=== PATIENT | male | born 1945 | race Caucasian/White ===

== ENCOUNTER 2017-05-13 15:33 | Inpatient (IN) ==
--- NOTE | 2017-05-12 22:03 | Discharge Summary ---
<Isabel Mai E - Last Filed: 05/12/17 22:01> Date of Encounter: 05/12/17 - Discharge Diagnosis (1) Arthritis of left hip Priority: Primary Status: Chronic (2) CAD (coronary artery disease) Priority: Secondary Status: Chronic Qualifiers: Coronary Disease-Associated Artery/Lesion type: unspecified vessel or lesion type [place] vs. transplanted heart: unspecified whether [place] or transplanted heart Associated angina: angina presence unspecified Qualified Code(s): I25.10 - Atherosclerotic heart disease of [place] coronary artery without angina pectoris (3) Ischemic cardiomyopathy Priority: Secondary Status: Chronic (4) Cardiac LV ejection fraction 21-30% Priority: Secondary Status: Chronic Comments: per patient 20-25% (5) History of heart artery stent Priority: Secondary Status: Chronic (6) Hypertension Priority: Secondary Status: Chronic Qualifiers: Hypertension type: unspecified Qualified Code(s): I10 - Essential (primary ) hypertension (7) Hyperlipidemia Priority: Secondary Status: Chronic Qualifiers: Hyperlipidemia type: unspecified Qualified Code(s): E78.5 - Hyperlipidemia , unspecified (8) BPH (benign prostatic hyperplasia) Priority: Secondary Status: Chronic Qualifiers: Lower urinary tract symptom presence: unspecified whether lower urinary tract symptoms present Qualified Code(s): N40.0 - Benign prostatic hyperplasia without lower urinary tract symptoms - Discharge Medications Prescriptions: Aspirin Enteric Coated [Aspirin EC] 325 mg PO BID #20 tablet. OxyKYLIEDONLinwood Immed Rel [Roxicodone 5 MG] 5 mg PO Q4HR PRN #30 tablet PRN Reason: Pain Home Medications: Atorvastatin [Lipitor] 40 mg PO HS 05/13/17 [History] Finasteride [Proscar] 5 mg PO DAILY 05/13/17 [History] Losartan/Hydrochlorothiazide [Hyzaar 100-25 Tablet] 1 each PO DAILY 05/13/17 [ History] Metoprolol XL (24 HR) Succ [Toprol Xl] 50 mg PO DAILY 05/13/17 [History] Spironolactone [Aldactone] 25 mg PO DAILY 05/13/17 [History] Aspirin Enteric Coated [Aspirin EC] 325 mg PO BID #20 tablet. 05/14/17 [Rx] OxyCODONE Immed Rel [Roxicodone 5 MG] 5 mg PO Q4HR PRN #30 tablet 05/14/17 [Rx] Allergies/Adverse Reactions: Allergies No Known Allergies Allergy (Verified 05/13/17 16:30) Primary care physician: Bright Alcantara CNP - Patient Status Disposition: Home Health Service Condition: Good - Discharge Instructions Follow Up With: Bright Alcantara CNP [Primary Care Provider] - - Hospital Course Hospital course: Mr. Cheema is a 71 year old male - Time Spent with Patient Total time spent providing and/or coordinating discharge services: - VTE Documentation of Mechanical Device: Venous foot pump, device <Mega Lynn - Last Filed: 05/14/17 06:45> Date of Encounter: 05/14/17 Time of Encounter: 06:43 - Discharge Diagnosis (1) Status post total hip replacement, left Priority: Primary Status: Acute (2) Arthritis of left hip Priority: Primary Status: Acute (3) CAD (coronary artery disease) Priority: Secondary Status: Chronic Qualifiers: Coronary Disease-Associated Artery/Lesion type: unspecified vessel or lesion type [place] vs. transplanted heart: unspecified whether [place] or transplanted heart Associated angina: angina presence unspecified Qualified Code(s): I25.10 - Atherosclerotic heart disease of [place] coronary artery without angina pectoris (4) Ischemic cardiomyopathy Priority: Secondary Status: Chronic (5) Cardiac LV ejection fraction 21-30% Priority: Secondary Status: Chronic (6) History of heart artery stent Priority: Secondary Status: Chronic (7) Hypertension Priority: Secondary Status: Chronic Qualifiers: Hypertension type: unspecified Qualified Code(s): I10 - Essential (primary ) hypertension (8) Hyperlipidemia Priority: Secondary Status: Chronic Qualifiers: Hyperlipidemia type: unspecified Qualified Code(s): E78.5 - Hyperlipidemia , unspecified (9) BPH (benign prostatic hyperplasia) Priority: Secondary Status: Chronic Qualifiers: Lower urinary tract symptom presence: unspecified whether lower urinary tract symptoms present Qualified Code(s): N40.0 - Benign prostatic hyperplasia without lower urinary tract symptoms Primary care physician: Bright Alcantara CNP - Patient Status Functional capacity at discharge: uses cane/walker Overall status at discharge: patient is progressing back to baseline - Hospital Course Hospital course: Mr. Cheema is a 71 year old male Status post left total hip replacement. The patient had an uneventful postoperative course. They received antibiotics and physical therapy and were discharged in stable condition. There will follow-up in the office in 2 weeks. Aspirin DVT prophylaxis - Time Spent with Patient Total time spent providing and/or coordinating discharge services:
--- NOTE | 2017-05-13 15:54 | History & Physical Report ---
Date of Encounter: 05/13/17 Time of Encounter: 15:54 24 Hour HP Update - Instructions Instructions: If the History and Physical is less than 30 days old and was completed prior to A.M. admission and or procedure and has NOT been updated on calendar day of procedure please complete this update prior to performing procedure. - Update Patient reports changes in Medical Condition: No Changes in examination, assessment, or condition: No Changes in Medication: No Preop tests/diagnostics Reviewed: Yes Surgery Remains Indicated: Yes Consent for Planned Operative Procedure(s) Verified: Yes - Pre-Operative Checklist Preoperative Checklist Indicated: No Prophylactic Antibiotic Ordered: Yes Is VTE Prophylaxis Indicated?: Yes
[2017-05-13] MEDS ORDERED: CeFAZolin Pre 2,000 MG/100 ML 2,000 MG/100 ML BAG IVPB ONE (15:59)
[2017-05-13] MEDS ORDERED: Lidocaine -MPF 1% 2 ML VIAL ID ONE (15:59)
[2017-05-13] MEDS ORDERED: Ringers Solution, Lactated 1,000 ML IVC SCH ×2 (16:00→20:43)
[2017-05-13] MEDS ORDERED: Famotidine 20 MG/2 ML VIAL IVP ONE (16:03)
[2017-05-13] MEDS ORDERED: Acetaminophen IV 1,000 MG/100 ML INFUS..BTL IVPB ONE (16:03)
--- NOTE | 2017-05-13 16:42 | Anesthesia Evaluation PreOp ---
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 History: Denies Any Significant HX Other Medical History: Denies Any Significant HX Anesthesia History: No Prior Anesthetic Complications Alcohol Use: rarely Drug use: none Medications and Allergies Aspirin [Lo-Dose Aspirin EC] 81 mg PO DAILY 05/13/17 [History] Atorvastatin Calcium [Lipitor] 40 mg PO DAILY 05/13/17 [History] Finasteride [Proscar] 5 mg PO DAILY 05/13/17 [History] Losartan/Hydrochlorothiazide [Hyzaar 100-25 Tablet] 1 each PO DAILY 05/13/17 [ History] Metoprolol [Lopressor] 50 mg PO BID 05/13/17 [History] Allergies No Known Allergies Allergy (Verified 05/13/17 16:30) - Meds/Allergy Pre-op Review Medications Reviewed: Yes Allergies Reviewed: Yes Beta Blockers on Current Med List: Yes (Took Metoprolol today 1300) Anesthesia Results - Labs Laboratory Tests 05/10/17 05/10/17 16:20 16:20 Hgb 12.6 L Hct 39.0 Plt Count 285 Sodium 139 Potassium 4.6 H BUN 24 Creatinine 1.14 - Imaging EKG: report reviewed (Sinus Rhytmn with Arrhythmia) Additional studies: Stress Test Negative, LVEF 20-25% Anesthesia Exam O2 Sat Height 1.89 m Height 1.89 m Weight 103.136 kg Weight 103.136 kg O2 Sat by Pulse Oximetry 96 Vital Signs Temp Pulse Resp BP Pulse Ox 97.9 F 74 20 124/77 96 05/13/17 16:03 05/13/17 16:03 05/13/17 16:03 05/13/17 16:03 05/13/17 16:03 Height: 6'3 Weight: 220 lbs NPO (# of Hours): MN Pain Scale: 0 - HEENT Pupil (Motor): Pupils equal, EOMI Mallampati: III Teeth: Normal, Missing Oral Opening: Less than or equal to 3 - CLOTH MERCERIZER BACK TENDER LOC: Oriented CLOTH MERCERIZER BACK TENDER Motor: Normal RUE, Normal LUE, Normal RLE, Normal LLE, Normal Face CLOTH MERCERIZER BACK TENDER Sensory: Normal: RUE, LUE, RLE, LLE, Face - Cardiac Rhythm: Regular Murmur: None JVD: No Carotid Bruit: No - Pulmonary Breath Sounds: bilateral Clear Respiratory Effort: Symmetrical Anesthesia Assess/Plan ASA Score: 4 (Cardiomyopathy HTN) Modified Rafiq Scale for Level of Consciousness: Cooperative, oriented, and tranquil Anesthetic Plan: General, Regional Monitoring Plan: Standard Monitors Recovery Plan: PACU (Discussed GA and RA, highr risk, agrees to proceed)
[2017-05-13] MEDS ORDERED: *HR* Midazolam HCl 2 MG/2 ML VIAL ONE (16:43)
[2017-05-13] MEDS ORDERED: *HR* Propofol 200 MG/20 ML VIAL IVP ONE (16:43)
[2017-05-13] MEDS ORDERED: *HR* FentaNYL (PF) 100 MCG/2 ML VIAL ONE ×3 (16:43→18:56)
[2017-05-13] MEDS ORDERED: *HR* Etomidate 40 MG/20 ML VIAL IVP ONE (16:44)
[2017-05-13] MEDS ORDERED: Lidocaine -MPF 2% 2 ML VIAL ONE ×2 (16:44→16:45)
[2017-05-13] MEDS ORDERED: Bupivacaine/Clonidine Syringe 1 EACH SYRINGE ONE (16:57)
[2017-05-13] MEDS ORDERED: Heparin 1,000 UNITS/500 mL NS 0 ML ONE (17:00)
[2017-05-13] MEDS ORDERED: Heparin 1,000 UNITS/500 mL NS 500 ML ONE (17:01)
[2017-05-13] MEDS ORDERED: Ondansetron 4 MG/2 ML VIAL IVP PRN ×2 (17:48→20:43)
--- NOTE | 2017-05-13 17:51 | Anesthesia Procedures ---
Date of Encounter: 05/13/17 Time of Encounter: 17:40 Procedures: Anesthesia - Nerve Block Procedure Date: 05/13/17 Time: 17:40 Allergies/Adv Reactions: nka Surgical Procedure: left NABOR Checklist: Correct Patient Identifier, Correct procedure, History checked Correct side: Left Blood Thinner: No Monitor Applied: EKG, BP, Pulse Oximetry Supplemental Oxygen via Nasal Cannula (L/min): 2 Sedation: Versed (mg): 1 Sedation: Fentanyl (mcg): 100 Indication: Post Op Analgesia Pre-op Neuro Deficits: No Block Type: Other (Fascia Iliaca) Catheter placed: No Sterile Technique: Yes Ultrasound used: Yes Anatomy identified: Yes Visual spread of Local: Yes Neuro Stimulation: No Blood on Needle Aspiration: No Smooth Injection of Local: Yes Pain with Injection of Local: No Prep: Chlorhexadine Needle: 22 x 50 mm Stimuplex Local: 0.25% Bupivicaine w/Clonidine 20 mcg/cc Volume (cc): 80 Number of Attempts: 1 Complications: None/effective block Vitals: Vital Signs/O2 Sat/Glucose, Most Recent Temp Pulse Resp BP Pulse Ox 97.9 F 71 14 134/84 99 05/13/17 16:03 05/13/17 17:18 05/13/17 17:18 05/13/17 17:18 05/13/17 17:18
--- NOTE | 2017-05-13 17:53 | Anesthesia Procedures ---
Date of Encounter: 05/13/17 Time of Encounter: 17:45 Procedures: Anesthesia - Arterial Line Consent obtained: written consent Time out performed: Yes Sedation: Versed (mg): 1 Supplemental Oxygen via Nasal Cannula (L/min): 2 Local Anesthetic: Lidocaine 1% Size (Gauge): 20 Length (inches): 1 3/4 Technique Used: sterile prep, guide wire technique, direct puncture technique Post-Procedure: line taped into place, dry sterile dressing placed Patient tolerated procedure: well, no complications Complications: none Site: Radial R Vitals: Vital Signs/O2 Sat/Glucose, Most Recent Temp Pulse Resp BP Pulse Ox 97.9 F 71 14 134/84 99 05/13/17 16:03 05/13/17 17:18 05/13/17 17:18 05/13/17 17:18 05/13/17 17:18
[2017-05-13] MEDS ORDERED: *HR* Enoxaparin 30 MG/0.3 ML SYRINGE SQ SCH (18:00)
[2017-05-13] MEDS ORDERED: *HR* Succinylcholine 200 MG/10 ML VIAL IVP ONE (18:07)
[2017-05-13] MEDS ORDERED: EPHEDrine 50 MG/ML VIAL ONE (18:12)
[2017-05-13] MEDS ORDERED: Dexamethasone 4 MG/ML VIAL ONE (18:24)
[2017-05-13] MEDS ORDERED: Ondansetron 4 MG/2 ML VIAL ONE (18:24)
--- NOTE | 2017-05-13 18:55 | Orthopedic Operative Note ---
Date of procedure: 05/13/17 Pre-op diagnosis: Left hip arthritis Post-op diagnosis: same Procedure: Procedure: Left Total Hip Replacment Estimated blood loss: 200 cc Hardware: Metal and polyethylene replacement. Biomet DM Cup: 58 G7 fin cup Femoral size 17 echo full profile lateralized stem Head: 12 head with Azucena Procedural Notes: Grade 4 arthritic changes femoral head acetabular socket. Operative procedure: The patient was brought to the operating room and placed on the operating room table. After general anesthesia was administered the patient was placed in the lateral decubitus position with the operative leg up. All pressure points were padded appropriately and the head was stabilized in the neutral position. The operative extremity was prepped and draped in the sterile surgical fashion patient received IV antibiotic prior to skin incision. A standard posterior approach is made to the operative hip, the incision was made through the skin and subcutaneous tissue hemostasis was obtained with Bovie cautery. Using careful sharp dissection the fascia was identified and incised exposing the external rotators. The external rotators were released off the greater trochanter and tagged with #2 FiberWire suture. The capsule was T'd open and the hip was brought into internal rotation. Patient noted to have grade 4 arthritic changes femoral head. The femoral neck cut was made at the appropriate level. An anterior capsulotomy was performed for the anterior retractor. Soft tissues removed from the acetabulum. Patient noted to have grade 4 arthritic changes acetabulum. Acetabulum was first reamed medially, and then reamed in 15 degrees of anteversion and 45 degrees off the horizontal. It was reamed up to the appropriate size 58 The appropriate-sized 58 acetabular cup was impacted in place in 15 degrees of anteversion and 45 degrees off the horizontal. This had good fit and fixation. The hip was brought back in to internal rotation and prepared with the box blank machine operator helper followed by the canal finder followed by broaching process in 20 degrees anteversion. It was broached up to the appropriate size 17 The femoral implant was impacted in place in 20 degrees of anteversion. Trial reduction found the hip to be stable with 12 head and Azucena. The trials were removed and the real implants were impacted in place. The hip was reduced, patient had apparent equal leg lengths. The hip had excellent stability with forward flexion to 90 degrees adduction of 30 degrees and internal rotation of 60 degrees. The hip had no shuck. The hips after 2 minutes with a Betadine saline solution. It was irrigated out with 2 L of pulse irrigation. The hip was closed by the PAUL Mai. Fascia was closed with a running #2 PDS suture. The deep tissue was irrigated and closed deep with #1 PDS suture superficially with 0 PDS suture and skin was closed with Dermabond and skin bhargavi. The patient was placed in a sterile dressing and abduction pillow. The patient was extubated and transferred to the recovery room in stable condition. Anesthesia: GETA Surgeon: Mega Lynn Condition: stable Disposition: PACU
[2017-05-13] MEDS: *HR* HYDROmorphone (PF) 1 MG/ML SYRINGE IVP PRN ×2 (19:35→19:43)
--- NOTE | 2017-05-13 19:57 | Anesthesia Evaluation Post Op ---
Date of Encounter: 05/13/17 Time of Encounter: 19:57 - Vital Signs Vital Signs: Vital Signs/O2 Sat/Glucose, Most Current Temp Pulse Resp BP Pulse Ox 05/13/17 19:55 97.4 F L 76 20 138/75 98 05/13/17 19:45 80 20 158/85 96 05/13/17 19:35 80 20 138/84 96 05/13/17 19:25 97.4 F L 73 22 148/86 97 05/13/17 17:18 71 14 134/84 99 05/13/17 16:03 97.9 F 74 20 124/77 96 - Lungs Lungs: Clear Ascult./Percussion - Airway Airway: Non-obstructed - Cardiovascular Regular Rate - Mental Status Mental Status: Alert & Oriented, Answers Appropriately - Pain Pain Scale: 2 - Nausea Vomiting Nausea Vomiting: Not Present - Hydration Hydration: NPO - Discharge PostOp Status: Transfer Patient to floor
[2017-05-13 20:09] LABS: Hematocrit 33.7 % (37.5-50.1)
[2017-05-13 20:12] LABS: Hemoglobin 10.9 g/dL (12.9-16.9)
[2017-05-13] MEDS ORDERED: Sennosides 8.6 MG TABLET PO PRN (20:43)
[2017-05-13] MEDS ORDERED: Naloxone 0.4 MG/ML INJ IVP PRN (20:43)
[2017-05-13] MEDS ORDERED: *HR* HYDROmorphone (PF) 1 MG/ML SYRINGE IVP PRN (20:43)
[2017-05-13] MEDS ORDERED: MOM Conc 10 ML UD.LIQ PO PRN (20:43)
[2017-05-13] MEDS ORDERED: *HR* OxyCODONE Immed Rel 5 MG TABLET PO PRN (20:43)
[2017-05-13] MEDS ORDERED: Temazepam 15 MG CAPSULE PO PRN (20:43)
[2017-05-13] MEDS: Ascorbic Acid 500 MG TABLET PO SCH (21:10)
[2017-05-14] MEDS: ceFAZolin 2,000 MG in D5% in Water 100 ML IVPB SCH ×2 (00:44→08:01)
[2017-05-14] MEDS: *HR* Enoxaparin 30 MG/0.3 ML SYRINGE SQ SCH ×2 (06:42→16:42)
--- NOTE | 2017-05-14 06:46 | Orthopedics Progress Note ---
Date of Encounter: 05/14/17 Time of Encounter: 06:46 - Assessment and Plan (1) Status post total hip replacement, left Current Visit: Yes Status: Acute (2) Arthritis of left hip Current Visit: Yes Status: Acute (3) CAD (coronary artery disease) Current Visit: Yes Status: Chronic Qualifiers: Coronary Disease-Associated Artery/Lesion type: unspecified vessel or lesion type [place] vs. transplanted heart: unspecified whether [place] or transplanted heart Associated angina: angina presence unspecified Qualified Code(s): I25.10 - Atherosclerotic heart disease of [place] coronary artery without angina pectoris (4) Ischemic cardiomyopathy Current Visit: Yes Status: Chronic (5) Cardiac LV ejection fraction 21-30% Current Visit: Yes Status: Chronic (6) History of heart artery stent Current Visit: Yes Status: Chronic (7) Hypertension Current Visit: Yes Status: Chronic Qualifiers: Hypertension type: unspecified Qualified Code(s): I10 - Essential (primary ) hypertension (8) Hyperlipidemia Current Visit: Yes Status: Chronic Qualifiers: Hyperlipidemia type: unspecified Qualified Code(s): E78.5 - Hyperlipidemia , unspecified (9) BPH (benign prostatic hyperplasia) Current Visit: Yes Status: Chronic Qualifiers: Lower urinary tract symptom presence: unspecified whether lower urinary tract symptoms present Qualified Code(s): N40.0 - Benign prostatic hyperplasia without lower urinary tract symptoms Subjective Interval history: Patient was seen this morning doing well without complaints. Afebrile vital signs stable. Operative extremity: Neurovascularly intact Dressing clean dry and intact Calves nontender Assessment and plan: Continue with postoperative care Hematocrit 33 plan for discharge today with home health Objective Vital signs: Vital Signs Temp Pulse Resp BP Pulse Ox 05/14/17 03:28 97.6 F 66 16 109/63 100 05/13/17 23:30 98.6 F 62 18 116/65 98 05/13/17 22:20 96.6 F L 65 16 115/69 99 05/13/17 21:15 96.7 F L 65 16 120/68 99 05/13/17 20:45 97.7 F 73 16 118/75 94 05/13/17 20:15 97.6 F 72 18 127/78 95 05/13/17 20:05 97.4 F L 71 16 139/73 99 05/13/17 19:55 97.4 F L 76 20 138/75 98 05/13/17 19:45 80 20 158/85 96 05/13/17 19:35 80 20 138/84 96 05/13/17 19:25 97.4 F L 73 22 148/86 97 05/13/17 17:18 71 14 134/84 99 05/13/17 16:03 97.9 F 74 20 124/77 96 Intake and Output 05/13/17 05/13/17 05/14/17 15:59 23:59 07:59 Intake Total 250 / 250 Output Total 200 / 200 150 / 150 Balance -200 / -200 100 / 100 Intake: Oral 250 / 250 Output: Urine 150 / 150 Estimated Blood Loss 200 / 200 Other: Weight 103.136 kg 103.136 kg - Labs CBC & BMP: 05/13/17 19:54 Labs: Abnormal lab results Hgb 10.9 g/dL (12.9-16.9) L D 05/13/17 19:54 Hct 33.7 % (37.5-50.1) L 05/13/17 19:54 - VTE Documentation of Mechanical Device: Venous foot pump, device Consult Discharge Plan - Plan Referrals: Bright Alcantara [facility] OFFICER [Primary Care Provider] - Prescriptions: Aspirin Enteric Coated [Aspirin EC] 325 mg PO BID #20 tablet. OxyCODONLinwood Immed Rel [Roxicodone 5 MG] 5 mg PO Q4HR PRN #30 tablet PRN Reason: Pain
[2017-05-14 07:36] LABS: Hematocrit 32.1 % (37.5-50.1); Hemoglobin 10.2 g/dL (12.9-16.9)
[2017-05-14 07:50] LABS: BUN/Creatinine Ratio 23 (6-26); Blood Urea Nitrogen 25 mg/dL (8-26); Calcium 8.7 mg/dL (8.6-10.8); Carbon Dioxide 26 mEq/L (19-29); Chloride 103 mEq/L (98-109); Glucose 160 mg/dL (70-99); Osmolality,Calculated 292 (280-300); Potassium 4.5 mEq/L (3.5-4.5); Sodium 137 mEq/L (136-145); eGFR For African Americans > 60 (> 60); eGFR For Non-African Americans > 60 (> 60)
[2017-05-14] MEDS: Aspirin Enteric Coated 81 MG Tablet PO SCH (07:56)
[2017-05-14] MEDS: Multivit/Ca/Min/Fe/FA 1 TAB TABLET PO SCH (07:56)
[2017-05-14] MEDS: Losartan/HCTZ 50-12.5 TABLET PO SCH (07:56)
[2017-05-14] MEDS: Ascorbic Acid 500 MG TABLET PO SCH ×2 (07:56→16:38)
[2017-05-14] MEDS: Finasteride 5 MG TABLET PO SCH (07:56)
[2017-05-14] MEDS: *HR* OxyCODONE Immed Rel 5 MG TABLET PO PRN ×3 (08:01→22:22)
--- NOTE | 2017-05-14 16:27 | Physician Discharge Referral ---
ExtendedCare Referral Info Transfer To: [facility] Provider in Charge: Dr. Mega Lynn Institutional Level of Care: Skilled - Diagnosis (1) Status post total hip replacement, left Priority: Primary Status: Acute (2) Arthritis of left hip Priority: Secondary Status: Chronic (3) CAD (coronary artery disease) Priority: Secondary Status: Chronic (4) Ischemic cardiomyopathy Priority: Secondary Status: Chronic (5) Cardiac LV ejection fraction 21-30% Priority: Secondary Status: Chronic (6) History of heart artery stent Priority: Secondary Status: Chronic (7) Hypertension Priority: Secondary Status: Chronic (8) Hyperlipidemia Priority: Secondary Status: Chronic (9) BPH (benign prostatic hyperplasia) Priority: Secondary Status: Chronic Expected Duration of Placement: 30days Prognosis: Good Aware of Diagnosis: Patient Aware of Prognosis: Patient - Transfer Medications Prescriptions: OxyCODONE Immed Rel [Roxicodone 5 MG] 5 mg PO Q4HR PRN #30 tablet PRN Reason: Pain Aspirin Enteric Coated [Aspirin EC] 325 mg PO BID #20 tablet.dr Pérez Medications: Atorvastatin [Lipitor] 40 mg PO HS 05/13/17 [History] Finasteride [Proscar] 5 mg PO DAILY 05/13/17 [History] Losartan/Hydrochlorothiazide [Hyzaar 100-25 Tablet] 1 each PO DAILY 05/13/17 [ History] Metoprolol XL (24 HR) Succ [Toprol Xl] 50 mg PO DAILY 05/13/17 [History] Spironolactone [Aldactone] 25 mg PO DAILY 05/13/17 [History] Aspirin Enteric Coated [Aspirin EC] 325 mg PO BID #20 tablet. 05/14/17 [Rx] OxyCODONE Immed Rel [Roxicodone 5 MG] 5 mg PO Q4HR PRN #30 tablet 05/14/17 [Rx] Allergies/Adverse Reactions: Allergies No Known Allergies Allergy (Verified 05/13/17 16:30) - Respiratory Orders Smoking Cessation: Smoking cessation has been advised. For more information, call the [facility] Tobacco Quit Line at 8-932-KUAX-NOW. - Ancillary Orders May use pressure relief devices daily prn, May go on [place]IC[place] w/family/respon republican w /meds at nurse discretion PRN, May consult with Dentist, Flying Squad Salesperson, Stopperer Assembler PRN - Mobility Orders Ambulate (with walker) - Rehabiliation Orders Rehab Potential: Good Rehab Orders: ROM Exercises, Evaluation for Physical Therapy, Evaluation for Occupational Therapy Other: PT/OT WBAT Total Hip precautions for 6 weeks. Apply cold therapy wrap 3-6x/day for 20 minutes at a time. Encourage ambulation throughout the day and incentive spirometer 10x/hour. Abductor pillow while in bed. - Treatments Skin tear care topically daily PRN per policy List/Other: Opsite placed. Keep dressing intact until first follow up appointment. If > 50% saturated,notify office, remove dressing and place appropriate dressing back in place. Dressing is water resistant, not water-proof. OK to shower, but do not get dressing wet. - Diet Orders Regular CERTIFICATION: I certify that the transfer of the above named patient to an Extended Care Facility is necessary for the continuing treatment of the diagnosis listed. The above information is true and accurate reflection of patient's current condition. Confidential - Redisclosure prohibited without a patient's written consent.
[2017-05-15 06:08] LABS: Hematocrit 26.2 % (37.5-50.1)
[2017-05-15 06:17] LABS: Hemoglobin 8.6 g/dL (12.9-16.9)
[2017-05-15 06:22] LABS: Calcium 8.4 mg/dL (8.6-10.8); Potassium 3.7 mEq/L (3.5-4.5)
[2017-05-15] MEDS: *HR* Enoxaparin 30 MG/0.3 ML SYRINGE SQ SCH (06:32)
--- NOTE | 2017-05-15 07:55 | Orthopedics Progress Note ---
Date of Encounter: 05/15/17 Time of Encounter: 07:55 - Assessment and Plan (1) Status post total hip replacement, left Current Visit: Yes Status: Acute (2) Arthritis of left hip Current Visit: Yes Status: Chronic (3) CAD (coronary artery disease) Current Visit: Yes Status: Chronic Qualifiers: Coronary Disease-Associated Artery/Lesion type: unspecified vessel or lesion type [place] vs. transplanted heart: unspecified whether [place] or transplanted heart Associated angina: angina presence unspecified Qualified Code(s): I25.10 - Atherosclerotic heart disease of [place] coronary artery without angina pectoris (4) Ischemic cardiomyopathy Current Visit: Yes Status: Chronic (5) Cardiac LV ejection fraction 21-30% Current Visit: Yes Status: Chronic (6) History of heart artery stent Current Visit: Yes Status: Chronic (7) Hypertension Current Visit: Yes Status: Chronic Qualifiers: Hypertension type: unspecified Qualified Code(s): I10 - Essential (primary ) hypertension (8) Hyperlipidemia Current Visit: Yes Status: Chronic Qualifiers: Hyperlipidemia type: unspecified Qualified Code(s): E78.5 - Hyperlipidemia , unspecified (9) BPH (benign prostatic hyperplasia) Current Visit: Yes Status: Chronic Qualifiers: Lower urinary tract symptom presence: unspecified whether lower urinary tract symptoms present Qualified Code(s): N40.0 - Benign prostatic hyperplasia without lower urinary tract symptoms Subjective Interval history: Patient was seen this morning doing well without complaints. Afebrile vital signs stable. Operative extremity: Neurovascularly intact Dressing clean dry and intact Calves nontender Assessment and plan: Continue with postoperative care Hemoglobin 8.6 asymptomatic plan for discharge today with home health Objective Vital signs: Vital Signs Temp Pulse Resp BP Pulse Ox 05/14/17 23:52 97.2 F L 65 17 101/51 97 05/14/17 20:11 97.4 F L 67 17 103/55 97 05/14/17 15:43 97.7 F 81 16 97/50 96 05/14/17 12:03 98.2 F 58 16 93/47 97 05/14/17 10:29 108/66 Intake and Output 05/14/17 05/14/17 05/15/17 15:59 23:59 07:59 Intake Total 120 / 120 400 / 400 Balance 120 / 120 400 / 400 Intake: Oral 120 / 120 400 / 400 Other: Meal Breakfast Dinner Percent of Meal Consumed 75% 100% # Voids 2 Weight 103 kg Patient Weight 05/15/17 23:59 Weight 103 kg - Labs CBC & BMP: 05/15/17 05:54 05/15/17 05:54 Labs: Abnormal lab results Hgb 8.6 g/dL (12.9-16.9) L D 05/15/17 05:54 Hct 26.2 % (37.5-50.1) L 05/15/17 05:54 Sodium 135 mEq/L (136-145) L 05/15/17 05:54 BUN 46 mg/dL (8-26) H D 05/15/17 05:54 Creatinine 1.60 mg/dL (0.72-1.25) H 05/15/17 05:54 Est GFR ( Amer) 52 (> 60) L 05/15/17 05:54 Est GFR (Non-Af Amer) 43 (> 60) L 05/15/17 05:54 BUN/Creatinine Ratio 29 (6-26) H 05/15/17 05:54 Glucose 133 mg/dL (70-99) H 05/15/17 05:54 Calcium 8.4 mg/dL (8.6-10.8) L 05/15/17 05:54 - VTE Documentation of Mechanical Device: Venous foot pump, device Consult Discharge Plan - Plan Referrals: Bright Alcantara CNP [Primary Care Provider] - Prescriptions: Aspirin Enteric Coated [Aspirin EC] 325 mg PO BID #20 tablet.dr Chua Immed Rel [Roxicodone 5 MG] 5 mg PO Q4HR PRN #30 tablet PRN Reason: Pain
[2017-05-15 08:06] VITALS: BP 122/69
[2017-05-15] MEDS: Finasteride 5 MG TABLET PO SCH (08:32)
[2017-05-15] MEDS: Multivit/Ca/Min/Fe/FA 1 TAB TABLET PO SCH (08:32)
[2017-05-15] MEDS: Ascorbic Acid 500 MG TABLET PO SCH (08:32)
[2017-05-15] MEDS: Aspirin Enteric Coated 81 MG Tablet PO SCH (08:32)
[2017-05-15] MEDS: Losartan/HCTZ 50-12.5 TABLET PO SCH (08:33)
== END 2017-05-15 12:08 | disposition home health service (06) | DRG 470 ==
LOC: SAMDAY 15:33 → 3NENU 20:33
PROVIDERS: ADMIT Orthopaedic Surgery; ATTEND Orthopaedic Surgery

== ENCOUNTER 2019-01-14 04:44 | Inpatient (IN) ==
[2019-01-14 09:57] LABS: Basophils % 0.2 %; Eosinophils # 0.1 K/mcL (0.0-0.6); Eosinophils % 0.7 %; Hematocrit 32.3 % (37.5-50.1); Hemoglobin 11.3 g/dL (12.9-16.9); Immature Granulocytes % 0.4 % (0-4); Lymphocytes # 0.6 K/mcL (0.6-4.6); Lymphocytes % 4.8 %; Mean Corpuscular Hemoglobin 29.6 pg (28.0-33.3); Mean Corpuscular Volume 84.6 fL (83.0-100.0); Mean Platelet Volume 9.4 fL (9.4-12.4); Monocytes # 1.2 K/mcL (0.0-1.3); Monocytes % 9.9 %; Neutrophils # 10.4 K/mcL (1.6-8.9); Platelet Count 257 K/mcL (140-400); Red Blood Count 3.82 M/mcL (4.19-5.50); Red Cell Distribution Width 12.9 % (11.5-14.5)
[2019-01-14 10:18] LABS: Alanine Aminotransferase 15 Units/L (7-52); Albumin 3.2 g/dL (3.5-5.7); Albumin/Globulin Ratio 1.5 (1.1-2.2); Alkaline Phosphatase 53 Units/L (34-104); Aspartate Amino Transferase 21 Units/L (13-39); BUN/Creatinine Ratio 18 (6-26); Bilirubin,Total 0.5 mg/dL (0.3-1.0); Blood Urea Nitrogen 9 mg/dL (8-23); Calcium 8.4 mg/dL (8.6-10.3); Carbon Dioxide 35 mEq/L (23-29); Chloride 81 mEq/L (98-107); Globulin 2.1 g/dL (2.4-3.5); Glucose 123 mg/dL (70-105); Osmolality,Calculated 250 (280-300); Potassium 3.8 mEq/L (3.5-5.1); Sodium 120 mEq/L (136-145); Total Protein 5.3 g/dL (6.4-8.9); eGFR For Non-African Americans > 60 (> 60)
[2019-01-14] MEDS ORDERED: Acetaminophen 325 MG TABLET PO PRN (12:16)
[2019-01-14] MEDS ORDERED: Naloxone 0.4 MG/ML INJ IVP PRN (12:16)
[2019-01-14] MEDS ORDERED: Isovue-370 500 ML BOTTLE IVP ONE (12:21)
[2019-01-14] MEDS ORDERED: Melatonin 3 MG TABLET PO PRN (12:26)
[2019-01-14] MEDS ORDERED: 0.9 % Sodium Chloride 1,000 ML IVC SCH (12:30)
--- NOTE | 2019-01-14 12:59 | Nephrology Consult Note ---
Date of Encounter: 01/14/19 Time of Encounter: 12:30 Assessment and Plan (1) Hyponatremia Current Visit: Yes Status: Acute Hyponatremia without edema on exam. PNa at 120 and appears to be acute on chronic and progressively worsening. Potential differential diagnoses includes: medication from HCTZ, CHF with low EF, prerenal (he has lost so much weight r ecently) vs undiagnosed malignancy induced hyponatremia. Recommend avoiding thiazide type diuretics, and so will have to stop the HCTZ. Agree with checking TSH, Cortisol to ensure that there is no hypothyroidism or adrenal insufficiency contributing to the hyponatremia. Also agree with check U Na and Uosm with frequent PNa checks to ensure that the hyponatremia is slowly and safely improved for a goal of 6-8mEq per 24hr. Further recommendations to follow based upon the pending work up. Agree with gentle 0.9% saline for now since he may be slightly dry appearing on exam. Thank you for consulting the [facility]; will follow with you. (2) Weight loss Current Visit: Yes Status: Acute Check HIV and hepatitis (3) BPH (benign prostatic hyperplasia) Current Visit: No Status: Chronic Agree with CT abd to ensure there is no urinary retention, which could contribute to hyponatremia if he had a partial urinary track obstruction. Qualifiers: Lower urinary tract symptom detail: unspecified Qualified Code(s): N40.1 - Benign prostatic hyperplasia with lower urinary tract symptoms (4) Hypertension Current Visit: No Status: Chronic Hold the thiazide diuretics. Qualifiers: Hypertension type: unspecified Qualified Code(s): I10 - Essential (primary) hypertension (5) Ischemic cardiomyopathy Current Visit: No Status: Chronic He had not JVD or peripheral edema on exam, but has known chronic systolic HF. Check BNP. History of Present Illness - Reason for Consult Consult date: 01/14/19 hyponatremia Requesting physician: Charles Pritchett - Chief Complaint Hyponatremia - History of Present Illness Colin Cheema is a very pleasant 73 y/o WM with a pmh of BPH, HTN, chronic systlic CHF and recent impressive weight loss over the last 6-9 months who transferred from [facility][1] with hyponatremia. I received a nice page from the hospitalist. The pt was largely somnolent and unable to provide detail history, but his granddaughter was present and help supplement history. She said that he had lived alone after his , and the granddaughter said that he found a lady partner who stayed with him who may have been a drug user, and just recently the pt moved in with his granddaughter. Since then he has gained some weight back since they are ensuring he is eating/drinking better. He drinks only about the equivalent of 1 bottle of water per day but has been consuming Gatorade mostly and soups. He has not been drinking beer/wine/liquor. He has been more confused, according to the granddaughter over this week. She said he was in the ER on Saturday at [place], and then hospitalized there for the last few days; he had been awake mostly at night and napping during the day. He said he has been urinating well without feelings of urinary retention, he said. He has been taking HCTZ and not taking NSAIDs to the pt's knowledge. Family History: no relatives with ESRD were affirmed. Past Med Surg Social Fam HX - Past Medical History Medical history: CHF, coronary artery disease, hyperlipidemia, hypertension, my ocardial infarction Psychiatric history: no psych history - Past Surgical History Surgical History: hip replacement Additional surgical history: Back surgery, left hip sx, prostate sx. - Social History Smoking Status: Former smoker Smokeless Tobacco Status: No Alcohol use: none Drug use: none - Family History Mother Living Status: Hx Family Cardiac Disorders: Yes (HTN) Hx Family Cancer: Yes (breast, skin face) Father Living Status: Hx Family Cancer: Yes (prostate) Medications and Allergies Atorvastatin [Lipitor] 40 mg PO HS 05/13/17 [History] Finasteride [Proscar] 5 mg PO DAILY 05/13/17 [History] Losartan/Hydrochlorothiazide [Hyzaar 100-25 Tablet] 1 each PO DAILY 05/13/17 [History] Metoprolol XL (24 HR) Succ [Toprol Xl] 50 mg PO DAILY 05/13/17 [History] Spironolactone [Aldactone] 25 mg PO DAILY 05/13/17 [History] Acetaminophen [Tylenol] 1,000 mg PO DAILY 01/14/19 [History] Aspirin [Lo-Dose Aspirin EC] 81 mg PO DAILY 01/14/19 [History] Melatonin [Melatin] 3 mg PO HS PRN 01/14/19 [History] Allergy/AdvReac Type Severity Reaction Status Date / Time Penicillins [PCN] Allergy Hives Verified 01/14/19 10:19 Review of Systems ROS unobtainable: due to mental status Exam - Vital Signs Vital signs: Initial Vital Signs Temp Pulse Resp BP Pulse Ox 98.5 F 78 18 133/77 93 01/14/19 07:29 01/14/19 07:29 01/14/19 07:29 01/14/19 07:29 01/14/19 07:29 Vital Signs - Last 8 Hours Temp Pulse Resp BP Pulse Ox 01/14/19 11:04 98.2 F 80 18 141/85 96 01/14/19 07:29 98.5 F 78 18 133/77 93 Intake and Output 01/13/19 01/14/19 01/14/19 23:59 07:59 15:59 Other: Weight 86.2 kg Patient Weight 01/14/19 23:59 Weight 86.2 kg - General Appearance General appearance: appears started age, cachectic, fatigue, frail EENT: ATNC, mucous membranes dry Neck: no JVD, supple Respiratory: clear Cardiology: no edema, regular rate, regular rhythm, normal S1, normal S2 Gastrointestinal: normoactive bowel sounds, no guarding, no organomegaly Additional Comments: thin abd Integumentary: warm and dry Neurologic: confused, disoriented (and falls alseep easily) Musculoskeletal: no deformities, no cyanosis, no clubbing Psychiatric: cooperative Results - Lab Results 01/14/19 09:20 01/14/19 09:20 Most recent lab results Calcium 8.4 mg/dL (8.6-10.3) L 01/14/19 09:20 Consult Discharge Plan - Plan Referrals: Mika Stokes MD [Primary Care Provider] - 01/27/19 8:30 am
[2019-01-14] MEDS: Metoprolol XL (24 HR) Succ 50 MG TAB.ER.24H PO SCH (13:49)
[2019-01-14 15:12] LABS: Sodium, Urine 69.4 mEq/L
[2019-01-14 16:14] LABS: Hepatitis B Surface Antigen Nonreactive (Nonreactive)
--- NOTE | 2019-01-14 16:16 | Internal Med History&Physical ---
Date of Encounter: 01/14/19 Time of Encounter: 09:00 Internal Medicine - H&P: HPI Chief complaint: Low sodium level Admitted From: Home Plans for Post Hospital Care: Home History of present illness: Mr. Cheema is a 73 year old male transferred from [facility] for hyponatremia. Past medical history is significant for systolic CHF with LVEF 25-30%, hypertension, skin basal cell cancer, CAD S/P stent. Patient was admitted to [facility] for cough after eating since Saturday. Patient was treated as bronchitis. Patient also was found hyponatremia in the emergency room or [facility]. Patient was treated with 0.9% saline, however, his sodium level does not improve significantly. He was also given 3% saline but sodium level still low. Patient also has significant body weight loss, which is unintentional. He lost 45 lb over last 6 months. Patient did denies a fever, chest pain, nausea, or vomiting. Patient denies melena, heartburn. Patient was transferred to our hospital for further management. Past Med Surg Social Fam HX - Past Medical History Medical history: CHF, coronary artery disease, hyperlipidemia, hypertension, myocardial infarction Psychiatric history: no psych history - Past Surgical History Surgical History: hip replacement Additional surgical history: Back surgery, left hip sx, prostate sx. - Social History Smoking Status: Former smoker Smokeless Tobacco Status: No Alcohol use: none Drug use: none - Family History Mother Living Status: Hx Family Cardiac Disorders: Yes (HTN) Hx Family Cancer: Yes (breast, skin face) Father Living Status: Hx Family Cancer: Yes (prostate) Internal Medicine - H&P: Meds Atorvastatin [Lipitor] 40 mg PO HS 05/13/17 [History] Finasteride [Proscar] 5 mg PO DAILY 05/13/17 [History] Losartan/Hydrochlorothiazide [Hyzaar 100-25 Tablet] 1 each PO DAILY 05/13/17 [History] Metoprolol XL (24 HR) Succ [Toprol Xl] 50 mg PO DAILY 05/13/17 [History] Spironolactone [Aldactone] 25 mg PO DAILY 05/13/17 [History] Acetaminophen [Tylenol] 1,000 mg PO DAILY 01/14/19 [History] Aspirin [Lo-Dose Aspirin EC] 81 mg PO DAILY 01/14/19 [History] Melatonin [Melatin] 3 mg PO HS PRN 01/14/19 [History] Allergy/AdvReac Type Severity Reaction Status Date / Time Penicillins [PCN] Allergy Hives Verified 01/14/19 10:19 All Systems PM: A 10-system review of systems was performed and is negative for pertinent findings except as documented above in the HPI. - Constitutional Vitals: Temp Pulse Resp BP Pulse Ox 98.2 F 80 18 141/85 96 01/14/19 11:04 01/14/19 11:04 01/14/19 11:04 01/14/19 11:04 01/14/19 11:04 Exam: Pt is AAO x 3, in NAD HEENT: NC/AT, PERRL, skin cancer s/p biopsy on nose, right cheek, and left post- ear area Neck: Supple, no JVD, no LAD Lungs: CTA b/l Heart: S1S2, RRR Abd: Soft, nontender, BS present Ext: ROM wnl, no pedal edema Neuro: No focal deficit Internal Med - H&P Results - Labs CBC & Chem 7: 01/14/19 09:20 01/14/19 14:57 Labs: Short CBC 01/14/19 Range/Units 09:20 WBC 12.4 H (4.3-11.1) K/mcL Hgb 11.3 L (12.9-16.9) g/dL Hct 32.3 L (37.5-50.1) % Plt Count 257 (140-400) K/mcL Neutrophils # 10.4 H (1.6-8.9) K/mcL BMP 01/14/19 01/14/19 09:20 14:57 Sodium 120 L* 118 L* Potassium 3.8 Chloride 81 L Carbon Dioxide 35 H BUN 9 Creatinine 0.50 L Glucose 123 H Calcium 8.4 L Liver Function 01/14/19 Range/Units 09:20 Total Bilirubin 0.5 (0.3-1.0) mg/dL AST 21 (13-39) Units/L ALT 15 (7-52) Units/L Alkaline Phosphatase 53 (34-104) Units/L Albumin 3.2 L (3.5-5.7) g/dL - Impressions ITS Impressions Abdomen/Pelvis CT 01/14/19 12:21 IMPRESSION: Circumferential rectal wall thickening, with adjacent presacral soft tissue edema. There is also a small lymph nodes seen adjacent to the rectum measuring 7.4 mm. Differential considerations include proctitis, though a circumferential nonobstructive rectal mass cannot be excluded given patient's history of weight loss. Recommend correlation with colonoscopy. No other concerning process seen for neoplasm within the chest, abdomen or pelvis. Trace bilateral pleural effusions, with minimal emphysematous change. Minimal tree-in-bud like opacities noted at the right lung base posteriorly, as well as left basilar airspace disease and some areas of hyperdense material noted which can be seen in the setting of aspiration. Questionable mild bilateral hydronephrosis versus small parapelvic cysts. No obstructive calculi or mass. No ureteral dilation. D/ / David Og MD / David Og MD Interpreting Provider: David Og MD Chest CT 01/14/19 12:21 IMPRESSION: Circumferential rectal wall thickening, with adjacent presacral soft tissue edema. There is also a small lymph nodes seen adjacent to the rectum measuring 7.4 mm. Differential considerations include proctitis, though a circumferential nonobstructive rectal mass cannot be excluded given patient's history of weight loss. Recommend correlation with colonoscopy. No other concerning process seen for neoplasm within the chest, abdomen or pelvis. Trace bilateral pleural effusions, with minimal emphysematous change. Minimal tree-in-bud like opacities noted at the right lung base posteriorly, as well as left basilar airspace disease and some areas of hyperdense material noted which can be seen in the setting of aspiration. Questionable mild bilateral hydronephrosis versus small parapelvic cysts. No obstructive calculi or mass. No ureteral dilation. D/ / David Og MD / David Og MD Interpreting Provider: David Og MD - Assessment and Plan (1) Systolic CHF Current Visit: Yes Status: Acute Assessment and plan: Appears euvolemic at this point. Continue home medication beta pavithra and ARB. Patient is scheduled for AICD placement next week in cardiology office. Qualifiers: Heart failure chronicity: chronic Qualified Code(s): I50.22 - Chronic systolic (congestive) heart failure (2) Dysphagia Current Visit: Yes Status: Acute Assessment and plan: Patient complains of cough on eating. Etiology undetermined. - Swallow evaluation saw patient, recommended regular diet. However, patient does not want to eat. Plan for MBS tomorrow. - MR brain has been done, negative for stroke. Qualifiers: Dysphagia type: unspecified Qualified Code(s): R13.10 - Dysphagia, unspecified (3) DVT prophylaxis Current Visit: Yes Status: Acute Assessment and plan: Heparin subcutaneously (4) Hyponatremia Current Visit: Yes Status: Acute Assessment and plan: Persistent hyponatremia, etiology undetermined. Patient seems has chronic hyponatremia since 20 days ago, progressively getting worse. - CT chest shows no signs of lung cancer - Nephrology consult appreciated. Recommendations will be followed. - Give low rate 0.9 saline IV with consent of systolic CHF. - Place patient on fluid restriction - Closely monitor sodium level. Avoid fast correction. Goal of correction is not more than 8 mEq over 24 hours. (5) Weight loss Current Visit: Yes Status: Acute Assessment and plan: Etiology is undetermined. - CT abdomen shows Circumferential rectal wall thickening, will consult GI for further management. (6) CAD (coronary artery disease) Current Visit: No Status: Chronic Assessment and plan: Denies chest pain. Will continue home medications Qualifiers: Coronary Disease-Associated Artery/Lesion type: unspecified vessel or lesion type [place] vs. transplanted heart: unspecified whether [place] or transplanted heart Associated angina: angina presence unspecified Qualified Code(s): I25.10 - Atherosclerotic heart disease of [place] coronary artery without angina pectoris (7) Hypertension Current Visit: No Status: Chronic Assessment and plan: Continue home medications Qualifiers: Hypertension type: essential hypertension Qualified Code(s): I10 - Essential (primary) hypertension - Time Spent With Patient Total time spent is greater than 50% in coordination of care (as documented) at patient's floor/unit and/or counseling patient: 40 minutes Greater than 35 minutes
[2019-01-14 16:42] LABS: Hepatitis C Virus Antibody Nonreactive (Nonreactive)
[2019-01-14 16:43] LABS: HIV-1&2 Antibody & p24 Ag Nonreactive (Nonreactive)
[2019-01-14 16:45] LABS: Hepatitis A Antibody IgM Nonreactive (Nonreactive); Hepatitis B Core IgM Nonreactive (Nonreactive)
[2019-01-14] MEDS: *HR* Heparin 5,000 UNIT/ML VIAL SQ SCH (18:29)
--- NOTE | 2019-01-15 03:04 | Event Note ---
Date of Encounter: 01/14/19 Time of Encounter: 18:56 Alerted by pts. nurse [email or web address] Perry that the pts. NA was 117. Nurse instructed that the NA should not increase more than 8 mEq in 24 hours. Alerted at 23:42 that Na was now 118. Previous Na values on 01/14 were 120, 118, 117, and current of 118. 0.9 IV NS ordered @ 60 mls/hr. This order DCd and changed to rate of 75 mls/hr. Nurse instructed to continue monitoring pt. very closely and notify me immediately of any adverse changes. Cardiac monitoring already ordered. Nephrology, GI, and Nutrition all consulted. Will continue to monitor f/u labs closely.
[2019-01-15 03:35] LABS: Basophils % 0.2 %; Eosinophils # 0.1 K/mcL (0.0-0.6); Hematocrit 32.6 % (37.5-50.1); Hemoglobin 11.4 g/dL (12.9-16.9); Immature Granulocytes % 0.3 % (0-4); Lymphocytes # 0.4 K/mcL (0.6-4.6); Lymphocytes % 3.9 %; Mean Corpuscular Hemoglobin 29.8 pg (28.0-33.3); Mean Corpuscular Volume 85.3 fL (83.0-100.0); Monocytes # 0.7 K/mcL (0.0-1.3); Monocytes % 6.8 %; Neutrophils # 9.2 K/mcL (1.6-8.9); Platelet Count 249 K/mcL (140-400); Red Blood Count 3.82 M/mcL (4.19-5.50); Red Cell Distribution Width 12.9 % (11.5-14.5); Segmented Neutrophils % 87.8 %
[2019-01-15] MEDS ORDERED: D5% in Water 1,000 ML IVC PRN (03:43)
[2019-01-15] MEDS ORDERED: Dextrose Gel 15 GM/37.5 ML TUBE PO PRN ×2 (03:43)
[2019-01-15] MEDS ORDERED: *HR* Dextrose 50 % in Water (Syg) 50 ML SYRINGE IVP PRN (03:43)
[2019-01-15 03:56] LABS: BUN/Creatinine Ratio 21 (6-26); Blood Urea Nitrogen 8 mg/dL (8-23); Calcium 8.5 mg/dL (8.6-10.3); Carbon Dioxide 35 mEq/L (23-29); Chloride 83 mEq/L (98-107); Glucose 130 mg/dL (70-105); Magnesium 1.7 mg/dL (1.6-2.6); Osmolality,Calculated 248 (280-300); Sodium 119 mEq/L (136-145); eGFR For Non-African Americans > 60 (> 60)
[2019-01-15 04:10] LABS: Thyroid Stimulating Hormone 0.302 mcIU/mL (0.340-5.600)
[2019-01-15] MEDS: *HR* Heparin 5,000 UNIT/ML VIAL SQ SCH ×2 (06:11→18:01)
[2019-01-15] MEDS: 0.9 % Sodium Chloride 1,000 ML IVC SCH (07:39)
[2019-01-15] MEDS: Spironolactone 25 MG TABLET PO SCH (07:41)
[2019-01-15] MEDS: Aspirin Enteric Coated 81 MG Tablet PO SCH (07:41)
[2019-01-15] MEDS: Metoprolol XL (24 HR) Succ 50 MG TAB.ER.24H PO SCH (07:42)
[2019-01-15] MEDS: Finasteride 5 MG TABLET PO SCH (07:42)
[2019-01-15] MEDS ORDERED: hydroCHLOROthiazide 25 MG TABLET PO SCH (09:00)
--- NOTE | 2019-01-15 12:14 | Gastroenterology Consult Note ---
Date of Encounter: 01/15/19 Time of Encounter: 10:15 - Assessment and plan (1) Abnormal finding on imaging Current Visit: Yes Status: Acute Assessment and plan: CT A/P with circumferential rectal wall thickening with small lymph node adjacent to rectum measuring 7.4 mm. Plan for colonoscopy to evaluate, once sodium stable. (2) Weight loss Current Visit: Yes Status: Acute Assessment and plan: Plan for EGD and colonoscopy once sodium stable. (3) Hyponatremia Current Visit: Yes Status: Acute Assessment and plan: Management per primary team. - Time Spent With Patient Total time spent is greater than 50% in coordination of care (as documented) at patient's floor/unit and/or counseling patient: GI History of Present Illness - Data of Consult Patient: new to practice Consult date: 01/15/19 Requesting Physician: Eder Granger MD - Consult Narrative Reason for consult: Rectal mass on CT History of present illness: Mr. Cheema is a 73 year old male with PMHx of CHF, CAD, HLD, HTN, ID who was transferred from [facility] for hyponatremia. Patient was sleeping and difficult to arouse, information from chart review and patients daughter at bedside. CT head overnight showed no definite acute intracranial abnormality, but limited due to motion artifact. Patient was treated with 0.9% saline, however, his sodium level did not improve significantly. He was also given 3% saline but sodium level still low. Daughter reports that the patient has lost significant weight recently. We were consulted to evaluate a rectal mass. CT A/P with circumferential rectal wall thickening with small lymph node adjacent to rectum measuring 7.4 mm. Procedures: No record of scopes NSAIDs: ASA Anticoagulation: None Past Med Surg Social Fam HX - Past Medical History Medical history: CHF, coronary artery disease, hyperlipidemia, hypertension, myocardial infarction Psychiatric history: no psych history - Past Surgical History Surgical History: hip replacement Additional surgical history: Back surgery, left hip sx, prostate sx. - Social History Smoking Status: Former smoker Smokeless Tobacco Status: No Alcohol use: none Drug use: none - Family History Mother Living Status: Hx Family Cardiac Disorders: Yes (HTN) Hx Family Cancer: Yes (breast, skin face) Father Living Status: Hx Family Cancer: Yes (prostate) ROS unobtainable: due to mental status - Constitutional Vitals: Temp Pulse Resp BP Pulse Ox 97.3 F L 67 22 129/83 99 01/15/19 07:27 01/15/19 07:27 01/15/19 07:27 01/15/19 07:27 01/15/19 07:27 General appearance: Present: no acute distress - Head Head exam: Present: atraumatic, normocephalic - Eye Eye exam: Present: normal appearance, sclera anicteric - ENT ENT exam: Present: mucous membranes dry - Neck Neck exam general surgery: Present: normal inspection, trachea midline - Respiratory Respiratory exam: Present: CTAB. Absent: rales, rhonchi - Cardiovascular Cardiovascular exam: Present: RRR, +S1, +S2 - GI/Abdominal GI/Abdominal exam: Present: soft, no peritoneal signs. Absent: distended, firm, guarding, tenderness - Rectal Rectal exam: Present: deferred - Extremities Exam Extremities exam: Present: warm - Neurological Exam Neurological exam: Present: no focal deficits - Psychiatric Psychiatric exam: Present: normal affect, normal mood - Skin Skin exam: Present: dry, intact, normal color, warm Results - Labs CBC & Chem 7: 01/15/19 03:20 01/15/19 09:53 Labs: Last Result Calcium 8.5 mg/dL (8.6-10.3) L 01/15/19 03:20 Entire Visit Hgb 11.4 g/dL (12.9-16.9) L 01/15/19 03:20 Hct 32.6 % (37.5-50.1) L 01/15/19 03:20 Total Bilirubin 0.5 mg/dL (0.3-1.0) 01/14/19 09:20 AST 21 Units/L (13-39) 01/14/19 09:20 ALT 15 Units/L (7-52) 01/14/19 09:20 Ammonia 67 mcmol/L (16-53) H 01/15/19 06:10 - Impressions Impressions Abdomen/Pelvis CT 01/14/19 12:21 IMPRESSION: Circumferential rectal wall thickening, with adjacent presacral soft tissue edema. There is also a small lymph nodes seen adjacent to the rectum measuring 7.4 mm. Differential considerations include proctitis, though a circumferential nonobstructive rectal mass cannot be excluded given patient's history of weight loss. Recommend correlation with colonoscopy. No other concerning process seen for neoplasm within the chest, abdomen or pelvis. Trace bilateral pleural effusions, with minimal emphysematous change. Minimal tree-in-bud like opacities noted at the right lung base posteriorly, as well as left basilar airspace disease and some areas of hyperdense material noted which can be seen in the setting of aspiration. Questionable mild bilateral hydronephrosis versus small parapelvic cysts. No obstructive calculi or mass. No ureteral dilation. D/ / David Og MD / David Og MD Interpreting Provider: David Og MD Chest CT 01/14/19 12:21 IMPRESSION: Circumferential rectal wall thickening, with adjacent presacral soft tissue edema. There is also a small lymph nodes seen adjacent to the rectum measuring 7.4 mm. Differential considerations include proctitis, though a circumferential nonobstructive rectal mass cannot be excluded given patient's history of weight loss. Recommend correlation with colonoscopy. No other concerning process seen for neoplasm within the chest, abdomen or pelvis. Trace bilateral pleural effusions, with minimal emphysematous change. Minimal tree-in-bud like opacities noted at the right lung base posteriorly, as well as left basilar airspace disease and some areas of hyperdense material noted which can be seen in the setting of aspiration. Questionable mild bilateral hydronephrosis versus small parapelvic cysts. No obstructive calculi or mass. No ureteral dilation. D/ / David Og MD / David Og MD Interpreting Provider: David Og MD Brain MRI 01/14/19 12:23 IMPRESSION: 1. No acute infarct or acute intracranial process identified. 2. Mild chronic small vessel ischemic changes. D/ / Arcenio Wray MD / Arcenio Wray MD Interpreting Provider: Arcenio Wray MD Head CT 01/15/19 03:37 IMPRESSION: Severely limited exam with no definite acute intracranial abnormality. Consider repeat imaging once the patient is able to remain still. D/ / Gal Carrizales MD / Gal Carrizales MD Interpreting Provider: Gal Carrizales MD Consult Discharge Plan - Plan Referrals: Michael Gonzalez MD [Partnered Physician] - (Sent web request on 01-15-19 @ 0090) Mika Stokes MD [Primary Care Provider] - 01/27/19 8:30 am
--- NOTE | 2019-01-15 12:35 | Nephrology Progress Note ---
Date of Encounter: 01/15/19 Time of Encounter: 10:30 - Assessment and Plan (1) Hyponatremia Current Visit: Yes Status: Acute Ongoing and minimally changed. CT abd demonstrated potential b/l hydronephrosis, so I recommend placing a drew catheter. Cont to follow the frequent PNa. He is asymptomatic and would not need 3% saline. His Uosmo is elevated and so if his PNa does not improve, then I would stop the 0.9% saline and start Tolvaptan 15mg po x1. His family was present and I updated them of these recommendations this afternoon He remains complex and very ill and has required a high degree of MDM and E/M. My colleague Dr. Andrade will be on-call starting tomorrow. I'll provide a thorough sign-out to her. (2) Bilateral hydronephrosis Current Visit: Yes Status: Acute See above. Noted on CT abd. (3) Weight loss Current Visit: Yes Status: Acute (4) BPH (benign prostatic hyperplasia) Current Visit: No Status: Chronic Qualifiers: Lower urinary tract symptom detail: unspecified Qualified Code(s): N40.1 - Benign prostatic hyperplasia with lower urinary tract symptoms (5) Hypertension Current Visit: No Status: Chronic Qualifiers: Hypertension type: essential hypertension Qualified Code(s): I10 - Essential (primary) hypertension (6) Ischemic cardiomyopathy Current Visit: No Status: Chronic Subjective Principal diagnosis: Hyponatremia Interval history: Pt was s/e in his 2N room with his family at beside (grandson grand daught in law). He was not able to communicate or stay wake during the exam, which limited the subjective portion of the note Objective - Vital Signs Vital signs: Vital Signs Temp Pulse Resp BP Pulse Ox 01/15/19 11:54 97.6 F 65 18 140/78 100 01/15/19 07:27 97.3 F L 67 22 129/83 99 01/14/19 23:11 98 F 76 19 156/86 98 01/14/19 19:15 98.0 F 73 18 150/90 95 01/14/19 17:08 98.0 F 76 18 138/90 95 Intake and Output 01/14/19 01/15/19 01/15/19 23:59 07:59 15:59 Intake Total 240 / 240 637 / 637 0 / 0 Output Total 200 / 200 Balance 40 / 40 637 / 637 0 / 0 Intake: IV Fluids 637 / 637 0.9 % Sodium Chloride 1,000 ML 637 / 637 @ 60 mls/hr IVC .[id number] [facility] Rx #:[id number] Oral 240 / 240 0 / 0 Output: Urine 200 / 200 Other: Meal Dinner NPO Percent of Meal Consumed 65% 0% # Urine Diapers 1 Blood Glucose* 106 111 - General Appearance Exam: General appearance: appears started age, cachectic, fatigue, frail EENT: ATNC, mucous membranes dry Neck: no JVD, supple Respiratory: clear Cardiology: no edema, regular rate, regular rhythm, normal S1, normal S2 Gastrointestinal: normoactive bowel sounds, no guarding, no organomegaly Additional Comments: thin abd Integumentary: warm and dry Neurologic: confused, disoriented (and falls alseep easily) Musculoskeletal: no deformities, no cyanosis, no clubbing Psychiatric: cooperative when he awoke to tactile stimuli - Lab 01/19/19 04:10 01/19/19 04:10 Most recent lab results Calcium 8.5 mg/dL (8.6-10.3) L 01/15/19 03:20 Magnesium 1.7 mg/dL (1.6-2.6) 01/15/19 03:20 Urine Creatinine 49 mg/dL 01/14/19 14:45 Urine Sodium 69.4 mEq/L 01/14/19 14:45 Consult Discharge Plan - Plan Referrals: Michael Gonzalez MD [Partnered Physician] - (Sent web request on 01-15-19 @ 2647) Mika Stokes MD [Primary Care Provider] - 01/27/19 8:30 am
--- NOTE | 2019-01-15 12:51 | Internal Med Progress Note ---
Hospitalist Progress Note - Encounter Date of Encounter: 01/15/19 Time of Encounter: 12:46 - Subjective Interval History: I have seen and evaluated the patient at bedside. Patient somnolent but arousable to command. - Exam Vitals: Temp Pulse Resp BP Pulse Ox 97.6 F 65 18 140/78 100 01/15/19 11:54 01/15/19 11:54 01/15/19 11:54 01/15/19 11:54 01/15/19 11:54 Exam: Vitals: reviewed General: Alert and oriented x2. Somnolent HEENT: Dry mucus membrane, EOM, pupils equal, round and reactive. Cardiovascular: RRR, normal S1 & S2, no rubs, murmurs or gallops. Lungs: CTA, no wheezes or crackles. Abdomen: Soft, non-tender, no rigidity. Extremities: No edema Neurological: unable to assess due to somnolence. Rest of the physical exam is non contributory - Assessment and Plan (1) Hyponatremia Current Visit: Yes Status: Acute Assessment and Plan: discussed with pulmonology critical care. recommended to increase the fluid to 150ml/hr x1 hour and repeat the BMP at 2pm. Nurse has been informed about the plan. neuro checks Q1HR. Nephrology recommendations appreciated T3,T4 ordered, THS low fluids restriction to 1.5 litters a day. 12 lead EKG ordered. (2) CAD (coronary artery disease) Current Visit: No Status: Chronic Assessment and Plan: patient on aspirin 81mg/PO daily (3) Hypertension Current Visit: No Status: Chronic Assessment and Plan: BP well controlled on losartan and metoprolol/ (4) Weight loss Current Visit: Yes Status: Acute (5) Systolic CHF Current Visit: Yes Status: Acute Assessment and Plan: patient is euvolemic. diuretics have been held due to hyponatremia. fluids restriction to 1.5 litter a day daily weight and strict intake and output. (6) Dysphagia Current Visit: Yes Status: Acute Assessment and Plan: Barrium swallow evaluation has been ordered. (7) Altered mental status Current Visit: Yes Status: Acute Assessment and Plan: possible due to severe hyponatremia. patient found to have elevated ammonia level. started on lactulose 20gm/PO BID. EEG ordered to r/o sub-clinical seizures. (8) Rectal mass Current Visit: Yes Status: Suspected Assessment and Plan: CT abdomen with finding of a possible rectal mass GI has been consulted. recommendations appreciated (9) BPH (benign prostatic hyperplasia) Current Visit: No Status: Chronic Assessment and Plan: continue finasteride 5mg/PO daily (10) Hyperlipidemia Current Visit: No Status: Chronic Assessment and Plan: on statin DVT Prophylaxis: On heparin SubQ - Summary of Assessment and Plan Summary of Assessment and Plan: Patient to remain in the hospital due to severe hyponatremia - Time Spent with Patient Total time spent is greater than 50% in coordination of care (as documented) at patient's floor/unit and/or counseling patient: Greater than 35 minutes (45) Plan of Care Discussed with: nurse (and the patient's family at bedside.) Internal Medicine: Result - Labs CBC & Chem 7: 01/15/19 03:20 01/15/19 09:53 Labs: Short CBC 01/15/19 Range/Units 03:20 WBC 10.5 (4.3-11.1) K/mcL Hgb 11.4 L (12.9-16.9) g/dL Hct 32.6 L (37.5-50.1) % Plt Count 249 (140-400) K/mcL Neutrophils # 9.2 H (1.6-8.9) K/mcL BMP 01/14/19 01/14/19 01/14/19 14:57 18:10 22:53 Sodium 118 L* 117 L* 118 L* Potassium Chloride Carbon Dioxide BUN Creatinine Glucose Calcium 01/15/19 01/15/19 01/15/19 03:20 03:20 06:10 Sodium 119 L* TNP 120 L* Potassium 4.0 Chloride 83 L Carbon Dioxide 35 H BUN 8 Creatinine 0.39 L Glucose 130 H Calcium 8.5 L 01/15/19 09:53 Sodium 120 L* Potassium Chloride Carbon Dioxide BUN Creatinine Glucose Calcium - Impressions Impressions Abdomen/Pelvis CT 01/14/19 12:21 IMPRESSION: Circumferential rectal wall thickening, with adjacent presacral soft tissue edema. There is also a small lymph nodes seen adjacent to the rectum measuring 7.4 mm. Differential considerations include proctitis, though a circumferential nonobstructive rectal mass cannot be excluded given patient's history of weight loss. Recommend correlation with colonoscopy. No other concerning process seen for neoplasm within the chest, abdomen or pelvis. Trace bilateral pleural effusions, with minimal emphysematous change. Minimal tree-in-bud like opacities noted at the right lung base posteriorly, as well as left basilar airspace disease and some areas of hyperdense material noted which can be seen in the setting of aspiration. Questionable mild bilateral hydronephrosis versus small parapelvic cysts. No obstructive calculi or mass. No ureteral dilation. D/ / David Og MD / David Og MD Interpreting Provider: David Og MD Chest CT 01/14/19 12:21 IMPRESSION: Circumferential rectal wall thickening, with adjacent presacral soft tissue edema. There is also a small lymph nodes seen adjacent to the rectum measuring 7.4 mm. Differential considerations include proctitis, though a circumferential nonobstructive rectal mass cannot be excluded given patient's history of weight loss. Recommend correlation with colonoscopy. No other concerning process seen for neoplasm within the chest, abdomen or pelvis. Trace bilateral pleural effusions, with minimal emphysematous change. Minimal tree-in-bud like opacities noted at the right lung base posteriorly, as well as left basilar airspace disease and some areas of hyperdense material noted which can be seen in the setting of aspiration. Questionable mild bilateral hydronephrosis versus small parapelvic cysts. No obstructive calculi or mass. No ureteral dilation. D/ / David Og MD / David Og MD Interpreting Provider: David Og MD Brain MRI 01/14/19 12:23 IMPRESSION: 1. No acute infarct or acute intracranial process identified. 2. Mild chronic small vessel ischemic changes. D/ / Arcenio Wray MD / Arcenio Wray MD Interpreting Provider: Arcenio Wray MD Head CT 01/15/19 03:37 IMPRESSION: Severely limited exam with no definite acute intracranial abnormality. Consider repeat imaging once the patient is able to remain still. D/ / Gal Carrizales MD / Gal Carrizales MD Interpreting Provider: Gal Carrizales MD Consult Discharge Plan - Plan Referrals: Michael Gonzalez MD [Partnered Physician] - (Sent web request on 01-15-19 @ 0650) Mika Stokes MD [Primary Care Provider] - 01/27/19 8:30 am (2) CAD (coronary artery disease) Qualifiers: Coronary Disease-Associated Artery/Lesion type: unspecified vessel or lesion type [place] vs. transplanted heart: unspecified whether [place] or transplanted heart Associated angina: angina presence unspecified Qualified Code(s): I25.10 - Atherosclerotic heart disease of [place] coronary artery without angina pectoris (3) Hypertension Qualifiers: Hypertension type: essential hypertension Qualified Code(s): I10 - Essential (primary) hypertension (5) Systolic CHF Qualifiers: Heart failure chronicity: chronic Qualified Code(s): I50.22 - Chronic systolic (congestive) heart failure (6) Dysphagia Qualifiers: Dysphagia type: unspecified Qualified Code(s): R13.10 - Dysphagia, unspecified (7) Altered mental status Qualifiers: Altered mental status type: somnolence Qualified Code(s): R40.0 - Somnolence (9) BPH (benign prostatic hyperplasia) Qualifiers: Lower urinary tract symptom detail: unspecified (10) Hyperlipidemia Qualifiers: Hyperlipidemia type: unspecified Qualified Code(s): E78.5 - Hyperlipidemia, unspecified
[2019-01-15] MEDS ORDERED: E-Z-HD (BARIUM SULF) SUSPENSION PO ONE (15:03)
[2019-01-15] MEDS ORDERED: [UNRECOGNIZED DRUG - OTHER] PO ONE (15:03)
[2019-01-15] MEDS ORDERED: BARIUM SULFATE PO ONE (15:03)
[2019-01-15] MEDS ORDERED: Tolvaptan 15 MG TABLET PO ONE (15:57)
[2019-01-15] MEDS: Lactulose Oral Soln 20 GM/30 ML UDC PO SCH ×2 (16:20→20:15)
--- NOTE | 2019-01-15 17:43 | Pulmonology Consult Note ---
Date of Encounter: 01/15/19 Time of Encounter: 13:00 Assessment and Plan (1) Encephalopathy Current Visit: Yes Status: Acute Patient mental status improving most likely because of the current sodium status for developing or toxic/metabolic encephalopathy no focal neurological deficit no evidence of cerebrovascular accident very low likelihood for subclinical seizures or any other intracranial infections. The patient mental status not improving consider EEG and neurology consult. Critical care will sign off at this time please call with questions.. (2) Ischemic cardiomyopathy Current Visit: No Status: Chronic Patient has systolic CHF acceptable oxygenation and ventilation (3) Hyponatremia Current Visit: Yes Status: Acute Review of labs most likely the cause of hyponatremia is hypovolemia agree with t he volume resuscitation with close sodium monitoring the correct nor more than 10 mEq within 24 hours. (4) Rectal mass Current Visit: Yes Status: Suspected Patient has nonobstructing rectal mass concerning for malignancy please consider consulting GI for further workup. History of Present Illness Consult date: 01/15/19 Requesting physician: Eder Granger Reason for consult: other (altered mental status ) Chief complaint: altered mental status History of present illness: 74-year-old male with past medical history consistent with systolic heart failure was admitted to [facility] with altered mental status and hyponatremia. Critical care was consult 5 hours altered mental status and hyponatremia patient on interview was able to follow commands and answer questions denies any chest pain chest tightness denies any cough or sputum production denies any fever or chills patient had some loss of weight and appetite patient had a whole-body imaging which showed some rectal thickening concerning for nonobstructive the rectal malignancy or benign proctitis critical care consultation for evaluation of hyponatremia and altered mental status. Past Med Surg Social Fam HX - Past Medical History Medical history: CHF, coronary artery disease, hyperlipidemia, hypertension, myocardial infarction Psychiatric history: no psych history - Past Surgical History Surgical History: hip replacement Additional surgical history: Back surgery, left hip sx, prostate sx. - Social History Smoking Status: Former smoker Smokeless Tobacco Status: No Alcohol use: none Drug use: none - Family History Mother Living Status: Hx Family Cardiac Disorders: Yes (HTN) Hx Family Cancer: Yes (breast, skin face) Father Living Status: Hx Family Cancer: Yes (prostate) Medications and Allergies Atorvastatin [Lipitor] 40 mg PO HS 05/13/17 [History] Finasteride [Proscar] 5 mg PO DAILY 05/13/17 [History] Losartan/Hydrochlorothiazide [Hyzaar 100-25 Tablet] 1 each PO DAILY 05/13/17 [History] Metoprolol XL (24 HR) Succ [Toprol Xl] 50 mg PO DAILY 05/13/17 [History] Spironolactone [Aldactone] 25 mg PO DAILY 05/13/17 [History] Acetaminophen [Tylenol] 1,000 mg PO DAILY 01/14/19 [History] Aspirin [Lo-Dose Aspirin EC] 81 mg PO DAILY 01/14/19 [History] Melatonin [Melatin] 3 mg PO HS PRN 01/14/19 [History] Allergy/AdvReac Type Severity Reaction Status Date / Time Penicillins [PCN] Allergy Hives Verified 01/14/19 10:19 All Systems: The remainder of the systems were reviewed and are negative Physical Examination Vital Signs: Vital Signs, Last 4 Hours Temp Pulse Resp BP Pulse Ox 01/15/19 16:06 97.6 F 74 18 152/73 99 Auscultation: bilateral: diminished breath sounds (basilar diminshed breadth sounds ) Results - Laboratory Findings CBC and BMP: 01/15/19 03:20 01/15/19 18:08 Abnormal lab findings: Abnormal lab results RBC 3.82 M/mcL (4.19-5.50) L 01/15/19 03:20 Hgb 11.4 g/dL (12.9-16.9) L 01/15/19 03:20 Hct 32.6 % (37.5-50.1) L 01/15/19 03:20 MPV 9.0 fL (9.4-12.4) L 01/15/19 03:20 Neutrophils # 9.2 K/mcL (1.6-8.9) H 01/15/19 03:20 Lymphocytes # 0.4 K/mcL (0.6-4.6) L 01/15/19 03:20 Sodium 122 mEq/L (136-145) L 01/15/19 14:08 Chloride 83 mEq/L (98-107) L 01/15/19 03:20 Carbon Dioxide 35 mEq/L (23-29) H 01/15/19 03:20 Creatinine 0.39 mg/dL (0.70-1.30) L 01/15/19 03:20 Glucose 130 mg/dL (70-105) H 01/15/19 03:20 POC Glucose 106 mg/dL (70-99) H 01/15/19 07:34 Calculated Osmolality 248 (280-300) L 01/15/19 03:20 Calcium 8.5 mg/dL (8.6-10.3) L 01/15/19 03:20 Ammonia 67 mcmol/L (16-53) H 01/15/19 06:10 B-Natriuretic Peptide 336 pg/mL (Less than 100) H 01/15/19 03:20 Serum Total Protein 5.3 g/dL (6.4-8.9) L 01/14/19 09:20 Albumin 3.2 g/dL (3.5-5.7) L 01/14/19 09:20 Globulin 2.1 g/dL (2.4-3.5) L 01/14/19 09:20 TSH 0.302 mcIU/mL (0.340-5.600) L 01/15/19 03:20 - Clinical Findings Intake & Output: Intake & Output 01/15/19 01/15/19 01/15/19 07:59 15:59 23:59 Intake Total 637 / 637 0 / 0 Output Total 350 / 350 350 / 350 Balance 637 / 637 -350 / -350 -350 / -350 Consult Discharge Plan - Plan Referrals: Michael Gonzalez MD [Partnered Physician] - (Sent web request on 01-15-19 @ 4546) Mika Stokes MD [Primary Care Provider] - 01/27/19 8:30 am
[2019-01-15] MEDS ORDERED: Lactulose 200 GM/300 ML (for enema) RC SCH (21:00)
[2019-01-15] MEDS: Lactulose 200 GM, Sodium Chloride IRRigation 700 ML RC SCH (22:48)
[2019-01-16 01:31] LABS: Basophils % 0.2 %; Eosinophils % 0.1 %; Hematocrit 38.8 % (37.5-50.1); Hemoglobin 12.9 g/dL (12.9-16.9); Immature Granulocytes % 0.5 % (0-4); Lymphocytes # 0.3 K/mcL (0.6-4.6); Lymphocytes % 2.3 %; Mean Corpuscular HGB Conc 33.2 g/dL (31.6-35.5); Mean Corpuscular Hemoglobin 29.3 pg (28.0-33.3); Mean Platelet Volume 8.9 fL (9.4-12.4); Monocytes # 0.8 K/mcL (0.0-1.3); Neutrophils # 11.6 K/mcL (1.6-8.9); Platelet Count 283 K/mcL (140-400); Red Blood Count 4.41 M/mcL (4.19-5.50); Red Cell Distribution Width 12.6 % (11.5-14.5); Segmented Neutrophils % 90.9 %
[2019-01-16 01:48] LABS: BUN/Creatinine Ratio 22 (6-26); Blood Urea Nitrogen 11 mg/dL (8-23); Carbon Dioxide 38 mEq/L (23-29); Chloride 85 mEq/L (98-107); Glucose 161 mg/dL (70-105); Magnesium 1.9 mg/dL (1.6-2.6); Osmolality,Calculated 259 (280-300); Phosphorous 3.8 mg/dL (2.7-4.5); Potassium 3.9 mEq/L (3.5-5.1); Sodium 123 mEq/L (136-145); eGFR For Non-African Americans > 60 (> 60)
[2019-01-16 02:09] LABS: Triiodothyronine (T3) Total 0.42 ng/mL (0.87-1.78)
[2019-01-16] MEDS: *HR* Heparin 5,000 UNIT/ML VIAL SQ SCH ×2 (05:20→18:19)
--- NOTE | 2019-01-16 06:14 | Event Note ---
Date of Encounter: 01/15/19 Time of Encounter: 20:13 Alerted by patient's nurse ABDIFATAH Perry that patient was not currently sufficiently arousable to take his ordered 21:00 by mouth lactulose nothing by mouth sodium tablet. Patient's sodium at 21:00 121. Notified by patient's nurse that 22:00 sodium is 122. No additional every 4 hours checks ordered. Nurse instructed to order four more every 4 hours Na checks. Nurse instructed to convert by mouth lactulose order to rectal. Patient received rectal lactulose at 00:52. Temp now 94.2 rectally. Patient reported as tachypneic with RR 32, SPO2 96% on 2 L, HR 76, BP 120/56. Stat lactic ordered as well as radiant warming. Nurse instructed to continue monitoring patient very closely and alert me immediately of any adverse changes.
[2019-01-16] MEDS: 0.9 % Sodium Chloride 1,000 ML IVC SCH (07:32)
[2019-01-16] MEDS: Metoprolol XL (24 HR) Succ 50 MG TAB.ER.24H PO SCH (08:24)
[2019-01-16] MEDS: Finasteride 5 MG TABLET PO SCH (08:24)
[2019-01-16] MEDS: Spironolactone 25 MG TABLET PO SCH (08:24)
[2019-01-16] MEDS: Aspirin Enteric Coated 81 MG Tablet PO SCH (08:24)
[2019-01-16] MEDS ORDERED: *HR* Etomidate 40 MG/20 ML VIAL IVP ONE (08:29)
[2019-01-16] MEDS ORDERED: *HR* Succinylcholine 200 MG/10 ML VIAL IVP ONE (08:29)
[2019-01-16] MEDS: Lactulose 200 GM, Sodium Chloride IRRigation 700 ML RC SCH (10:24)
[2019-01-16] MEDS ORDERED: Lactulose Oral Soln 20 GM/30 ML UDC PO SCH (10:30)
--- NOTE | 2019-01-16 11:00 | EEG/EMG/Oth Biometrics Report ---
EEG Procedure Report Date of procedure: 01/16/19 EEG Procedure: Routine EEG Procedure Note: This EEG was acquired with standard international 10-20 system with EKG recording. The background EEG activity was characterized by the presence of posterior dominant alpha rhythm with the best frequency up to 10 Hz. The background activity was reactive to eye openings. Sleep stages were characterized by the presence of background fragmentation, vertex waves, K complexes, and sleep spindles. There are no electrographic seizures identified during this tracing. There are no epileptiform discharges and focal slowing noted during this recording. Photic stimulation produced no abnormalities. Hyperventilation procedure was not performed. EKG tracing showed normal sinus rhythm. Impression: This is essentially a normal awake and asleep EEG. Clinical Correlation: Normal EEGs, however, do not exclude epilepsy. Clinical correlation advised.
[2019-01-16] MEDS ORDERED: Thiamine (B-1) 100 MG in D5% in Water 50 ML IVPB SCH (11:15)
[2019-01-16] MEDS ORDERED: Folic Acid 1 MG in D5% in Water 50 ML IVPB STA (11:15)
--- NOTE | 2019-01-16 11:27 | Internal Med Progress Note ---
Hospitalist Progress Note - Encounter Date of Encounter: 01/16/19 Time of Encounter: 08:00 - Subjective Interval History: Patient was seen and examined at bedside. Family at bedside including daughter and granddaughter. I discussed all imaging studies and labs with the family I discussed the plan of care and they are in agreement. They do report that his mental status has progressively worsened since admission. They are inquiring about his worsening mental status even though his hyponatremia is improving. Answered all questions. Currently patient is unable to provide any information due to mental status. Could not perform review of systems secondary to mental status. As per family at bedside he was able to tolerate by mouth diet yesterday however while at bedside the nurse tried to perform a swallow study which be failed. Discussed with the family and we will get a neurology consult and repeat CAT scan of the head along with chest x-ray and urine analysis to ensure that there is no infection. I discussed that I will empirically start him on antibiotics as the CT chest on admission showed possible aspiration causing mild leukocytosis and hypothermia. - Exam Vitals: Temp Pulse Resp BP Pulse Ox 97.2 F L 82 18 132/66 95 01/16/19 08:14 01/16/19 08:14 01/16/19 08:14 01/16/19 08:14 01/16/19 08:14 Exam: General: Patient is alert, confused, oriented x 1 ( year) Head: atraumatic, normocephalic, Eye: anicteric, EOMI ENT: mucous membranes moist, normal external ear exam Neck: normal inspection, supple, no pain on flexion Chest: normal inspection, symmetric chest rise Respiratory: Good respiratory effort. decreased breath sounds bilaterally, occasional crackles Cardiovascular: Regular rate and rhythm. s1 and s2 No clicks, rubs, gallops, or murmors. Abdomen: Bowel sounds present normoactive x-4 quadrants. Abdomen is soft, nondistended. no Epigastric tenderness. No guarding or rebound. No organomegaly noted, obese musculoskeletal: Spontaneously moving all extremities. does not follow commands, wiggles toes, has right sided foot drop at baseline. Skin: warm, dry, intact. Neuro: Alert and oriented x self and year but not place or person, when asked to move his extremities he reports that he cannot hoever he wiggles his toes. speech is comprehendible but slow, strength is 4/5 in bilateral upper extremities, i cannot assess strength in donald lower extremities as he is not following commands. no nystagmus noted - Assessment and Plan (1) Encephalopathy Current Visit: Yes Status: Acute Assessment and Plan: Acute encephalopathy most likely secondary to hyponatremia versus infection ruled out stroke on admission Mental status remains poor despite improvement in hyponatremia- sodium level 125 (nephrology on board) MRI of the brain without any acute abnormalities UA ordered ammonia mildly elevated - will repeat level today B12 ordered CT chest with questionable aspiration pneumoniastarted on ceftriaxone and metronidazole Neurology consulted as mental status is not improving despite improvement in hyponatremia. EEG- Normal EEGs, however, do not exclude epilepsy. Clinical correlation advised. Continue with neuro checks every 3 hours Strict aspiration, fall, seizure precautions. Nothing by mouth We will repeat CT head today If mental status does not improve will consider LP thiamine and folic acid MRI head: IMPRESSION: 1. No acute infarct or acute intracranial process identified. 2. Mild chronic small vessel ischemic changes. (2) Hyponatremia Current Visit: Yes Status: Acute Assessment and Plan: hyponatremia improving now 125 s/p tolvaptan on 01/15 Urine osmolality 499 cortisol 20.2 TSH 0.302 T4 4.70 nephrology onboard- will follow further recommendations strict I/O continue to monitor BMP Q4H Avoid correction of hyponatremia- goal of increased 8-10 meq over 24 hours Avoid diuretics and SSRIs Lipid panel- TGD in AM (3) Aspiration pneumonia Current Visit: Yes Status: Acute Assessment and Plan: CT chest with right lung and left basilar airspace disease with some hyperdense areas suggestive of aspiration Started on ceftriaxone and metronidazole Urine antigens Sputum cultures Strict aspiration precautions Nothing by mouth We will consider speech therapy once mental status is improved. CXR ordered Bcx ordered CT chest: Trace bilateral pleural effusions, with minimal emphysematous change. Minimal tree-in-bud like opacities noted at the right lung base posteriorly, as well as left basilar airspace disease and some areas of hyperdense material noted which can be seen in the setting of aspiration. (4) Rectal mass Current Visit: Yes Status: Suspected Assessment and Plan: CT abdomen with finding of a possible rectal mass GI on board for colonoscopy once acute issues have been resolved. (5) Bilateral hydronephrosis Current Visit: Yes Status: Acute Assessment and Plan: s/p drew insertion will get renal US to ensure that its resolved UA is pending Ct A/P Questionable mild bilateral hydronephrosis versus small parapelvic cysts. No obstructive calculi or mass. No ureteral dilation. (6) CAD (coronary artery disease) Current Visit: No Status: Chronic Assessment and Plan: continue with home medications if not CI (7) Hypertension Current Visit: No Status: Chronic Assessment and Plan: continue with metoprolol and losartan (8) Hyperlipidemia Current Visit: No Status: Chronic Assessment and Plan: on statin lipid panel in AM (9) BPH (benign prostatic hyperplasia) Current Visit: No Status: Chronic Assessment and Plan: continue finasteride 5mg/PO daily drew inserted (10) Weight loss Current Visit: Yes Status: Acute Assessment and Plan: Etiology is undetermined. - CT abdomen shows Circumferential rectal wall thickening- GI on board for possible colonoscopy once mental status improves (11) Systolic CHF Current Visit: Yes Status: Acute Assessment and Plan: patient is euvolemic. diuretics have been held due to hyponatremia. fluids restriction to 1.5 litter a day daily weight and strict intake and output. is to have device placed by cardiology on 01/22 (12) Dysphagia Current Visit: Yes Status: Acute Assessment and Plan: secondary to mental status NPO for now strict aspiration precautions. (13) DVT prophylaxis Current Visit: Yes Status: Acute Assessment and Plan: Heparin subcutaneously - Time Spent with Patient Total time spent is greater than 50% in coordination of care (as documented) at patient's floor/unit and/or counseling patient: Internal Medicine: Result - Labs CBC & Chem 7: 01/16/19 01:14 01/16/19 09:51 Labs: Short CBC 01/16/19 Range/Units 01:14 WBC 12.8 H (4.3-11.1) K/mcL Hgb 12.9 D (12.9-16.9) g/dL Hct 38.8 (37.5-50.1) % Plt Count 283 (140-400) K/mcL Neutrophils # 11.6 H (1.6-8.9) K/mcL BMP 01/15/19 01/15/19 01/15/19 14:08 18:08 22:07 Sodium 122 L 121 L 122 L Potassium Chloride Carbon Dioxide BUN Creatinine Glucose Calcium 01/16/19 01/16/19 01/16/19 01:14 05:57 09:51 Sodium 123 L 123 L 125 L Potassium 3.9 Chloride 85 L Carbon Dioxide 38 H BUN 11 Creatinine 0.51 L Glucose 161 H Calcium 9.0 - Impressions Impressions Videofluoroscopic Swallow 01/15/19 00:01 IMPRESSION: Minimal laryngeal penetration with thin liquids, no evidence for aspiration. Please see separate speech pathology report for full discussion of findings and recommendations. D/ / Emanuel Chavez MD / Emanuel Chavez MD Interpreting Provider: Emanuel Chavez MD Consult Discharge Plan - Plan Referrals: Michael Gonzalez MD [Partnered Physician] - (Sent web request on 01-15-19 @ [phone]) Mika Stokes MD [Primary Care Provider] - 01/27/19 8:30 am __ (3) Aspiration pneumonia Qualifiers: Aspiration pneumonia type: unspecified Laterality: right Lung location: lower lobe of lung Qualified Code(s): J69.0 - Pneumonitis due to inhalation of food and vomit (6) CAD (coronary artery disease) Qualifiers: Coronary Disease-Associated Artery/Lesion type: unspecified vessel or lesion type [place] vs. transplanted heart: unspecified whether [place] or transplanted heart Associated angina: angina presence unspecified Qualified Code(s): I25.10 - Atherosclerotic heart disease of [place] coronary artery without angina pectoris (7) Hypertension Qualifiers: Hypertension type: essential hypertension Qualified Code(s): I10 - Essential (primary) hypertension (8) Hyperlipidemia Qualifiers: Hyperlipidemia type: unspecified Qualified Code(s): E78.5 - Hyperlipidemia, unspecified (9) BPH (benign prostatic hyperplasia) Qualifiers: Lower urinary tract symptom detail: unspecified (11) Systolic CHF Qualifiers: Heart failure chronicity: chronic Qualified Code(s): I50.22 - Chronic systolic (congestive) heart failure (12) Dysphagia Qualifiers: Dysphagia type: unspecified Qualified Code(s): R13.10 - Dysphagia, u nspecified
[2019-01-16] MEDS ORDERED: cefTRIAXone 2,000 MG in 0.9 % Sodium Chloride Mini Bag 100 ML IVPB SCH (12:00)
[2019-01-16] MEDS ORDERED: Isovue-370 500 ML BOTTLE IVP ONE (12:06)
[2019-01-16 12:07] LABS: ABG Base Excess 8 mEq/L (-2 to 3); ABG HCO3 39 mEq/L (21-27); ABG Oxygen Saturation 83 % (95-98); ABG PCO2 97 mmHg (35-45); ABG PH 7.21 pH Units (7.32-7.45); ABG PO2 60 mmHg (85-104); ABG TCO2 42 mEq/L (20-26)
--- NOTE | 2019-01-16 12:26 | Neurology - Consult Note ---
Addendum entered and electronically signed by Manjinder Smith 01/16/19 13:31: respiratory acidosis, with hypoxic and hypercapneic respiratory failure Original Note: <SmithManjinder Dyer - Last Filed: 01/16/19 12:14> Date of Encounter: 01/16/19 Time of Encounter: 12:14 Assessment and Plan (1) Encephalopathy Current Visit: Yes Status: Acute Patient admitted with hyponatremia of unknown etiology. Has suspected aspiration PNA and and is encephalopathic. neuro c/s d/t AMS, lethargy and weakness. CT head Repeat CT head pending MRI-no acute abnormality; do not feel need for repeat MRI at this juncture CT chest with questionable aspiration PNA appearance Acute respiratory distress per my exam this afternoon, decompensating. d/w Primary team; ABG and CTA chest recommended; CTA chest pending Clinically the patient has generalized weakness all over but does not have any focal or lateralizing deficits and there are no meningeal signs. We do not believe at this time his presentation is d/t TOOLROOM KEEPER infection but most likely from a multifactorial encephalopathy. He was in acute respiratory distress and decompensating on my exam; ABG ordered and found hypercapnea with CO2 92. Encephalopathy is multifactorial with suspected aspiration PNA, hypercapneic respiratory failure, and metabolic derangements. Do not feel that his current presentation is of a primary neurological cause. Continue medical and supportive care. History of Present Illness Chief complaint: AMS, encephalopathy HPI: Mr. Cheema is a 73 year old male with a PMH of CHF, CAD, HLD, HTN, NM who presents from [facility] for hyponatremia, cough and concerns for aspiration PNA. He is encephalopathic since admission with waxing and waning mental state. Hyponatremia was corrected but encephaloptic state persists. Neurology has been consulted to assist with w/u for worsening encephalopathy despite improving hyponatremia. He is confused today and the HPI was obtained from the family at bedside. They report that 48 hours ago he began to be more lethargic and confufsed. Further, is hypersomnolent and sleeping for 12-16 hours. His baseline status is independent and A&Ox3. They deny any new facial droop, slurred speech, or noticing any unilateral weakness. They report that he appears very weak overall and appears to be actively declining. CT of the head is negative for acute intracranial abnormality, CT chest with suspected aspiration PNA, repeat CXR and CT head pending. MRI brain negative for acute abnormality. Metabolic derangement noted on chemistry panel including but not limited to improving hyponatremia. ABG with CO2 92. Neuro will evaluate for cause of worsening encephalopathy. Past Med Surg Social Fam HX - Past Medical History Medical history: CHF, coronary artery disease, hyperlipidemia, hypertension, myocardial infarction Psychiatric history: no psych history - Past Surgical History Surgical History: hip replacement Additional surgical history: Back surgery, left hip sx, prostate sx. - Social History Smoking Status: Former smoker Smokeless Tobacco Status: No Alcohol use: none Drug use: none - Family History Mother Living Status: Hx Family Cardiac Disorders: Yes (HTN) Hx Family Cancer: Yes (breast, skin face) Father Living Status: Hx Family Cancer: Yes (prostate) Medications and Allergies Atorvastatin [Lipitor] 40 mg PO HS 05/13/17 [History] Finasteride [Proscar] 5 mg PO DAILY 05/13/17 [History] Losartan/Hydrochlorothiazide [Hyzaar 100-25 Tablet] 1 each PO DAILY 05/13/17 [History] Metoprolol XL (24 HR) Succ [Toprol Xl] 50 mg PO DAILY 05/13/17 [History] Spironolactone [Aldactone] 25 mg PO DAILY 05/13/17 [History] Acetaminophen [Tylenol] 1,000 mg PO DAILY 01/14/19 [History] Aspirin [Lo-Dose Aspirin EC] 81 mg PO DAILY 01/14/19 [History] Melatonin [Melatin] 3 mg PO HS PRN 01/14/19 [History] Allergy/AdvReac Type Severity Reaction Status Date / Time Penicillins [PCN] Allergy Hives Verified 01/14/19 10:19 All Systems: The remainder of the systems were reviewed and are negative Review of Systems: REVIEW OF SYSTEMS GENERAL: Positive: unexpected 45lb weight loss x6m, fatigue, exercise intolerance, hypothermia NEUROLOGIC: Negative for any blurry vision, blind spots, double vision, facial asymmetry, dysphagia, dysarthria, hemiparesis, hemisensory deficits, tingling, numbness, unilateral weakness or numbness/tingling, Positive: reports hypersomnolence (sleeping 16 hours), generalized weakness, AMS and confusion HEENT: Negative for any head trauma, neck trauma, neck stiffness, photophobia, phonophobia Positive for dysphagia CARDIAC: Negative for any chest pain, palpitations Positive: peripheral edema and weak cough PULMONARY: Positive shortness of breath GASTROINTESTINAL: Negative for nausea, vomiting ENDOCRINE: Thyroid trouble, heat/cold intolerance, excessive sweating, thirst, hunger, increased FSBG, or A1C, DM, increased urination, changes in height/weight MUSCULOSKELETAL: Positive for loss of overall strength and generalized weakness as well as a decreased activity tolerance. Physical Examination - Vital Signs Vital Signs: Initial Vital Signs Temp Pulse Resp BP Pulse Ox 98.5 F 78 18 133/77 93 01/14/19 07:29 01/14/19 07:29 01/14/19 07:29 01/14/19 07:29 01/14/19 07:29 - Exam Exam: Examination: General Examination: *CONSTITUTIONAL: Generally weak appearing, alert to self. moderate respiratory distress, Defer to vital signs *GENERAL APPEARANCE OF PATIENT ill appearing elderly male *EYES: pupils equal, round, reactive to light and accommodation, conjunctiva clear *CARDIOVASCULAR RRR, S1, S2, has peripheral edema in BUE, b/l hands, and BLE, dorsalis pedis pulses normal. *PULMONARY: Tachypneic, respiratory distress with accessory muscle use, overall poor air movement. Rt and Lt lung bases diminished to auscultation, fine rales heard b/l scattered throughout Musculoskeletal: *GAIT AND STATION no assessed *ASSESSMENT OF MUSCLE STRENGTH IN THE UPPER AND LOWER EXTREMITIES bilateral deltoid, bicep, tricep, timber girdler strength, hip flexors ,anterior tibialis, dorsoflexion of the foot 2/5 *MUSCLE TONE IN THE UPPER AND LOWER EXTREMITIES generalized poor tone and weakness atrophy in the hand intrinsic Neurological: *ORIENTATION to person, situation, time and place *RECURRENT AND REMOTE MEMORY altered; patient is encephalopathic *ATTENTION AND CONCENTRATION are altered, in acute distress, does not follow commands *LANGUAGE FUNCTION pocketing food today, concerns for dysphagia *FUND OF KNOWLEDGE confused *MENTAL attention span and concentration altered, he is in innattentive at times and encephalopathic *CN II Rt optic fundi with cataract Lt optic fundi with no obvious papilledema patient is s/p remote cataract removal *CN III,IV, PERRLA extraocular eye movements were full, no nystagmus and no ptosis noted. *CN V shows normal sensation and jaw opens symmetrically. *CN VII attempted, patient weak and encephalopathic, unable to perform *CN VIII hard of hearing (chronic hearing difficulty) *CN IX,,X poor cough and poor gag *CN XI not assessed would not perform *CN XII not assessed would not perform *SENSORY EXAMINATION light touch intact *REFLEXES: deep tendon reflexes were absent diffusely, no pathological reflexes were noted. *CEREBELLAR TESTING not tested; generally weak and unable to perform finger to nose to heel to garcia. No opsoclonus *PAIN LEVEL 0 Results - Laboratory Findings CBC and BMP: 01/16/19 01:14 01/16/19 09:51 Abnormal lab findings: Abnormal lab results WBC 12.8 K/mcL (4.3-11.1) H 01/16/19 01:14 MPV 8.9 fL (9.4-12.4) L 01/16/19 01:14 Neutrophils # 11.6 K/mcL (1.6-8.9) H 01/16/19 01:14 Lymphocytes # 0.3 K/mcL (0.6-4.6) L 01/16/19 01:14 ABG pH 7.21 pH Units (7.32-7.45) L 01/16/19 12:01 ABG pCO2 97 mmHg (35-45) H* 01/16/19 12:01 ABG pO2 60 mmHg (85-104) L 01/16/19 12:01 ABG HCO3 39 mEq/L (21-27) H 01/16/19 12:01 ABG Total CO2 42 mEq/L (20-26) H 01/16/19 12:01 ABG O2 Saturation 83 % (95-98) L 01/16/19 12:01 ABG Base Excess 8 mEq/L (-2 to 3) H 01/16/19 12:01 Sodium 125 mEq/L (136-145) L 01/16/19 09:51 Chloride 85 mEq/L (98-107) L 01/16/19 01:14 Carbon Dioxide 38 mEq/L (23-29) H 01/16/19 01:14 Creatinine 0.51 mg/dL (0.70-1.30) L 01/16/19 01:14 Glucose 161 mg/dL (70-105) H 01/16/19 01:14 POC Glucose 111 mg/dL (70-99) H 01/15/19 12:24 Calculated Osmolality 259 (280-300) L 01/16/19 01:14 Ammonia 67 mcmol/L (16-53) H 01/15/19 06:10 B-Natriuretic Peptide 336 pg/mL (Less than 100) H 01/15/19 03:20 Serum Total Protein 5.3 g/dL (6.4-8.9) L 01/14/19 09:20 Albumin 3.2 g/dL (3.5-5.7) L 01/14/19 09:20 Globulin 2.1 g/dL (2.4-3.5) L 01/14/19 09:20 TSH 0.302 mcIU/mL (0.340-5.600) L 01/15/19 03:20 Total T3 0.42 ng/mL (0.87-1.78) L 01/16/19 01:14 - Diagnostic Findings Additional findings: CT/CT abd pelvis w iv no oral - - also, CT of chest IMPRESSION: Circumferential rectal wall thickening, with adjacent presacral soft tissue edema. There is also a small lymph nodes seen adjacent to the rectum measuring 7.4 mm. Differential considerations include proctitis, though a circumferential nonobstructive rectal mass cannot be excluded given patient's history of weight loss. Recommend correlation with colonoscopy. No other concerning process seen for neoplasm within the chest, abdomen or pelvis. Trace bilateral pleural effusions, with minimal emphysematous change. Minimal tree-in-bud like opacities noted at the right lung base posteriorly, as well as left basilar airspace disease and some areas of hyperdense material noted which can be seen in the setting of aspiration. Questionable mild bilateral hydronephrosis versus small parapelvic cysts. No obstructive calculi or mass. No ureteral dilation. MR/MR head/brain wo con IMPRESSION: 1. No acute infarct or acute intracranial process identified. 2. Mild chronic small vessel ischemic changes. CT/CT head/brain wo con IMPRESSION: Severely limited exam with no definite acute intracranial abnormality. Consider repeat imaging once the patient is able to remain still. XR/XR chest 1V portable IMPRESSION: Vague patchy airspace opacities bilaterally, may be related to minimal pulmonary edema versus pneumonia. Mild atelectasis at the left lung base. Consult Discharge Plan - Plan Referrals: Michael Gonzalez MD [Partnered Physician] - (Sent web request on 01-15-19 @ [phone]) Mika Stokes MD [Primary Care Provider] - 01/27/19 8:30 am <Irvin Thomason I - Last Filed: 01/18/19 16:30> Date of Encounter: 01/16/19 Assessment and Plan (1) Encephalopathy Current Visit: Yes Status: Acute Pt was seen face to face, HPI was reviewed and pt was examined, i agree with Manjinder Smith cnp, on January 16, Documentation, HPI was reviewed , and assessment and Plan was discussed, with Pt family and CONCESSIONIST. imaging studies as well as EEG was reviewed as well at this time NO evidence of any TOOLROOM KEEPER infection,stroke or Seizure, pt symptoms seem to be more of HYPERCAPNIC HYPOXIC ENCEPHALOPATHY he likely need to be intubated to protect his airways plan discussed with the primary team. family updated Irvin Thomason MD History of Present Illness HPI: Mr. Cheema is a 73 year old male All Systems: The remainder of the systems were reviewed and are negative Physical Examination - Vital Signs Vital Signs: Initial Vital Signs Temp Pulse Resp BP Pulse Ox 98.5 F 78 18 133/77 93 01/14/19 07:29 01/14/19 07:29 01/14/19 07:29 01/14/19 07:29 01/14/19 07:29 Results - Laboratory Findings CBC and BMP: 01/18/19 03:46 01/18/19 03:46 Abnormal lab findings: Abnormal lab results WBC 26.5 K/mcL (4.3-11.1) H D 01/17/19 02:01 RBC 4.03 M/mcL (4.19-5.50) L 01/17/19 02:01 Hgb 11.8 g/dL (12.9-16.9) L 01/17/19 02:01 Hct 34.7 % (37.5-50.1) L 01/17/19 02:01 MPV 9.1 fL (9.4-12.4) L 01/17/19 02:01 Neutrophils # 12.1 K/mcL (1.6-8.9) H 01/16/19 14:10 Lymphocytes # 0.4 K/mcL (0.6-4.6) L 01/16/19 14:10 ABG pH 7.51 pH Units (7.32-7.45) H 01/17/19 04:44 ABG pO2 125 mmHg (85-104) H 01/17/19 04:44 ABG HCO3 35 mEq/L (21-27) H 01/17/19 04:44 ABG Total CO2 36 mEq/L (20-26) H 01/17/19 04:44 ABG O2 Saturation 99 % (95-98) H 01/17/19 04:44 ABG Base Excess 11 mEq/L (-2 to 3) H 01/17/19 04:44 Sodium 127 mEq/L (136-145) L 01/17/19 09:55 Chloride 87 mEq/L (98-107) L 01/17/19 02:01 Carbon Dioxide 33 mEq/L (23-29) H 01/17/19 02:01 Glucose 124 mg/dL (70-105) H 01/17/19 02:01 POC Glucose 119 mg/dL (70-99) H 01/17/19 11:42 Calculated Osmolality 264 (280-300) L 01/17/19 02:01 B-Natriuretic Peptide 336 pg/mL (Less than 100) H 01/15/19 03:20 Serum Total Protein 5.8 g/dL (6.4-8.9) L 01/16/19 14:10 Albumin 3.3 g/dL (3.5-5.7) L 01/16/19 14:10 TSH 0.302 mcIU/mL (0.340-5.600) L 01/15/19 03:20 Total T3 0.42 ng/mL (0.87-1.78) L 01/16/19 01:14 Urine Clarity Cloudy (Clear) A 01/16/19 13:10 Urine Protein 100 mg/dL (Neg-Trace) H 01/16/19 13:10 Urine Blood Large (Negative) H 01/16/19 13:10 Ur Leukocyte Esterase Trace (Negative) H 01/16/19 13:10 Urine Microscopic RBC TNTC per hpf (0-3) H 01/16/19 13:10 Urine Microscopic WBC 5-15 per hpf (0-3) H 01/16/19 13:10 Ur Squamous Epith Cells Many per lpf (None-Few) H 01/16/19 13:10 Ur Culture Indicated? NO. (NO) A 01/16/19 13:10 Coronavirus NL63 (PCR) DETECTED (Not Detect) A 01/16/19 22:11
[2019-01-16] MEDS ORDERED: 0.9 % Sodium Chloride 500 ML ONE (13:07)
[2019-01-16] MEDS ORDERED: *HR* FentaNYL (PF) 100 MCG/2 ML VIAL ONE (13:21)
[2019-01-16 13:26] LABS: Bilirubin,Urine Negative (Negative); Blood,Urine Large (Negative); Clarity,Urine Cloudy (Clear); Color,Urine Yellow (Yellow); Glucose,Urine (UA) Normal (Normal); Ketones,Urine Negative (Negative); Leukocyte Esterase,Urine Trace (Negative); Nitrite,Urine Negative (Negative); Protein,Urine 100 mg/dL (Neg-Trace); Specific Gravity,Urine 1.017 (1.010-1.025); Urobilinogen,Urine Normal (Normal)
[2019-01-16 13:31] LABS: Bacteria,Urine None Seen per hpf (None-Few); Hyaline Casts,Urine Few per lpf (None-Few); RBC,Urine TNTC per hpf (0-3); Squamous Epithelial Cell,Urine Many per lpf (None-Few)
--- NOTE | 2019-01-16 14:06 | Procedure Note ---
<Malathi Cullen M - Last Filed: 01/16/19 17:38> Date of procedure: 01/16/19 Procedure: Endotracheal Intubation Date: 01/16/19 Time: 13:55 Indication: Respiratory Distress Resident: Dr. Cullen Attending: Dr. Corey A time-out was completed verifying correct patient, procedure, site, positioning, and special equipment if applicable. The patient was placed in a flat position. Sedation was obtained using etomidate 20mg and paralytic agent with succinylcholine 120mg. The patient was easily ventilated using an ambu bag. The glidescope with a D blade on the CMAC was used and inserted into the oropharynx at which time there was a Grade 1 view of the vocal cords. A 7.5- kiswahili endotracheal tube was inserted and visualized going through the vocal cords. The stylette was removed. Colorimetric change was visualized on the CO2 meter. Breath sounds were heard in both lung barclay equally. The endotracheal tube was placed at 24 cm, measured at the lip. Dr. Corey was present for the entire procedure. A chest x-ray was ordered to assess for pneumothorax and verify endotrachealtube placement. The tube was advanced an additional 2 cm. The patient tolerated the procedure well and there were no complications. Was there an health care legal assistant present: Yes Machine Lead Burner: José Corey Estimated blood loss (cc): 0 Specimen: none <José Corey - Last Filed: 01/16/19 18:02> Pre-op diagnosis: Respiratory Failure Post-op diagnosis: same Attestation Statement: I was present and supervised the entire procedure which was performed skillfully by Dr. Cullen
--- NOTE | 2019-01-16 14:06 | Pulmonology Consult Note ---
Date of Encounter: 01/16/19 Time of Encounter: 13:25 History of Present Illness Consult date: 01/16/19 Requesting physician: Joanna Drummond Reason for consult: dyspnea Chief complaint: low sodium level Past Med Surg Social Fam HX - Past Medical History Medical history: CHF, coronary artery disease, hyperlipidemia, hypertension, myocardial infarction Psychiatric history: no psych history - Past Surgical History Surgical History: hip replacement Additional surgical history: Back surgery, left hip sx, prostate sx. - Social History Smoking Status: Former smoker Smokeless Tobacco Status: No Alcohol use: none Drug use: none - Family History Mother Living Status: Hx Family Cardiac Disorders: Yes (HTN) Hx Family Cancer: Yes (breast, skin face) Father Living Status: Hx Family Cancer: Yes (prostate) Medications and Allergies Atorvastatin [Lipitor] 40 mg PO HS 05/13/17 [History] Finasteride [Proscar] 5 mg PO DAILY 05/13/17 [History] Losartan/Hydrochlorothiazide [Hyzaar 100-25 Tablet] 1 each PO DAILY 05/13/17 [History] Metoprolol XL (24 HR) Succ [Toprol Xl] 50 mg PO DAILY 05/13/17 [History] Spironolactone [Aldactone] 25 mg PO DAILY 05/13/17 [History] Acetaminophen [Tylenol] 1,000 mg PO DAILY 01/14/19 [History] Aspirin [Lo-Dose Aspirin EC] 81 mg PO DAILY 01/14/19 [History] Melatonin [Melatin] 3 mg PO HS PRN 01/14/19 [History] Allergy/AdvReac Type Severity Reaction Status Date / Time Penicillins [PCN] Allergy Hives Verified 01/14/19 10:19 All Systems: The remainder of the systems were reviewed and are negative Results - Laboratory Findings CBC and BMP: 01/16/19 14:10 01/16/19 14:10 ABG ABG pH 7.21 pH Units (7.32-7.45) L 01/16/19 12:01 ABG pCO2 97 mmHg (35-45) H* 01/16/19 12:01 ABG pO2 60 mmHg (85-104) L 01/16/19 12:01 ABG O2 Saturation 83 % (95-98) L 01/16/19 12:01 Abnormal lab findings: Abnormal lab results WBC 12.8 K/mcL (4.3-11.1) H 01/16/19 01:14 MPV 8.9 fL (9.4-12.4) L 01/16/19 01:14 Neutrophils # 11.6 K/mcL (1.6-8.9) H 01/16/19 01:14 Lymphocytes # 0.3 K/mcL (0.6-4.6) L 01/16/19 01:14 ABG pH 7.21 pH Units (7.32-7.45) L 01/16/19 12:01 ABG pCO2 97 mmHg (35-45) H* 01/16/19 12:01 ABG pO2 60 mmHg (85-104) L 01/16/19 12:01 ABG HCO3 39 mEq/L (21-27) H 01/16/19 12:01 ABG Total CO2 42 mEq/L (20-26) H 01/16/19 12:01 ABG O2 Saturation 83 % (95-98) L 01/16/19 12:01 ABG Base Excess 8 mEq/L (-2 to 3) H 01/16/19 12:01 Sodium 125 mEq/L (136-145) L 01/16/19 09:51 Chloride 85 mEq/L (98-107) L 01/16/19 01:14 Carbon Dioxide 38 mEq/L (23-29) H 01/16/19 01:14 Creatinine 0.51 mg/dL (0.70-1.30) L 01/16/19 01:14 Glucose 161 mg/dL (70-105) H 01/16/19 01:14 POC Glucose 111 mg/dL (70-99) H 01/15/19 12:24 Calculated Osmolality 259 (280-300) L 01/16/19 01:14 Ammonia 67 mcmol/L (16-53) H 01/15/19 06:10 B-Natriuretic Peptide 336 pg/mL (Less than 100) H 01/15/19 03:20 Serum Total Protein 5.3 g/dL (6.4-8.9) L 01/14/19 09:20 Albumin 3.2 g/dL (3.5-5.7) L 01/14/19 09:20 Globulin 2.1 g/dL (2.4-3.5) L 01/14/19 09:20 TSH 0.302 mcIU/mL (0.340-5.600) L 01/15/19 03:20 Total T3 0.42 ng/mL (0.87-1.78) L 01/16/19 01:14 Urine Clarity Cloudy (Clear) A 01/16/19 13:10 Urine Protein 100 mg/dL (Neg-Trace) H 01/16/19 13:10 Urine Blood Large (Negative) H 01/16/19 13:10 Ur Leukocyte Esterase Trace (Negative) H 01/16/19 13:10 Urine Microscopic RBC TNTC per hpf (0-3) H 01/16/19 13:10 Urine Microscopic WBC 5-15 per hpf (0-3) H 01/16/19 13:10 Ur Squamous Epith Cells Many per lpf (None-Few) H 01/16/19 13:10 Ur Culture Indicated? NO. (NO) A 01/16/19 13:10 - Microbiology Findings Microbiology Findings: Microbiology, Last 48 Hours 01/16/19 12:34 Blood Culture - Preliminary Peripheral Venipuncture Culture is incubating and being continuously monitored for growth. Final report to follow. - Clinical Findings Intake & Output: Intake & Output 01/15/19 01/16/19 01/16/19 23:59 07:59 15:59 Intake Total 1363 / 1363 Output Total 350 / 350 550 / 550 Balance -350 / -350 813 / 813 Weight 89.3 kg Consult Discharge Plan - Plan Referrals: Michael Gonzalez MD [Partnered Physician] - (Sent web request on 01-15-19 @ [phone]) Mika Stokes MD [Primary Care Provider] - 01/27/19 8:30 am
--- NOTE | 2019-01-16 14:06 | Procedure Note ---
<Malathi Cullen M - Last Filed: 01/16/19 17:37> Date of procedure: 01/16/19 Procedure: Central Venous Catheter (CVC, Central Line) Placement Date: 01/16/19 Time: 13:30 Indication: Hemodynamic monitoring/Intravenous access Resident: Dr. Cullen Attending: Dr. Corey A time-out was completed verifying correct patient, procedure, site, positioning, and special equipment if applicable. The patient was placed in a dependent position appropriate for central line placement based on the vein to be cannulated. The patients right groin was prepped and draped in sterile fashion. 1% Lidocaine was used to anesthetize the surrounding skin area. A triple lumen 7 khmer Cordis catheter was introduced into the the common femoral vein using the Seldinger technique and under ultrasound guidance. The catheter was threaded smoothly over the guide wire and appropriate blood return was obtained. Each lumen of the catheter was evacuated of air and flushed with sterile saline. The catheter was then sutured in place to the skin and a sterile dressing applied. Perfusion to the extremity distal to the point of catheter insertion was checked and found to be adequate. Dr. Corey was present for the entire procedure. Estimated Blood Loss: 5cc The patient tolerated the procedure well and there were no complications. KUB was obtained to verify the central line location. Was there an operations manager assistant present: Yes Package Drier: José Corey Estimated blood loss (cc): 5 Specimen: none <José Corey - Last Filed: 01/16/19 18:03> Attestation Statement: I was present and supervised the entire procedure which was performed skillfully by the resident physician Dr. Cullen under emergent conditions
[2019-01-16 14:45] LABS: ABG Base Excess 13 mEq/L (-2 to 3); ABG HCO3 40 mEq/L (21-27); ABG Oxygen Saturation 95 % (95-98); ABG PCO2 59 mmHg (35-45); ABG PH 7.44 pH Units (7.32-7.45); ABG PO2 78 mmHg (85-104); ABG TCO2 42 mEq/L (20-26); Blood Gas Modality VC; Blood Gas PEEP 5 cm H2O; Blood Gas Respiration Rate 18; Blood Gas VT 500 cc
[2019-01-16 14:49] LABS: Basophils % 0.1 %; Eosinophils % 0.1 %; Hematocrit 35.9 % (37.5-50.1); Immature Granulocytes % 0.6 % (0-4); Lymphocytes # 0.4 K/mcL (0.6-4.6); Lymphocytes % 2.8 %; Mean Corpuscular HGB Conc 33.4 g/dL (31.6-35.5); Mean Corpuscular Hemoglobin 29.3 pg (28.0-33.3); Mean Corpuscular Volume 87.6 fL (83.0-100.0); Monocytes # 0.8 K/mcL (0.0-1.3); Monocytes % 6.1 %; Neutrophils # 12.1 K/mcL (1.6-8.9); Platelet Count 309 K/mcL (140-400); Segmented Neutrophils % 90.3 %
[2019-01-16 15:02] LABS: Alanine Aminotransferase 19 Units/L (7-52); Albumin 3.3 g/dL (3.5-5.7); Albumin/Globulin Ratio 1.3 (1.1-2.2); Alkaline Phosphatase 59 Units/L (34-104); Aspartate Amino Transferase 18 Units/L (13-39); BUN/Creatinine Ratio 21 (6-26); Bilirubin,Total 0.3 mg/dL (0.3-1.0); Blood Urea Nitrogen 13 mg/dL (8-23); Calcium 8.8 mg/dL (8.6-10.3); Carbon Dioxide 38 mEq/L (23-29); Chloride 87 mEq/L (98-107); Globulin 2.5 g/dL (2.4-3.5); Glucose 128 mg/dL (70-105); Magnesium 1.9 mg/dL (1.6-2.6); Osmolality,Calculated 266 (280-300); Potassium 4.9 mEq/L (3.5-5.1); Sodium 127 mEq/L (136-145); Total Protein 5.8 g/dL (6.4-8.9); eGFR For Non-African Americans > 60 (> 60)
[2019-01-16 15:08] LABS: INR 0.9; Prothrombin Time 10.1 Seconds (9.4-12.1)
[2019-01-16 15:11] LABS: Activated Partial Thrombo Time 28.8 Seconds (26.0-36.0)
[2019-01-16 15:23] LABS: Troponin I < 0.03 ng/mL (< 0.04)
[2019-01-16] MEDS ORDERED: *HR* FentaNYL (PF) 100 MCG/2 ML VIAL IVP PRN (15:23)
[2019-01-16] MEDS: FentaNYL (PF) 1,000 MCG in 0.9 % Sodium Chloride 80 ML IVC SCH (15:50)
[2019-01-16] MEDS: Norepinephrine 4 MG in D5% in Water 250 ML IVC SCH ×2 (15:53→23:15)
[2019-01-16] MEDS ORDERED: MetroNIDAZOLE 500 MG/100 ML 500 MG/100 ML BAG IVPB SCH (16:00)
[2019-01-16] MEDS: Clindamycin 900 MG/50 ML 900 MG/50 ML IV.SOLN IVPB SCH ×2 (16:29→23:15)
[2019-01-16] MEDS: Cefepime HCl 2,000 MG in Water for inj. (sterile) 20 ML 20 ML IVP SCH ×2 (16:29→23:11)
[2019-01-16] MEDS ORDERED: Perflutren Lipid Microsphere 1.3 ML in 0.9 % Sodium Chloride 8.7 ML IVP ONE (17:43)
--- NOTE | 2019-01-16 18:01 | Nephrology Progress Note ---
Date of Encounter: 01/16/19 Time of Encounter: 17:45 - Assessment and Plan (1) Hyponatremia Current Visit: Yes Status: Acute Sodium continues to improve at 127 this evening. will continue fluid restiction if possible Will hold off on more tolvaptan today Will request all med to be placed in NS if possible Keep sodium tabs if possible via NGT (2) Bilateral hydronephrosis Current Visit: Yes Status: Acute (3) Ischemic cardiomyopathy Current Visit: No Status: Chronic (4) Hypertension Current Visit: No Status: Chronic Qualifiers: Qualified Code(s): I10 - Essential (primary) hypertension (5) BPH (benign prostatic hyperplasia) Current Visit: No Status: Chronic Qualifiers: Qualified Code(s): N40.1 - Benign prostatic hyperplasia with lower urinary tract symptoms (6) Weight loss Current Visit: Yes Status: Acute Subjective Interval history: Interim events noted; pt admitted as a transfer from [facility] with altered mental status and hyponatremia with sodium as low as 117 now improving after a dose of tolvaptan but has developed more lethargy and resp. distress requiring intubation and transfer to ICU. Objective - Vital Signs Vital signs: Vital Signs Temp Pulse Resp BP Pulse Ox 01/16/19 17:06 16 94/62 90 01/16/19 17:00 95 17 94/62 98 01/16/19 16:00 95 16 87/63 93 01/16/19 15:32 16 86/63 94 01/16/19 15:09 75 01/16/19 15:00 97.9 F 75 16 98/64 95 01/16/19 14:00 97.9 F 74 26 154/104 100 01/16/19 12:25 17 131/75 100 01/16/19 08:14 97.2 F L 82 18 132/66 95 01/16/19 03:36 97.2 F L 77 18 126/63 92 01/16/19 02:00 95.5 F L 79 24 01/16/19 00:49 94.3 F L 79 20 120/56 94 01/16/19 00:46 32 01/15/19 20:08 97.6 F 85 18 142/76 100 Intake and Output 01/16/19 01/16/19 01/16/19 07:59 15:59 23:59 Intake Total 1363 / 1363 500 / 500 33 / 33 Output Total 550 / 550 200 / 200 Balance 813 / 813 300 / 300 Intake: IV Fluids 1363 / 1363 500 / 500 0.9 % Sodium Chloride 500 ML @ 500 / 500 0 mls/hr .ROUTE .STK-MED ONE Rx #:[id number] Levophed 4 MG In Dextrose 5% 250 ML @ 8 MCG/MIN 30.48 mls/hr IVC CONT CHELO Rx#:[id number] Maxipime 2,000 MG In Water for inj. (sterile) 20 ML @ 300 mls/ hr IVP Q8HR CHELO Rx#:[id number] Oral 0 / 0 Output: Urine 400 / 400 Catheter 150 / 150 200 / 200 Other: Stool Size Small Stool Consistency soft Stool Color Brown # Bowel Movements 1 Weight 89.3 kg 89.8 kg Patient Weight 01/16/19 23:59 Weight 89.8 kg - Lab 01/16/19 14:10 01/16/19 14:10 Most recent lab results ABG pH 7.44 pH Units (7.32-7.45) D 01/16/19 14:40 ABG pCO2 59 mmHg (35-45) H D 01/16/19 14:40 ABG pO2 78 mmHg (85-104) L 01/16/19 14:40 ABG HCO3 40 mEq/L (21-27) H 01/16/19 14:40 ABG O2 Saturation 95 % (95-98) 01/16/19 14:40 Calcium 8.8 mg/dL (8.6-10.3) 01/16/19 14:10 Phosphorus 3.8 mg/dL (2.7-4.5) 01/16/19 01:14 Magnesium 1.9 mg/dL (1.6-2.6) 01/16/19 14:10 Urine Creatinine 49 mg/dL 01/14/19 14:45 Urine Sodium 69.4 mEq/L 01/14/19 14:45 Consult Discharge Plan - Plan Referrals: Michael Gonzalez MD [Partnered Physician] - (Sent web request on 01-15-19 @ 1543) Mika Stokes MD [Primary Care Provider] - 01/27/19 8:30 am
--- NOTE | 2019-01-16 18:10 | Pulmonology Progress Note ---
<LeoraKurtisJosé W - Last Filed: 01/16/19 18:54> Date of Encounter: 01/16/19 Objective PUL Vital signs: Last Vital Signs Temp 97.9 F 01/16/19 15:00 Pulse 99 01/16/19 18:00 Resp 16 01/16/19 18:00 BP 90/63 01/16/19 18:00 Pulse Ox 97 01/16/19 18:00 Ventilator Settings Ventilator Settings: Ventilator Settings, Last 8 Hours Ventilator Tidal Volume 500 Setting Ventilator Tidal Volume 500 Setting Ventilator Tidal Volume 500 Setting Ventilator Tidal Volume 500 Setting Ventilator Respiratory Rate 16 Setting Ventilator Respiratory Rate 16 Setting Ventilator Respiratory Rate 18 Setting Ventilator Respiratory Rate 18 Setting Actual Respiratory Rate 16 Actual Respiratory Rate 16 Actual Respiratory Rate 18 Positive End Expiratory 8 Pressure Positive End Expiratory 5 Pressure Positive End Expiratory 5 Pressure Positive End Expiratory 5 Pressure Peak Inspiratory Airway 27 Pressure Peak Inspiratory Airway 25 Pressure Peak Inspiratory Airway 26 Pressure Results - Laboratory Findings CBC and BMP: 01/16/19 14:10 01/16/19 17:18 ABG ABG pH 7.44 pH Units (7.32-7.45) D 01/16/19 14:40 ABG pCO2 59 mmHg (35-45) H D 01/16/19 14:40 ABG pO2 78 mmHg (85-104) L 01/16/19 14:40 ABG O2 Saturation 95 % (95-98) 01/16/19 14:40 PT/INR, D-dimer PT 10.1 Seconds (9.4-12.1) 01/16/19 14:10 Abnormal lab findings: Abnormal lab results WBC 13.3 K/mcL (4.3-11.1) H 01/16/19 14:10 RBC 4.10 M/mcL (4.19-5.50) L 01/16/19 14:10 Hgb 12.0 g/dL (12.9-16.9) L 01/16/19 14:10 Hct 35.9 % (37.5-50.1) L 01/16/19 14:10 MPV 9.0 fL (9.4-12.4) L 01/16/19 14:10 Neutrophils # 12.1 K/mcL (1.6-8.9) H 01/16/19 14:10 Lymphocytes # 0.4 K/mcL (0.6-4.6) L 01/16/19 14:10 ABG pCO2 59 mmHg (35-45) H D 01/16/19 14:40 ABG pO2 78 mmHg (85-104) L 01/16/19 14:40 ABG HCO3 40 mEq/L (21-27) H 01/16/19 14:40 ABG Total CO2 42 mEq/L (20-26) H 01/16/19 14:40 ABG Base Excess 13 mEq/L (-2 to 3) H 01/16/19 14:40 Sodium 127 mEq/L (136-145) L 01/16/19 17:18 Chloride 87 mEq/L (98-107) L 01/16/19 14:10 Carbon Dioxide 38 mEq/L (23-29) H 01/16/19 14:10 Creatinine 0.62 mg/dL (0.70-1.30) L 01/16/19 14:10 Glucose 128 mg/dL (70-105) H 01/16/19 14:10 POC Glucose 111 mg/dL (70-99) H 01/15/19 12:24 Calculated Osmolality 266 (280-300) L 01/16/19 14:10 B-Natriuretic Peptide 336 pg/mL (Less than 100) H 01/15/19 03:20 Serum Total Protein 5.8 g/dL (6.4-8.9) L 01/16/19 14:10 Albumin 3.3 g/dL (3.5-5.7) L 01/16/19 14:10 TSH 0.302 mcIU/mL (0.340-5.600) L 01/15/19 03:20 Total T3 0.42 ng/mL (0.87-1.78) L 01/16/19 01:14 Urine Clarity Cloudy (Clear) A 01/16/19 13:10 Urine Protein 100 mg/dL (Neg-Trace) H 01/16/19 13:10 Urine Blood Large (Negative) H 01/16/19 13:10 Ur Leukocyte Esterase Trace (Negative) H 01/16/19 13:10 Urine Microscopic RBC TNTC per hpf (0-3) H 01/16/19 13:10 Urine Microscopic WBC 5-15 per hpf (0-3) H 01/16/19 13:10 Ur Squamous Epith Cells Many per lpf (None-Few) H 01/16/19 13:10 Ur Culture Indicated? NO. (NO) A 01/16/19 13:10 - Microbiology Findings Microbiology Findings: Microbiology, Last 48 Hours 01/16/19 17:18 Blood Culture - Preliminary Peripheral Venipuncture Culture is incubating and being continuously monitored for growth. Final report to follow. 01/16/19 13:10 Legionella Antigen - Final Urine,Catheterized (Straight) Streptococcus pneumoniae Antigen (M - Final 01/16/19 12:34 Blood Culture - Preliminary Peripheral Venipuncture Culture is incubating and being continuously monitored for growth. Final report to follow. - Clinical Findings Intake & Output: Intake & Output 01/16/19 01/16/19 01/16/19 07:59 15:59 23:59 Intake Total 1363 / 1363 500 / 500 83 / 83 Output Total 550 / 550 200 / 200 Balance 813 / 813 300 / 300 83 / 83 Weight 89.3 kg 89.8 kg Consult Discharge Plan - Plan Referrals: Michael Gonzalez MD [Partnered Physician] - (Sent web request on 01-15-19 @ 1388) Mika Stokes MD [Primary Care Provider] - 01/27/19 8:30 am - Attending Attestation I examined this patient and my medical decision-making was reviewed with the Resident Physician. I agree with the documented findings, disposition and treatment plan as described except to the extent set forth below. We independently had [id number] contact with the patient I spent 60min of Critical Care time with this patient. It involved decision making of high complexity to assess, manipulate, and support vital organ system failure and/or to prevent further life threatening deterioration of the patient's condition. The time involved in the performance of separately reportable procedures was not counted toward critical care time. Patient seen and examined at bedside Labs, radiology, chart personally reviewed. RETORT COOLER: Worsening encephalopathy secondary to respiratory failure and acidosis; neurology following Pulm: Patient has acute respiratory failure just hypoxic and hypercapnic in nature and required emergent intubation because of obtundation. He is currently on the vent and is stable I suspect a combination of factors leading to his respiratory failure including hydrostatic pulmonary edema and pneumonia we will use a low tidal volume ventilatory strategy currently acceptable gas exchange postintubation Cards: Patient has known heart failure with reduced ejection fraction which I feel is currently decompensated leading to shock this is likely mediated by sepsis he is currently requiring low-dose vasopressor support lactate is mildly elevated he has not undergone repeat fluid resuscitation because I feel that his heart failure is decompensated this would to clinically be contraindicated stat echocardiogram pending there is no elevated troponin at this time to suggest ACS. EKG is relatively unchanged from previous admission EKG GI: GI prophylaxis given Nutrition: Nothing by mouth for now Renal: UOP Monitored, Cont to Trend sCr and monitor Electrolytes. Patient has h yponatremia which is improving as is multifactorial including possibly volume depletion on admission complicated by chronic heart failure. Appreciate nephrology evaluation ID: Suspected pneumonia and high risk for aspiration we will broaden antibiotics to include aspiration organisms. Cultures of been attained de-escalate based upon clinical course Heme/Onc: DVT prophylaxis given Endo: Glucose Monitored Integ/MSK: Skin Care per routine ICU Nursing Protocol to prevent ulcers. Lines: All lines examined without evidence of infection : Dispo: Monitor in ICU for critical illness CODE: Code I updated the patient's next of kin his daughter at bedside before and after transfer to ICU and before and after endotracheal intubation. All QUESTIONS answered <Malathi Cullen - Last Filed: 01/16/19 19:43> Date of Encounter: 01/16/19 Time of Encounter: 13:25 Assessment and Plan (1) Acute respiratory failure with hypoxia and hypercapnia Current Visit: Yes Status: Acute Emergent intubation and mechanical ventilation today acute respiratory failure likely due to aspiration pneumonia, cardiogenic shock, progressing lft pleural effusion ABG with pH 7.21, CO2 91, O2 60, bicarb 39 Continue daily ABG and adjust vent settings as appropriate Abx switchd to clindamycin and cefepime, and vancomycin. Continue pressor support for hypotension Stat echocardiogram to reassess EF (2) Cardiogenic shock Current Visit: Yes Status: Acute Echo from 12/17 with LVEF 25-30%, moderately dilated LV, moderate LV diastolic dysfunction, mild mitral regurgitation CXR with worsening L pleural effusion, patient hypotension requiring pressors Troponin <0.03 and EKG unchanged from prior Repeat limited echocardiogram today Patient follows up with Dr. Sánchez, Cardiology and has pacemaker placement scheduled as outpatient Will consult Cardiology if patient has worsening LVEF. (3) Encephalopathy Current Visit: Yes Status: Acute Likely metabolic encephalopathy, multifactorial due to hypercapnea and hypoxic respiratory failure, hyponatremia, pneumonia No Neurologic deficits Patient woke up from sedation while intubated and was able to follow commands CT head and MRI brain with no acute abnormalities Neurology recommendations appreciated. (4) Ischemic cardiomyopathy Current Visit: No Status: Chronic Systolic and diastolic heart failure Repeat echocardiogram pending Plan as above (5) Aspiration pneumonia Current Visit: Yes Status: Acute CXR from today with worsening left pleural effusion and patchy airspace disease after intubation Abx with clindamycin, vancomycin, cefepime Ceftiraxone and metronidazole discontinued Urine Ag negative Blood cultures x2 from today obtained Check MRSA swab Repeat CXR in am Qualifiers: Aspiration pneumonia type: unspecified Laterality: bilateral Lung location: lower lobe of lung Qualified Code(s): J69.0 - Pneumonitis due to i nhalation of food and vomit (6) Hyponatremia Current Visit: Yes Status: Acute 127 today. S/p tolvaptan yesterday Unclear etiology Urine osmolality 499, Urine Cr 49, urine sodium 69.4, urine potassium 29.9, cortisol 20.2 Appreciate Nephrology recommendations Continue with salt tubes through NG tube Continue fluid restriction Monitor (7) Hypertension Current Visit: No Status: Chronic Home medications on hold as patient is hypotensive Qualifiers: Hypertension type: essential hypertension Qualified Code(s): I10 - Essential (primary) hypertension (8) Bilateral hydronephrosis Current Visit: Yes Status: Acute CT A/P Questionable mild bilateral hydronephrosis versus small parapelvic cysts. No obstructive calculi or mass. No ureteral dilation. Meraz catheter UA with large blood, trace leukocyte esterase and no nitrites (9) Rectal mass Current Visit: Yes Status: Suspected CT abdomen with finding of a possible rectal mass GI on consult for colonoscopy once acute issues resolve (10) DVT prophylaxis Current Visit: Yes Status: Acute SQ heparin Subjective Principal diagnosis: acute on chronic respiratory failure Interval history: Patient presented to [facility] with hyponatremia. Critical care was consultation yesterday for altered mental status and hyponatremia. The patient's mental status continued to worsen despite his hyponatremia improving. Sodium 127 today. Neurology consultation was obtained. His encephalopathy is likely secondary to aspiration pneumonia and hypercapnic aspiratory failure. An ABG was obtained. Results showed hypercapnic and hypoxemic respiratory failure. The patient continued to have increased secretions and poor mental status and w as placed on BiPAP. Secondary to the altered mental status and respiratory failure, the patient was transferred to ICU. Prior to transfer, the patient's blood pressures became hypotensive. Upon arrival to the ICU, a right common femoral vein central line was placed and pressors were started. The patient was then intubated with etomidate and succinylcholine. Repeat labwork, CXR and echocardiogram was ordered Objective PUL Vital signs: Last Vital Signs Temp 97.9 F 01/16/19 15:00 Pulse 95 01/16/19 17:00 Resp 16 01/16/19 17:06 BP 94/62 01/16/19 17:06 Pulse Ox 90 01/16/19 17:06 General appearance: lethargic, other (responds to painful stimuli, sternal rub) Eyes: nonicteric, other (PERRL) Neck: supple, no JVD Effort: other (BiPAP, bibasilar diminished breath sounds with scattered rales ) Cardiovascular: regular rate and rhythm Gastrointestinal: normoactive bowel sounds, soft, non-tender Integumentary: other (no cyanosis or rash on extremities) Musculoskeletal: no deformities other (Unable to assess neuro exam due to mental status. Appears confused. Responds to painful stimuli. Moves all four extremities) other (Unable to assess) Ventilator Settings Ventilator Settings: Ventilator Settings, Last 8 Hours Ventilator Tidal Volume 500 Setting Ventilator Tidal Volume 500 Setting Ventilator Tidal Volume 500 Setting Ventilator Tidal Volume 500 Setting Ventilator Respiratory Rate 16 Setting Ventilator Respiratory Rate 16 Setting Ventilator Respiratory Rate 18 Setting Ventilator Respiratory Rate 18 Setting Actual Respiratory Rate 16 Actual Respiratory Rate 16 Actual Respiratory Rate 18 Positive End Expiratory 8 Pressure Positive End Expiratory 5 Pressure Positive End Expiratory 5 Pressure Positive End Expiratory 5 Pressure Peak Inspiratory Airway 27 Pressure Peak Inspiratory Airway 25 Pressure Peak Inspiratory Airway 26 Pressure Results - Laboratory Findings CBC and BMP: 01/16/19 14:10 01/16/19 17:18 ABG ABG pH 7.44 pH Units (7.32-7.45) D 01/16/19 14:40 ABG pCO2 59 mmHg (35-45) H D 01/16/19 14:40 ABG pO2 78 mmHg (85-104) L 01/16/19 14:40 ABG O2 Saturation 95 % (95-98) 01/16/19 14:40 PT/INR, D-dimer PT 10.1 Seconds (9.4-12.1) 01/16/19 14:10 Abnormal lab findings: Abnormal lab results WBC 13.3 K/mcL (4.3-11.1) H 01/16/19 14:10 RBC 4.10 M/mcL (4.19-5.50) L 01/16/19 14:10 Hgb 12.0 g/dL (12.9-16.9) L 01/16/19 14:10 Hct 35.9 % (37.5-50.1) L 01/16/19 14:10 MPV 9.0 fL (9.4-12.4) L 01/16/19 14:10 Neutrophils # 12.1 K/mcL (1.6-8.9) H 01/16/19 14:10 Lymphocytes # 0.4 K/mcL (0.6-4.6) L 01/16/19 14:10 ABG pCO2 59 mmHg (35-45) H D 01/16/19 14:40 ABG pO2 78 mmHg (85-104) L 01/16/19 14:40 ABG HCO3 40 mEq/L (21-27) H 01/16/19 14:40 ABG Total CO2 42 mEq/L (20-26) H 01/16/19 14:40 ABG Base Excess 13 mEq/L (-2 to 3) H 01/16/19 14:40 Sodium 127 mEq/L (136-145) L 01/16/19 14:10 Chloride 87 mEq/L (98-107) L 01/16/19 14:10 Carbon Dioxide 38 mEq/L (23-29) H 01/16/19 14:10 Creatinine 0.62 mg/dL (0.70-1.30) L 01/16/19 14:10 Glucose 128 mg/dL (70-105) H 01/16/19 14:10 POC Glucose 111 mg/dL (70-99) H 01/15/19 12:24 Calculated Osmolality 266 (280-300) L 01/16/19 14:10 Lactic Acid 2.3 mmol/L (0.5-2.2) H 01/16/19 14:10 B-Natriuretic Peptide 336 pg/mL (Less than 100) H 01/15/19 03:20 Serum Total Protein 5.8 g/dL (6.4-8.9) L 01/16/19 14:10 Albumin 3.3 g/dL (3.5-5.7) L 01/16/19 14:10 TSH 0.302 mcIU/mL (0.340-5.600) L 01/15/19 03:20 Total T3 0.42 ng/mL (0.87-1.78) L 01/16/19 01:14 Urine Clarity Cloudy (Clear) A 01/16/19 13:10 Urine Protein 100 mg/dL (Neg-Trace) H 01/16/19 13:10 Urine Blood Large (Negative) H 01/16/19 13:10 Ur Leukocyte Esterase Trace (Negative) H 01/16/19 13:10 Urine Microscopic RBC TNTC per hpf (0-3) H 01/16/19 13:10 Urine Microscopic WBC 5-15 per hpf (0-3) H 01/16/19 13:10 Ur Squamous Epith Cells Many per lpf (None-Few) H 01/16/19 13:10 Ur Culture Indicated? NO. (NO) A 01/16/19 13:10 - Microbiology Findings Microbiology Findings: Microbiology, Last 48 Hours 01/16/19 13:10 Legionella Antigen - Final Urine,Catheterized (Straight) Streptococcus pneumoniae Antigen (M - Final 01/16/19 12:34 Blood Culture - Preliminary Peripheral Venipuncture Culture is incubating and being continuously monit ored for growth. Final report to follow. - Clinical Findings Intake & Output: Intake & Output 01/16/19 01/16/19 01/16/19 07:59 15:59 23:59 Intake Total 1363 / 1363 500 / 500 33 / 33 Output Total 550 / 550 200 / 200 Balance 813 / 813 300 / 300 33 / 33 Weight 89.3 kg 89.8 kg
[2019-01-16] MEDS: Dexmedetomidine HCl 400 MCG/100 ML MLS IVC SCH ×2 (19:40→23:19)
--- NOTE | 2019-01-16 22:08 | Electrocardiograph Report ---
[address] [address] Test Date: 2019-01-15 Pat Name: Colin Cheema Department: 110 Room: 02 Gender: M K9 Handler: : [id number] Requested By: Eder Granger Order Number: [id number] Reading MD: Ross Cunningham Measurements Intervals [facility] Rate: 68 P: 53 NH: 163 QRS: 20 QRSD: 142 T: 263 QT: 421 QTc: 438 Interpretive Statements SINUS RHYTHM LEFT BUNDLE BRANCH BLOCK LEFT VENTRICULAR HYPERTROPHY AND ST-T CHANGE Electronically Signed On 01-16-2019 22:07:03 EDT by Ross Cunningham
[2019-01-16 23:44] LABS: Adenovirus Not Detected (Not Detect); Bordetella Pertussis Not Detected (Not Detect); Chlamydophila pneumoniae Not Detected (Not Detect); Coronavirus 229E Not Detected (Not Detect); Coronavirus HKU1 Not Detected (Not Detect); Coronavirus NL63 DETECTED (Not Detect); Coronavirus OC43 Not Detected (Not Detect); Human Metapneumovirus Not Detected (Not Detect); Human Rhinovirus/Enterovirus Not Detected (Not Detect); Influenza A Subtype 2009 H1 Not Detected (Not Detect); Influenza A Untypeable Not Detected (Not Detect); Influenza B Not Detected (Not Detect); Mycoplasma pneumoniae Not Detected (Not Detect); Parainfluenza Virus 1 Not Detected (Not Detect); Parainfluenza Virus 2 Not Detected (Not Detect); Parainfluenza Virus 3 Not Detected (Not Detect); Parainfluenza Virus 4 Not Detected (Not Detect); Respiratory Syncytial Virus Not Detected (Not Detect)
[2019-01-17 03:10] LABS: Hematocrit 34.7 % (37.5-50.1); Hemoglobin 11.8 g/dL (12.9-16.9); Mean Corpuscular Hemoglobin 29.3 pg (28.0-33.3); Mean Corpuscular Volume 86.1 fL (83.0-100.0); Mean Platelet Volume 9.1 fL (9.4-12.4); Platelet Count 298 K/mcL (140-400); Red Blood Count 4.03 M/mcL (4.19-5.50); Red Cell Distribution Width 13.2 % (11.5-14.5)
[2019-01-17 03:28] LABS: BUN/Creatinine Ratio 20 (6-26); Blood Urea Nitrogen 20 mg/dL (8-23); Calcium 9.2 mg/dL (8.6-10.3); Carbon Dioxide 33 mEq/L (23-29); Chloride 87 mEq/L (98-107); Glucose 124 mg/dL (70-105); Osmolality,Calculated 264 (280-300); Potassium 4.1 mEq/L (3.5-5.1); Sodium 125 mEq/L (136-145); eGFR For Non-African Americans > 60 (> 60)
[2019-01-17 04:50] LABS: ABG Base Excess 11 mEq/L (-2 to 3); ABG HCO3 35 mEq/L (21-27); ABG Oxygen Saturation 99 % (95-98); ABG PCO2 43 mmHg (35-45); ABG PH 7.51 pH Units (7.32-7.45); ABG PO2 125 mmHg (85-104); ABG TCO2 36 mEq/L (20-26); Blood Gas Modality ASSIST CONTROL; Blood Gas PEEP 8 cm H2O; Blood Gas Respiration Rate 16; Blood Gas VT 500 cc
[2019-01-17] MEDS: *HR* Heparin 5,000 UNIT/ML VIAL SQ SCH ×2 (05:09→17:05)
[2019-01-17] MEDS: Norepinephrine 4 MG in D5% in Water 250 ML IVC SCH ×2 (05:10→18:34)
--- NOTE | 2019-01-17 07:25 | Pulmonology Progress Note ---
<Malathi Cullen M - Last Filed: 01/17/19 10:39> Date of Encounter: 01/17/19 Time of Encounter: 07:28 Assessment and Plan (1) Acute respiratory failure with hypoxia and hypercapnia Current Visit: Yes Status: Acute Emergent intubation and mechanical ventilation today Acute respiratory failure likely due to aspiration pneumonia, cardiogenic shock, progressing left pleural effusion Initially had hypercapnia prior to intubation Positive coronavirus ABG this morning with pH 7.51 and CO2 43 Continue daily ABG and adjust vent settings as appropriate Will try CPAP trial today Continue with clindamycin, cefepime, and vancomycin, day 2, to cover for aspiration pneumonia MRSA swab negative. Will de-escelate antibiotics tomorrow Sputum culture pending Echocardiogram results pending Continue with levofed for hypotension and wean as tolerated (2) Cardiogenic shock Current Visit: Yes Status: Acute Echo from 12/17 with LVEF 25-30%, moderately dilated LV, moderate LV diastolic dysfunction, mild mitral regurgitation CXR with worsening L pleural effusion, patient hypotensive requiring pressors. Repeat CXR this morning with mild improvement Troponin <0.03 and EKG unchanged from prior Repeat limited echocardiogram results pending Patient follows up with Dr. Sánchez, Cardiology and has pacemaker placement scheduled as outpatient Will consult Cardiology if patient has worsening LVEF. (3) Sepsis Current Visit: Yes Status: Acute Tachycardia and leukocytosis Likely due to aspiration pneumonia Repeat CXR this morning shows mildly improvement in left pleural effusion and left mid to lower lung airspace disease Lactate initially elevated at 2.5 and now resolved Blood cultures from 01/16 NTD Urine legionella and strep pneumoniae Ag negative Sputum culture pending Continue Cefepime, Doxycycline, vancomycin, day 2 and de-escelate tomorrow Continue levofed for hypotension and wean as tolerated Patient has cardiogenic shock and heart failure with EF of 25-30% and did not undergo repeat fluid resuscitation due to likely heart failure decompensation Patient will need speech therapy consultation once he is extubated. Qualifiers: Sepsis type: sepsis due to unspecified organism Qualified Code(s): A41.9 - Sepsis, unspecified organism (4) Encephalopathy Current Visit: Yes Status: Acute Likely metabolic encephalopathy, multifactorial due to hypercapnea and hypoxic respiratory failure, hyponatremia, pneumonia No Neurologic deficits Able to wake up patient from sedation and he follows commands CT head and MRI brain with no acute abnormalities Neurology recommendations appreciated. (5) Ischemic cardiomyopathy Current Visit: No Status: Chronic Systolic and diastolic heart failure with EF 25-30% Repeat echocardiogram results pending Plan as above (6) Aspiration pneumonia Current Visit: Yes Status: Acute CXR from today with worsening left pleural effusion and patchy airspace disease after intubation Repeat CXR slightly improved today Continue clindamycin, vancomycin, cefepime and de-escelate tomorrow Will need speech therapy consultation once extubated Sputum culture pending Qualifiers: Aspiration pneumonia type: unspecified Laterality: bilateral Lung l ocation: lower lobe of lung Qualified Code(s): J69.0 - Pneumonitis due to inhalation of food and vomit (7) Hyponatremia Current Visit: Yes Status: Acute 125 today Unclear etiology Urine osmolality 499, Urine Cr 49, urine sodium 69.4, urine potassium 29.9, cortisol 20.2 Continue salt tubes through NG tube Continue fluid restriction Monitor BMP Nephrology following appreciate their recommendations (8) Hypertension Current Visit: No Status: Chronic Home medications on hold as patient is hypotensive Continue levofed Qualifiers: Hypertension type: essential hypertension Qualified Code(s): I10 - Essential (primary) hypertension (9) Bilateral hydronephrosis Current Visit: Yes Status: Acute CT A/P Questionable mild bilateral hydronephrosis versus small parapelvic cysts. No obstructive calculi or mass. No ureteral dilation. Meraz catheter with good urine output UA with large blood, trace leukocyte esterase and no nitrites (10) Rectal mass Current Visit: Yes Status: Suspected CT abdomen with finding of a possible rectal mass GI on consult for colonoscopy once acute issues resolve (11) DVT prophylaxis Current Visit: Yes Status: Acute SQ heparin Subjective Principal diagnosis: acute on chronic respiratory failure Interval history: Patient initially being treated for hyponatremia and presented to the ICU yesterday for worsening altered mental status and acute on chronic respiratory failure. The patient was also hypotensive. A central line was placed in the right common femoral vein and pressors were started. The patient was intubated and started on mechanical ventilation. Patient likely has aspiration pneumonia. Today, hypercarbia improved. Coronavirus positive on respiratory panel. Patient had 150 mL of urine output yesterday. 525 mL of urine output this morning. One sedation turned down, the patient is able to open his eyes to his name and comes and. Moves all 4 extremities. No acute events overnight. We will attempt CPAP trial this morning. Objective PUL Vital signs: Last Vital Signs Temp 99.2 F 01/17/19 04:00 Pulse 88 01/17/19 07:00 Resp 16 01/17/19 07:00 BP 95/61 01/17/19 07:00 Pulse Ox 98 01/17/19 07:00 General appearance: no acute distress, other (sedated and intubated.) Eyes: nonicteric, other (normal conjunctiva) ENT: oropharynx moist, other (basal cell carcinoma on nose and right cheek) Effort: other (expiratory rhonchorous breath sounds, no wheezing or crackles) Cardiovascular: regular rate and rhythm, other (bilateral radial pulses equal) Gastrointestinal: normoactive bowel sounds, soft, non-distended Integumentary: other (right common femoral central line, warm, dry, intact) Extremities: no cyanosis, no edema Musculoskeletal: no deformities other (Able to open eyes to command and name. PERRL) other (Unable to assess as patient is sedated) Ventilator Settings Ventilator Settings: Ventilator Settings, Last 8 Hours Ventilator Tidal Volume 500 Setting Ventilator Tidal Volume 500 Setting Ventilator Tidal Volume 500 Setting Ventilator Tidal Volume 500 Setting Ventilator Tidal Volume 500 Setting Ventilator Tidal Volume 500 Setting Ventilator Tidal Volume 500 Setting Ventilator Tidal Volume 500 Setting Ventilator Tidal Volume 500 Setting Ventilator Tidal Volume 500 Setting Ventilator Respiratory Rate 16 Setting Ventilator Respiratory Rate 16 Setting Ventilator Respiratory Rate 16 Setting Ventilator Respiratory Rate 16 Setting Ventilator Respiratory Rate 16 Setting Ventilator Respiratory Rate 16 Setting Ventilator Respiratory Rate 16 Setting Ventilator Respiratory Rate 16 Setting Ventilator Respiratory Rate 16 Setting Ventilator Respiratory Rate 16 Setting Actual Respiratory Rate 16 Actual Respiratory Rate 16 Actual Respiratory Rate 16 Actual Respiratory Rate 16 Actual Respiratory Rate 16 Actual Respiratory Rate 16 Actual Respiratory Rate 17 Actual Respiratory Rate 16 Actual Respiratory Rate 16 Positive End Expiratory 8 Pressure Positive End Expiratory 8 Pressure Positive End Expiratory 8 Pressure Positive End Expiratory 8 Pressure Positive End Expiratory 8 Pressure Positive End Expiratory 8 Pressure Positive End Expiratory 8 Pressure Positive End Expiratory 8 Pressure Positive End Expiratory 8 Pressure Positive End Expiratory 8 Pressure Peak Inspiratory Airway 22 Pressure Peak Inspiratory Airway 22 Pressure Peak Inspiratory Airway 24 Pressure Peak Inspiratory Airway 24 Pressure Peak Inspiratory Airway 24 Pressure Peak Inspiratory Airway 26 Pressure Peak Inspiratory Airway 26 Pressure Peak Inspiratory Airway 26 Pressure Peak Inspiratory Airway 27 Pressure Results - Laboratory Findings CBC and BMP: 01/17/19 02:01 01/17/19 09:55 ABG ABG pH 7.51 pH Units (7.32-7.45) H 01/17/19 04:44 ABG pCO2 43 mmHg (35-45) 01/17/19 04:44 ABG pO2 125 mmHg (85-104) H 01/17/19 04:44 ABG O2 Saturation 99 % (95-98) H 01/17/19 04:44 PT/INR, D-dimer PT 10.1 Seconds (9.4-12.1) 01/16/19 14:10 Abnormal lab findings: Abnormal lab results WBC 26.5 K/mcL (4.3-11.1) H D 01/17/19 02:01 RBC 4.03 M/mcL (4.19-5.50) L 01/17/19 02:01 Hgb 11.8 g/dL (12.9-16.9) L 01/17/19 02:01 Hct 34.7 % (37.5-50.1) L 01/17/19 02:01 MPV 9.1 fL (9.4-12.4) L 01/17/19 02:01 Neutrophils # 12.1 K/mcL (1.6-8.9) H 01/16/19 14:10 Lymphocytes # 0.4 K/mcL (0.6-4.6) L 01/16/19 14:10 ABG pH 7.51 pH Units (7.32-7.45) H 01/17/19 04:44 ABG pO2 125 mmHg (85-104) H 01/17/19 04:44 ABG HCO3 35 mEq/L (21-27) H 01/17/19 04:44 ABG Total CO2 36 mEq/L (20-26) H 01/17/19 04:44 ABG O2 Saturation 99 % (95-98) H 01/17/19 04:44 ABG Base Excess 11 mEq/L (-2 to 3) H 01/17/19 04:44 Sodium 125 mEq/L (136-145) L 01/17/19 02:01 Chloride 87 mEq/L (98-107) L 01/17/19 02:01 Carbon Dioxide 33 mEq/L (23-29) H 01/17/19 02:01 Glucose 124 mg/dL (70-105) H 01/17/19 02:01 POC Glucose 102 mg/dL (70-99) H 01/16/19 23:22 Calculated Osmolality 264 (280-300) L 01/17/19 02:01 B-Natriuretic Peptide 336 pg/mL (Less than 100) H 01/15/19 03:20 Serum Total Protein 5.8 g/dL (6.4-8.9) L 01/16/19 14:10 Albumin 3.3 g/dL (3.5-5.7) L 01/16/19 14:10 TSH 0.302 mcIU/mL (0.340-5.600) L 01/15/19 03:20 Total T3 0.42 ng/mL (0.87-1.78) L 01/16/19 01:14 Urine Clarity Cloudy (Clear) A 01/16/19 13:10 Urine Protein 100 mg/dL (Neg-Trace) H 01/16/19 13:10 Urine Blood Large (Negative) H 01/16/19 13:10 Ur Leukocyte Esterase Trace (Negative) H 01/16/19 13:10 Urine Microscopic RBC TNTC per hpf (0-3) H 01/16/19 13:10 Urine Microscopic WBC 5-15 per hpf (0-3) H 01/16/19 13:10 Ur Squamous Epith Cells Many per lpf (None-Few) H 01/16/19 13:10 Ur Culture Indicated? NO. (NO) A 01/16/19 13:10 Coronavirus NL63 (PCR) DETECTED (Not Detect) A 01/16/19 22:11 - Microbiology Findings Microbiology Findings: Microbiology, Last 48 Hours 01/16/19 17:18 Blood Culture - Preliminary Peripheral Venipuncture Culture is incubating and being continuously monitored for growth. Final report to follow. 01/16/19 13:10 Legionella Antigen - Final Urine,Catheterized (Straight) Streptococcus pneumoniae Antigen (M - Final 01/16/19 12:34 Blood Culture - Preliminary Peripheral Venipuncture Culture is incubating and being continuously monitored for growth. Final report to follow. - Clinical Findings Intake & Output: Intake & Output 01/16/19 01/16/19 01/17/19 15:59 23:59 07:59 Intake Total 500 / 500 594 / 594 331.8 / 331.8 Output Total 200 / 200 100 / 100 275 / 275 Balance 300 / 300 494 / 494 56.8 / 56.8 Weight 89.8 kg 85.8 kg Consult Discharge Plan - Plan Referrals: Michael Gonzalez MD [Partnered Physician] - (Sent web request on 01-15-19 @ [id number]) Mika Stokes MD [Primary Care Provider] - 01/27/19 8:30 am <José Corey W - Last Filed: 01/17/19 13:47> Date of Encounter: 01/17/19 Objective PUL Vital signs: Last Vital Signs Temp 98.2 F 01/17/19 11:00 Pulse 81 01/17/19 13:00 Resp 12 01/17/19 13:00 BP 103/61 01/17/19 13:00 Pulse Ox 99 01/17/19 13:00 Ventilator Settings Ventilator Settings: Ventilator Settings, Last 8 Hours Ventilator Tidal Volume 500 Setting Ventilator Tidal Volume 500 Setting Ventilator Respiratory Rate 16 Setting Ventilator Respiratory Rate 16 Setting Actual Respiratory Rate 16 Actual Respiratory Rate 16 Positive End Expiratory 8 Pressure Positive End Expiratory 8 Pressure Peak Inspiratory Airway 22 Pressure Peak Inspiratory Airway 22 Pressure Results - Laboratory Findings CBC and BMP: 01/17/19 02:01 01/17/19 09:55 ABG ABG pH 7.51 pH Units (7.32-7.45) H 01/17/19 04:44 ABG pCO2 43 mmHg (35-45) 01/17/19 04:44 ABG pO2 125 mmHg (85-104) H 01/17/19 04:44 ABG O2 Saturation 99 % (95-98) H 01/17/19 04:44 PT/INR, D-dimer PT 10.1 Seconds (9.4-12.1) 01/16/19 14:10 Abnormal lab findings: Abnormal lab results WBC 26.5 K/mcL (4.3-11.1) H D 01/17/19 02:01 RBC 4.03 M/mcL (4.19-5.50) L 01/17/19 02:01 Hgb 11.8 g/dL (12.9-16.9) L 01/17/19 02:01 Hct 34.7 % (37.5-50.1) L 01/17/19 02:01 MPV 9.1 fL (9.4-12.4) L 01/17/19 02:01 Neutrophils # 12.1 K/mcL (1.6-8.9) H 01/16/19 14:10 Lymphocytes # 0.4 K/mcL (0.6-4.6) L 01/16/19 14:10 ABG pH 7.51 pH Units (7.32-7.45) H 01/17/19 04:44 ABG pO2 125 mmHg (85-104) H 01/17/19 04:44 ABG HCO3 35 mEq/L (21-27) H 01/17/19 04:44 ABG Total CO2 36 mEq/L (20-26) H 01/17/19 04:44 ABG O2 Saturation 99 % (95-98) H 01/17/19 04:44 ABG Base Excess 11 mEq/L (-2 to 3) H 01/17/19 04:44 Sodium 127 mEq/L (136-145) L 01/17/19 09:55 Chloride 87 mEq/L (98-107) L 01/17/19 02:01 Carbon Dioxide 33 mEq/L (23-29) H 01/17/19 02:01 Glucose 124 mg/dL (70-105) H 01/17/19 02:01 POC Glucose 119 mg/dL (70-99) H 01/17/19 11:42 Calculated Osmolality 264 (280-300) L 01/17/19 02:01 B-Natriuretic Peptide 336 pg/mL (Less than 100) H 01/15/19 03:20 Serum Total Protein 5.8 g/dL (6.4-8.9) L 01/16/19 14:10 Albumin 3.3 g/dL (3.5-5.7) L 01/16/19 14:10 TSH 0.302 mcIU/mL (0.340-5.600) L 01/15/19 03:20 Total T3 0.42 ng/mL (0.87-1.78) L 01/16/19 01:14 Urine Clarity Cloudy (Clear) A 01/16/19 13:10 Urine Protein 100 mg/dL (Neg-Trace) H 01/16/19 13:10 Urine Blood Large (Negative) H 01/16/19 13:10 Ur Leukocyte Esterase Trace (Negative) H 01/16/19 13:10 Urine Microscopic RBC TNTC per hpf (0-3) H 01/16/19 13:10 Urine Microscopic WBC 5-15 per hpf (0-3) H 01/16/19 13:10 Ur Squamous Epith Cells Many per lpf (None-Few) H 01/16/19 13:10 Ur Culture Indicated? NO. (NO) A 01/16/19 13:10 Coronavirus NL63 (PCR) DETECTED (Not Detect) A 01/16/19 22:11 - Microbiology Findings Microbiology Findings: Microbiology, Last 48 Hours 01/16/19 17:18 Blood Culture - Preliminary Peripheral Venipuncture Culture is incubating and being continuously monitored for growth. Final report to follow. 01/16/19 13:10 Legionella Antigen - Final Urine,Catheterized (Straight) Streptococcus pneumoniae Antigen (M - Final 01/16/19 12:34 Blood Culture - Preliminary Peripheral Venipuncture Culture is incubating and being continuously monitored for growth. Final report to follow. - Clinical Findings Intake & Output: Intake & Output 01/16/19 01/17/19 01/17/19 23:59 07:59 15:59 Intake Total 644.2 / 644.2 331.8 / 331.8 562 / 562 Output Total 100 / 100 400 / 400 1075 / 1075 Balance 544.2 / 544.2 -68.2 / -68.2 -513 / -513 Weight 85.8 kg 86.1 kg - Attending Attestation I examined this patient and my medical decision-making was reviewed with the Resident Physician. I agree with the documented findings, disposition and treatment plan as described except to the extent set forth below. We independently had [id number] contact with the patient I spent 32min of Critical Care time with this patient. It involved decision making of high complexity to assess, manipulate, and support vital organ system failure and/or to prevent further life threatening deterioration of the patient's condition. The time involved in the performance of separately reportable procedures was not counted toward critical care time. Patient seen and examined at bedside Labs, radiology, chart personally reviewed. Management was reviewed during multidisciplinary critical care rounds. 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 and able to follow simple commands but remains very lethargic Pulm: Acute on chronic hypoxic hypercapnic respiratory failure on vent secondary to CHF and pneumonia did relatively well today on CPAP trial but still requiring high settings and significant lethargy deferring extubation today until clinical course improves especially with worsening WBC count Cards: Cardiogenic shock remains on low-dose vasopressor we started diuresis which should improve hemodynamics echocardiogram is stable GI: GI prophylaxis while on vent Nutrition: Nothing by mouth for now Renal: Hyponatremia stable repeat BMP UOP Monitored, Cont to Trend sCr and monitor Electrolytes. ID: His being treated with broad-spectrum antibiotics for pneumonia likely aspiration component white count increased from yesterday but clinically appears to be improving we will recheck his lab work this afternoon remains afebrile Heme/Onc: DVT prophylaxis given Endo: Glucose Monitored Integ/MSK: Skin Care per routine ICU Nursing Protocol to prevent ulcers. Lines: All lines examined without evidence of infection : Dispo: Monitor in ICU for critical illness CODE: Full family updated at bedside
[2019-01-17] MEDS ORDERED: Artificial Tears SOLN 15 ML BOTTLE BOTH EYES PRN (07:39)
[2019-01-17] MEDS: Dexmedetomidine HCl 400 MCG/100 ML MLS IVC SCH (08:02)
[2019-01-17] MEDS: Clindamycin 900 MG/50 ML 900 MG/50 ML IV.SOLN IVPB SCH ×3 (08:20→23:52)
[2019-01-17] MEDS: Aspirin Enteric Coated 81 MG Tablet PO SCH (08:20)
[2019-01-17] MEDS: Finasteride 5 MG TABLET PO SCH (08:20)
[2019-01-17] MEDS: Chlorhexidine Rinse 15 ML MOUTHWASH MM SCH ×2 (08:20→21:32)
[2019-01-17] MEDS: Cefepime HCl 2,000 MG in Water for inj. (sterile) 20 ML 20 ML IVP SCH ×3 (08:21→23:47)
[2019-01-17] MEDS: Artificial Tears SOLN 15 ML BOTTLE BOTH EYES SCH ×5 (08:28→23:53)
[2019-01-17] MEDS ORDERED: Furosemide 40 MG/4 ML VIAL IVP ONE (09:13)
[2019-01-17] MEDS ORDERED: Ipratropium/Albuterol Neb 3 ML IH PRN (09:48)
[2019-01-17 16:24] LABS: Basophils % 0.2 %; Eosinophils # 0.1 K/mcL (0.0-0.6); Eosinophils % 0.4 %; Hematocrit 30.6 % (37.5-50.1); Hemoglobin 10.6 g/dL (12.9-16.9); Immature Granulocytes % 0.7 % (0-4); Lymphocytes # 0.6 K/mcL (0.6-4.6); Lymphocytes % 2.5 %; Mean Corpuscular HGB Conc 34.6 g/dL (31.6-35.5); Mean Corpuscular Hemoglobin 29.6 pg (28.0-33.3); Mean Corpuscular Volume 85.5 fL (83.0-100.0); Mean Platelet Volume 9.2 fL (9.4-12.4); Monocytes # 1.8 K/mcL (0.0-1.3); Monocytes % 8.1 %; Platelet Count 250 K/mcL (140-400); Red Blood Count 3.58 M/mcL (4.19-5.50); Red Cell Distribution Width 13.4 % (11.5-14.5); Segmented Neutrophils % 88.1 %
[2019-01-17 16:42] LABS: BUN/Creatinine Ratio 28 (6-26); Blood Urea Nitrogen 24 mg/dL (8-23); Carbon Dioxide 34 mEq/L (23-29); Chloride 88 mEq/L (98-107); Glucose 119 mg/dL (70-105); Osmolality,Calculated 271 (280-300); Potassium 3.6 mEq/L (3.5-5.1); Sodium 128 mEq/L (136-145); eGFR For Non-African Americans > 60 (> 60)
[2019-01-17] MEDS: FentaNYL (PF) 1,000 MCG in 0.9 % Sodium Chloride 80 ML IVC SCH (20:37)
--- NOTE | 2019-01-17 23:57 | Nephrology Progress Note ---
Date of Encounter: 01/17/19 Time of Encounter: 12:00 - Assessment and Plan (1) Acute respiratory failure with hypoxia and hypercapnia Current Visit: Yes Status: Acute vent management per primary team (2) Hyponatremia Current Visit: Yes Status: Acute Sodium remains fairly stable with lastest at 127 Continue salt tabs via ngt Continue to limit fluids if possible review of prior sodium level show 124 and 129 last month suggesting chronicity or at very least subacute (3) Bilateral hydronephrosis Current Visit: Yes Status: Acute mild on CT but UOP at 1200cc in the past 24hrs no intervention needed at this time Per family, history of BPH noted (4) Ischemic cardiomyopathy Current Visit: No Status: Chronic (5) Hypertension Current Visit: No Status: Chronic Qualifiers: Hypertension type: essential hypertension Qualified Code(s): I10 - Essential (primary) hypertension (6) BPH (benign prostatic hyperplasia) Current Visit: No Status: Chronic Qualifiers: Lower urinary tract symptom detail: unspecified Subjective Principal diagnosis: acute on chronic respiratory failure Interval history: Pt seen and examined still intubated and sedated with no overnight issues per nurse Objective - Vital Signs Vital signs: Vital Signs Temp Pulse Resp BP Pulse Ox 01/17/19 23:00 115 13 90/64 92 01/17/19 22:18 13 93 01/17/19 22:00 113 13 99/61 98 01/17/19 21:00 90 12 99/61 98 01/17/19 20:15 93 01/17/19 20:00 99.5 F 93 12 112/67 96 01/17/19 19:58 12 98 01/17/19 19:00 93 12 93/61 98 01/17/19 18:00 91 12 107/59 96 01/17/19 17:19 16 120/70 99 01/17/19 17:00 99 14 115/66 99 01/17/19 16:00 98.6 F 84 14 95/64 98 01/17/19 15:28 12 87/66 99 01/17/19 15:00 98.6 F 83 12 94/64 98 01/17/19 14:00 85 12 99/61 99 01/17/19 13:15 12 101/62 99 01/17/19 13:00 81 12 103/61 99 01/17/19 12:00 80 12 107/70 99 01/17/19 11:22 16 70/50 100 01/17/19 11:00 98.2 F 84 14 91/52 95 01/17/19 10:00 84 20 116/73 97 01/17/19 09:00 80 20 132/79 99 01/17/19 08:59 12 132/79 99 01/17/19 08:11 89 01/17/19 08:00 99.2 F 89 12 98/68 99 01/17/19 07:26 89 01/17/19 07:20 16 84/54 96 01/17/19 07:10 99.2 F 01/17/19 07:00 88 16 95/61 98 01/17/19 06:00 80 16 92/63 99 01/17/19 05:00 84 16 93/56 90 01/17/19 04:03 16 100 01/17/19 04:00 99.2 F 79 16 109/62 99 01/17/19 03:00 94 16 94/58 100 01/17/19 02:00 97 17 89/54 98 01/17/19 01:00 89 16 75/56 99 01/17/19 00:01 98.9 F 01/17/19 00:00 99 16 92/63 97 Intake and Output 01/17/19 01/17/19 01/17/19 07:59 15:59 23:59 Intake Total 331.8 / 331.8 613 / 613 340 / 340 Output Total 400 / 400 1625 / 1625 500 / 500 Balance -68.2 / -68.2 -1012 / -1012 -160 / -160 Intake: IV Fluids 331.8 / 331.8 613 / 613 340 / 340 PRECEDEX Premix 400 mcg In 100 / ml @ 0.3 MCG/KG/HR 6.735 mls/hr IVC .[id number] [facility] Rx#: [id number] FentaNYL (PF) 1,000 MCG In 0.9 21 / 21 0 / 0 % Sodium Chloride 80 ML @ 50 MCG/HR 5 mls/hr IVC CONT [facility] Rx #:[id number] Versed 50 MG In 0.9 % Sodium 27.8 / 27.8 5 / 5 0 / 0 Chloride 90 ML @ 2 MG/HR 4 mls/ hr IVC CONT [facility] Rx#:[id number] Levophed 4 MG In Dextrose 5% 254 / 254 254 / 254 250 ML @ 8 MCG/MIN 30.48 mls/hr IVC CONT [facility] Rx#:[id number] Maxipime 2,000 MG In Water for 20 / 20 40 / 40 inj. (sterile) 20 ML @ 300 mls/ hr IVP Q8HR [facility] Rx#:[id number] Cleocin Premix 900 MG/50 ML 900 50 / 50 50 / 50 50 / 50 mg In 50 ml @ 50 mls/hr IVPB Q8HR [facility] Rx#:[id number] Vancocin 1,000 MG In 0.9 % 250 / 250 250 / 250 Sodium Chloride 250 ML @ 166. 667 mls/hr IVPB Q12H [facility] Rx#: [id number] Oral 0 / 0 Output: Catheter 300 / 300 1625 / 1625 250 / 250 Gastric Drainage 100 / 100 0 / 0 250 / 250 Other: Weight 85.8 kg 86.1 kg Blood Glucose* 122 103 Patient Weight 01/17/19 23:59 Weight 86.1 kg - Lab 01/17/19 16:05 01/17/19 16:05 Most recent lab results ABG pH 7.51 pH Units (7.32-7.45) H 01/17/19 04:44 ABG pCO2 43 mmHg (35-45) 01/17/19 04:44 ABG pO2 125 mmHg (85-104) H 01/17/19 04:44 ABG HCO3 35 mEq/L (21-27) H 01/17/19 04:44 ABG O2 Saturation 99 % (95-98) H 01/17/19 04:44 Calcium 9.0 mg/dL (8.6-10.3) 01/17/19 16:05 Phosphorus 3.8 mg/dL (2.7-4.5) 01/16/19 01:14 Magnesium 1.9 mg/dL (1.6-2.6) 01/16/19 14:10 Urine Creatinine 49 mg/dL 01/14/19 14:45 Urine Sodium 69.4 mEq/L 01/14/19 14:45 Consult Discharge Plan - Plan Referrals: Michael Gonzalez MD [Partnered Physician] - (Sent web request on 01-15-19 @ [phone]) Mika Stokes MD [Primary Care Provider] - 01/27/19 8:30 am
[2019-01-18 03:59] LABS: Basophils % 0.2 %; Mean Platelet Volume 9.2 fL (9.4-12.4)
[2019-01-18 04:01] LABS: Basophils # 0.1 K/mcL (0.0-0.2); Eosinophils # 0.1 K/mcL (0.0-0.6); Eosinophils % 0.5 %; Hemoglobin 10.7 g/dL (12.9-16.9); Lymphocytes % 1.6 %; Mean Corpuscular HGB Conc 34.5 g/dL (31.6-35.5); Mean Corpuscular Hemoglobin 29.8 pg (28.0-33.3); Mean Corpuscular Volume 86.4 fL (83.0-100.0); Monocytes # 1.8 K/mcL (0.0-1.3); Monocytes % 6.3 %; Neutrophils # 25.5 K/mcL (1.6-8.9); Platelet Count 244 K/mcL (140-400); Red Blood Count 3.59 M/mcL (4.19-5.50); Red Cell Distribution Width 13.9 % (11.5-14.5); Segmented Neutrophils % 90.4 %
[2019-01-18 04:08] LABS: Lymphocytes # 0.5 K/mcL (0.6-4.6)
[2019-01-18 04:16] LABS: BUN/Creatinine Ratio 35 (6-26); Blood Urea Nitrogen 26 mg/dL (8-23); Carbon Dioxide 31 mEq/L (23-29); Chloride 90 mEq/L (98-107); Glucose 109 mg/dL (70-105); Magnesium 1.8 mg/dL (1.6-2.6); Osmolality,Calculated 271 (280-300); Phosphorous 1.6 mg/dL (2.7-4.5); Potassium 3.5 mEq/L (3.5-5.1); Sodium 128 mEq/L (136-145); eGFR For Non-African Americans > 60 (> 60)
[2019-01-18 04:26] LABS: Platelet Estimate Normal (Normal)
[2019-01-18] MEDS: Artificial Tears SOLN 15 ML BOTTLE BOTH EYES SCH ×5 (04:29→20:38)
[2019-01-18 05:18] LABS: ABG Base Excess 10 mEq/L (-2 to 3); ABG HCO3 34 mEq/L (21-27); ABG Oxygen Saturation 90 % (95-98); ABG PCO2 43 mmHg (35-45); ABG PH 7.51 pH Units (7.32-7.45); ABG PO2 54 mmHg (85-104); ABG TCO2 35 mEq/L (20-26); Blood Gas Modality ASSIST CONTROL; Blood Gas PEEP 5 cm H2O; Blood Gas Respiration Rate 12; Blood Gas VT 500 cc
[2019-01-18] MEDS: *HR* Heparin 5,000 UNIT/ML VIAL SQ SCH ×2 (05:19→15:55)
[2019-01-18] MEDS: Cefepime HCl 2,000 MG in Water for inj. (sterile) 20 ML 20 ML IVP SCH (07:18)
[2019-01-18] MEDS: Chlorhexidine Rinse 15 ML MOUTHWASH MM SCH ×2 (07:18→20:34)
[2019-01-18] MEDS: Clindamycin 900 MG/50 ML 900 MG/50 ML IV.SOLN IVPB SCH (07:19)
[2019-01-18] MEDS: Finasteride 5 MG TABLET PO SCH (07:19)
[2019-01-18] MEDS ORDERED: Isovue-370 500 ML BOTTLE IVP ONE ×2 (07:21→08:14)
[2019-01-18] MEDS: Aspirin Enteric Coated 81 MG Tablet PO SCH (07:34)
--- NOTE | 2019-01-18 08:15 | Pulmonology Progress Note ---
<Malathi Cullen Carmen - Last Filed: 01/18/19 13:54> Date of Encounter: 01/18/19 Time of Encounter: 08:05 Assessment and Plan (1) Acute respiratory failure with hypoxia and hypercapnia Current Visit: Yes Status: Acute Emergent intubation and mechanical ventilation on 01/16 Currently undergoing CPAP trial and following commands. Will extubate later today or tomorrow Acute respiratory failure likely due to sepsis from pneumonia, likely aspirati on, hypercapnea, progressing left pleural effusion CT chest from today shows multifocal airspace disease L>R, increased secondary to pneumonia and small bilateral pleural effusions Positive coronavirus Plan for bronchoscopy Continue daily ABG and adjust vent settings as appropriate Continue vancomycin and discontinue Cefepime and clinda Start meropenem Sputum culture pending Continue levophed for hypotension and wean as tolerated Will try CPAP trial and possible extubation tomorrow (2) Sepsis Current Visit: Yes Status: Acute with hypotension Secondary to pneumonia Leukocytosis worsening and lactic acidosis resolved CT chest as above. CT A/P with decreased rectal wall thickening and R foot CT without abscess or osteomyelitis Blood cultures from 01/16 NTD Urine legionella and strep pneumoniae Ag negative Sputum culture pending Continue Vancomycin, day 3 and add meropenem Continue levophed for hypotension and wean as tolerated Qualifiers: Sepsis type: sepsis due to unspecified organism Qualified Code(s): A41.9 - Sepsis, unspecified organism (3) Cardiogenic shock Current Visit: Yes Status: Suspected Echo from 12/17 with LVEF 25-30%, moderately dilated LV, moderate LV diastolic dysfunction, mild mitral regurgitation Repeat echocardiogram from 01/16 with LVEF 25-30%, severe global LV systolic dysfunction and bundle branch block CT chest from today with small bilateral pleural effusions Troponin <0.03 and EKG unchanged from prior Patient follows up with Dr. Sánchez, Cardiology and has pacemaker placement scheduled as outpatient (4) Encephalopathy Current Visit: Yes Status: Acute Likely metabolic encephalopathy, multifactorial due to hypercapnia and hypoxic respiratory failure, hyponatremia, pneumonia No Neurologic deficits, patient following commands CT head and MRI brain with no acute abnormalities Neurology recommendations appreciated. (5) Aspiration pneumonia Current Visit: Yes Status: Acute Bronchoscopy today Continue vancomycin and add meropenem Will need speech therapy consultation once extubated Sputum culture pending Qualifiers: Aspiration pneumonia type: unspecified Laterality: bilateral Lung location: lower lobe of lung Qualified Code(s): J69.0 - Pneumonitis due to inhalation of food and vomit (6) Ischemic cardiomyopathy Current Visit: No Status: Chronic Systolic and diastolic heart failure with EF 25-30% Echocardiogram with unchanged EF. Plan as above (7) Hyponatremia Current Visit: Yes Status: Acute 128 today Unclear etiology Urine osmolality 499, Urine Cr 49, urine sodium 69.4, urine potassium 29.9, cortisol 20.2 Continue with salt tubes through NG tube Continue fluid restriction Appreciate Nephrology recommendations Continue to monitor BMP (8) Hypertension Current Visit: No Status: Chronic Home medications on hold as patient is hypotensive Continue levophed and wean as tolerated Qualifiers: Hypertension type: essential hypertension Qualified Code(s): I10 - Essential (primary) hypertension (9) Rectal mass Current Visit: Yes Status: Suspected CT abdomen with finding of a possible rectal mass GI on consult for colonoscopy once acute issues resolve Repeat CT A/P from today with mild decrease in rectal wall thickening (10) DVT prophylaxis Current Visit: Yes Status: Acute SQ heparin Subjective Principal diagnosis: acute on chronic respiratory failure Interval history: Patient initially being treated for hyponatremia and presented to the ICU on 01/16/19 for worsening altered mental status and acute on chronic respiratory failure. The patient was also hypotensive. A central line was placed in the right common femoral vein and pressors were started. The patient was intubated and started on mechanical ventilation. Patient likely has aspiration pneumonia and on IV cefepime, clindamycin and vancomycin. Hypercapnia improving. Coronavirus positive on respiratory panel. Patient remains on levophed. On CPAP trial and following commands. 2525 cc output yesterday. Leukocytosis worsening. Will obtain CT chest, abdomen and pelvis with IV contrast and right foot to further evaluate for other sources of infection Objective PUL Vital signs: Last Vital Signs Temp 99.8 F H 01/18/19 04:12 Pulse 100 01/18/19 07:00 Resp 14 01/18/19 07:00 BP 114/67 01/18/19 07:00 Pulse Ox 94 01/18/19 07:00 General appearance: no acute distress, other (intubated, following commands) Eyes: nonicteric, other (normal conjunctiva) Neck: supple, no JVD Effort: other (diminished breath sounds bilaterally with rales L>R) Cardiovascular: regular rate and rhythm Gastrointestinal: normoactive bowel sounds, soft, non-tender, non-distended Integumentary: other (erythema and warmth of dorsal portion of right foot) Extremities: no cyanosis, no edema, pulses normal (bilateral dorsalis pedis pulses intact) Musculoskeletal: no deformities CN II-XII normal, other (following commands, PERRL) mood appropriate, affect normal, other (not agitated) Ventilator Settings Ventilator Settings: Ventilator Settings, Last 8 Hours Ventilator Tidal Volume 500 Setting Ventilator Tidal Volume 500 Setting Ventilator Tidal Volume 500 Setting Ventilator Tidal Volume 500 Setting Ventilator Tidal Volume 500 Setting Ventilator Tidal Volume 500 Setting Ventilator Tidal Volume 500 Setting Ventilator Tidal Volume 500 Setting Ventilator Respiratory Rate 12 Setting Ventilator Respiratory Rate 12 Setting Ventilator Respiratory Rate 12 Setting Ventilator Respiratory Rate 12 Setting Ventilator Respiratory Rate 12 Setting Ventilator Respiratory Rate 12 Setting Ventilator Respiratory Rate 12 Setting Ventilator Respiratory Rate 12 Setting Actual Respiratory Rate 14 Actual Respiratory Rate 14 Actual Respiratory Rate 13 Actual Respiratory Rate 12 Actual Respiratory Rate 14 Actual Respiratory Rate 14 Actual Respiratory Rate 13 Actual Respiratory Rate 16 Actual Respiratory Rate 12 Positive End Expiratory 5 Pressure Positive End Expiratory 5 Pressure Positive End Expiratory 5 Pressure Positive End Expiratory 5 Pressure Positive End Expiratory 5 Pressure Positive End Expiratory 5 Pressure Positive End Expiratory 5 Pressure Positive End Expiratory 5 Pressure Positive End Expiratory 5 Pressure Positive End Expiratory 5 Pressure Peak Inspiratory Airway 15 Pressure Peak Inspiratory Airway 15 Pressure Peak Inspiratory Airway 17 Pressure Peak Inspiratory Airway 17 Pressure Peak Inspiratory Airway 17 Pressure Peak Inspiratory Airway 21 Pressure Peak Inspiratory Airway 17 Pressure Peak Inspiratory Airway 19 Pressure Peak Inspiratory Airway 20 Pressure Results - Laboratory Findings CBC and BMP: 01/18/19 03:46 01/18/19 03:46 ABG ABG pH 7.51 pH Units (7.32-7.45) H 01/18/19 05:15 ABG pCO2 43 mmHg (35-45) 01/18/19 05:15 ABG pO2 54 mmHg (85-104) L 01/18/19 05:15 ABG O2 Saturation 90 % (95-98) L 01/18/19 05:15 PT/INR, D-dimer PT 10.1 Seconds (9.4-12.1) 01/16/19 14:10 Abnormal lab findings: Abnormal lab results WBC 28.2 K/mcL (4.3-11.1) H 01/18/19 03:46 RBC 3.59 M/mcL (4.19-5.50) L 01/18/19 03:46 Hgb 10.7 g/dL (12.9-16.9) L 01/18/19 03:46 Hct 31.0 % (37.5-50.1) L 01/18/19 03:46 MPV 9.2 fL (9.4-12.4) L 01/18/19 03:46 Neutrophils # 25.5 K/mcL (1.6-8.9) H 01/18/19 03:46 Lymphocytes # 0.5 K/mcL (0.6-4.6) L 01/18/19 03:46 Monocytes # 1.8 K/mcL (0.0-1.3) H 01/18/19 03:46 ABG pH 7.51 pH Units (7.32-7.45) H 01/18/19 05:15 ABG pO2 54 mmHg (85-104) L 01/18/19 05:15 ABG HCO3 34 mEq/L (21-27) H 01/18/19 05:15 ABG Total CO2 35 mEq/L (20-26) H 01/18/19 05:15 ABG O2 Saturation 90 % (95-98) L 01/18/19 05:15 ABG Base Excess 10 mEq/L (-2 to 3) H 01/18/19 05:15 Sodium 128 mEq/L (136-145) L 01/18/19 03:46 Chloride 90 mEq/L (98-107) L 01/18/19 03:46 Carbon Dioxide 31 mEq/L (23-29) H 01/18/19 03:46 BUN 26 mg/dL (8-23) H 01/18/19 03:46 BUN/Creatinine Ratio 35 (6-26) H 01/18/19 03:46 Glucose 109 mg/dL (70-105) H 01/18/19 03:46 Calculated Osmolality 271 (280-300) L 01/18/19 03:46 Phosphorus 1.6 mg/dL (2.7-4.5) L 01/18/19 03:46 B-Natriuretic Peptide 336 pg/mL (Less than 100) H 01/15/19 03:20 Serum Total Protein 5.8 g/dL (6.4-8.9) L 01/16/19 14:10 Albumin 3.3 g/dL (3.5-5.7) L 01/16/19 14:10 TSH 0.302 mcIU/mL (0.340-5.600) L 01/15/19 03:20 Total T3 0.42 ng/mL (0.87-1.78) L 01/16/19 01:14 Urine Clarity Cloudy (Clear) A 01/16/19 13:10 Urine Protein 100 mg/dL (Neg-Trace) H 01/16/19 13:10 Urine Blood Large (Negative) H 01/16/19 13:10 Ur Leukocyte Esterase Trace (Negative) H 01/16/19 13:10 Urine Microscopic RBC TNTC per hpf (0-3) H 01/16/19 13:10 Urine Microscopic WBC 5-15 per hpf (0-3) H 01/16/19 13:10 Ur Squamous Epith Cells Many per lpf (None-Few) H 01/16/19 13:10 Ur Culture Indicated? NO. (NO) A 01/16/19 13:10 Vancomycin Trough 18 mcg/mL (5-10) H 01/18/19 03:46 Coronavirus NL63 (PCR) DETECTED (Not Detect) A 01/16/19 22:11 - Microbiology Findings Microbiology Findings: Microbiology, Last 48 Hours 01/16/19 17:18 Blood Culture - Preliminary Peripheral Venipuncture Culture is incubating and being continuously monitored for growth. Final report to follow. 01/16/19 13:10 Legionella Antigen - Final Urine,Catheterized (Straight) Streptococcus pneumoniae Antigen (M - Final 01/16/19 12:34 Blood Culture - Preliminary Peripheral Venipuncture Culture is incubating and being continuously monitored for growth. Final report to follow. - Clinical Findings Intake & Output: Intake & Output 01/17/19 01/18/19 01/18/19 23:59 07:59 15:59 Intake Total 340 / 340 353.2 / 353.2 Output Total 500 / 500 325 / 325 Balance -160 / -160 28.2 / 28.2 Weight 84.4 kg Consult Discharge Plan - Plan Referrals: Michael Gonzalez MD [Partnered Physician] - (Sent web request on 01-15-19 @ [phone]) Mika Stokes MD [Primary Care Provider] - 01/27/19 8:30 am <José Corey W - Last Filed: 01/18/19 16:06> Date of Encounter: 01/18/19 Objective PUL Vital signs: Last Vital Signs Temp 98.1 F 01/18/19 12:26 Pulse 74 01/18/19 14:00 Resp 15 01/18/19 14:00 BP 100/71 01/18/19 14:00 Pulse Ox 95 01/18/19 14:00 Ventilator Settings Ventilator Settings: Ventilator Settings, Last 8 Hours Ventilator Tidal Volume 500 Setting Ventilator Tidal Volume 500 Setting Ventilator Tidal Volume 500 Setting Ventilator Tidal Volume 500 Setting Ventilator Tidal Volume 500 Setting Ventilator Tidal Volume 500 Setting Ventilator Tidal Volume 500 Setting Ventilator Tidal Volume 500 Setting Ventilator Tidal Volume 500 Setting Ventilator Tidal Volume 500 Setting Ventilator Respiratory Rate 12 Setting Ventilator Respiratory Rate 12 Setting Ventilator Respiratory Rate 12 Setting Ventilator Respiratory Rate 12 Setting Ventilator Respiratory Rate 12 Setting Ventilator Respiratory Rate 12 Setting Ventilator Respiratory Rate 12 Setting Ventilator Respiratory Rate 12 Setting Ventilator Respiratory Rate 12 Setting Ventilator Respiratory Rate 12 Setting Actual Respiratory Rate 14 Actual Respiratory Rate 15 Actual Respiratory Rate 12 Actual Respiratory Rate 14 Actual Respiratory Rate 12 Actual Respiratory Rate 13 Actual Respiratory Rate 12 Actual Respiratory Rate 12 Actual Respiratory Rate 12 Actual Respiratory Rate 13 Actual Respiratory Rate 13 Actual Respiratory Rate 14 Positive End Expiratory 5 Pressure Positive End Expiratory 5 Pressure Positive End Expiratory 5 Pressure Positive End Expiratory 5 Pressure Positive End Expiratory 5 Pressure Positive End Expiratory 5 Pressure Positive End Expiratory 5 Pressure Positive End Expiratory 5 Pressure Positive End Expiratory 5 Pressure Positive End Expiratory 5 Pressure Positive End Expiratory 5 Pressure Peak Inspiratory Airway 21 Pressure Peak Inspiratory Airway 22 Pressure Peak Inspiratory Airway 22 Pressure Peak Inspiratory Airway 20 Pressure Peak Inspiratory Airway 21 Pressure Peak Inspiratory Airway 21 Pressure Peak Inspiratory Airway 21 Pressure Peak Inspiratory Airway 21 Pressure Peak Inspiratory Airway 20 Pressure Peak Inspiratory Airway 15 Pressure Peak Inspiratory Airway 15 Pressure Results - Laboratory Findings CBC and BMP: 01/18/19 03:46 01/18/19 03:46 ABG ABG pH 7.51 pH Units (7.32-7.45) H 01/18/19 05:15 ABG pCO2 43 mmHg (35-45) 01/18/19 05:15 ABG pO2 54 mmHg (85-104) L 01/18/19 05:15 ABG O2 Saturation 90 % (95-98) L 01/18/19 05:15 PT/INR, D-dimer PT 10.1 Seconds (9.4-12.1) 01/16/19 14:10 Abnormal lab findings: Abnormal lab results WBC 28.2 K/mcL (4.3-11.1) H 01/18/19 03:46 RBC 3.59 M/mcL (4.19-5.50) L 01/18/19 03:46 Hgb 10.7 g/dL (12.9-16.9) L 01/18/19 03:46 Hct 31.0 % (37.5-50.1) L 01/18/19 03:46 MPV 9.2 fL (9.4-12.4) L 01/18/19 03:46 Neutrophils # 25.5 K/mcL (1.6-8.9) H 01/18/19 03:46 Lymphocytes # 0.5 K/mcL (0.6-4.6) L 01/18/19 03:46 Monocytes # 1.8 K/mcL (0.0-1.3) H 01/18/19 03:46 ABG pH 7.51 pH Units (7.32-7.45) H 01/18/19 05:15 ABG pO2 54 mmHg (85-104) L 01/18/19 05:15 ABG HCO3 34 mEq/L (21-27) H 01/18/19 05:15 ABG Total CO2 35 mEq/L (20-26) H 01/18/19 05:15 ABG O2 Saturation 90 % (95-98) L 01/18/19 05:15 ABG Base Excess 10 mEq/L (-2 to 3) H 01/18/19 05:15 Sodium 128 mEq/L (136-145) L 01/18/19 03:46 Chloride 90 mEq/L (98-107) L 01/18/19 03:46 Carbon Dioxide 31 mEq/L (23-29) H 01/18/19 03:46 BUN 26 mg/dL (8-23) H 01/18/19 03:46 BUN/Creatinine Ratio 35 (6-26) H 01/18/19 03:46 Glucose 109 mg/dL (70-105) H 01/18/19 03:46 POC Glucose 100 mg/dL (70-99) H 01/18/19 11:47 Calculated Osmolality 271 (280-300) L 01/18/19 03:46 Phosphorus 1.6 mg/dL (2.7-4.5) L 01/18/19 03:46 B-Natriuretic Peptide 336 pg/mL (Less than 100) H 01/15/19 03:20 Serum Total Protein 5.8 g/dL (6.4-8.9) L 01/16/19 14:10 Albumin 3.3 g/dL (3.5-5.7) L 01/16/19 14:10 TSH 0.302 mcIU/mL (0.340-5.600) L 01/15/19 03:20 Total T3 0.42 ng/mL (0.87-1.78) L 01/16/19 01:14 Urine Clarity Cloudy (Clear) A 01/16/19 13:10 Urine Protein 100 mg/dL (Neg-Trace) H 01/16/19 13:10 Urine Blood Large (Negative) H 01/16/19 13:10 Ur Leukocyte Esterase Trace (Negative) H 01/16/19 13:10 Urine Microscopic RBC TNTC per hpf (0-3) H 01/16/19 13:10 Urine Microscopic WBC 5-15 per hpf (0-3) H 01/16/19 13:10 Ur Squamous Epith Cells Many per lpf (None-Few) H 01/16/19 13:10 Ur Culture Indicated? NO. (NO) A 01/16/19 13:10 Vancomycin Trough 18 mcg/mL (5-10) H 01/18/19 03:46 Coronavirus NL63 (PCR) DETECTED (Not Detect) A 01/16/19 22:11 - Microbiology Findings Microbiology Findings: Microbiology, Last 48 Hours 01/16/19 17:18 Blood Culture - Preliminary Peripheral Venipuncture Culture is incubating and being continuously monitored for growth. Final report to follow. 01/16/19 13:10 Legionella Antigen - Final Urine,Catheterized (Straight) Streptococcus pneumoniae Antigen (M - Final 01/16/19 12:34 Blood Culture - Preliminary Peripheral Venipuncture Culture is incubating and being continuously monitored for growth. Final report to follow. - Clinical Findings Intake & Output: Intake & Output 01/17/19 01/18/19 01/18/19 23:59 07:59 15:59 Intake Total 340 / 340 353.2 / 353.2 1531 / 1531 Output Total 500 / 500 325 / 325 550 / 550 Balance -160 / -160 28.2 / 28.2 981 / 981 Weight 84.4 kg - Attending Attestation I examined this patient and my medical decision-making was reviewed with the Resident Physician. I agree with the documented findings, disposition and treatment plan as described except to the extent set forth below. We independently had [id number] contact with the patient I spent 33min of Critical Care time with this patient. It involved decision making of high complexity to assess, manipulate, and support vital organ system failure and/or to prevent further life threatening deterioration of the patient's condition. The time involved in the performance of separately reportable procedures was not counted toward critical care time. Patient seen and examined at bedside Labs, radiology, chart personally reviewed. Management was reviewed during multidisciplinary critical care rounds. CLINICAL PATHOLOGIST: Patient is awake he is able to follow commands he is on minimal sedation for comfort while on vent Pulm: Hypoxemic hypercapnic respiratory failure remains on vent but with susceptible gas exchange well on CPAP trial today but I am hesitant to liberate him from the vent because CT scan shows worsening pneumonia and will need bronchoscopy because of the rising white count I suspect drug resistant organism Cards: Blood pressure has been borderline low occasionally he will require low- dose infusion of the levo fed this is thought to be combination of factors including sepsis as well as his underlying heart failure complicated by sedation there is no overt evidence of shock physiology GI: GI prophylaxis given Nutrition: Nothing by mouth for now Renal: UOP Monitored, Cont to Trend sCr and monitor Electrolytes. ID: He is on broad-spectrum antimicrobials which should cover both hospital- acquired organisms and aspiration/anaerobes rising white count and CT scan n otable for persistent left-sided opacity I suspect patient has drug-resistant organism and will need bronchoscopy. For this reason I will broaden him to include vancomycin and meropenem Heme/Onc: DVT prophylaxis given Endo: Glucose Monitored Integ/MSK: Skin Care per routine ICU Nursing Protocol to prevent ulcers. Lines: All lines examined without evidence of infection : Dispo: Continue to monitor the ICU CODE: Full code I did update the patient's next can at bedside and they gave consent for bronchoscopy (daughter)
[2019-01-18] MEDS ORDERED: Furosemide 40 MG/4 ML VIAL IVP ONE (09:44)
[2019-01-18] MEDS: Pantoprazole 40 MG VIAL IVP SCH (09:51)
[2019-01-18] MEDS ORDERED: Potassium Chloride Elixir 20 MEQ/15 ML UDC PO ONE (11:10)
[2019-01-18 11:26] LABS: Lipase 12 Units/L (11-82)
[2019-01-18] MEDS: FentaNYL (PF) 1,000 MCG in 0.9 % Sodium Chloride 80 ML IVC SCH (12:33)
[2019-01-18] MEDS: Dexmedetomidine HCl 400 MCG/100 ML MLS IVC SCH (12:34)
--- NOTE | 2019-01-18 13:25 | Pre-Sedation Evaluation ---
Pre-sedation evaluation - Pre-sedation checklist Date of procedure: 01/16/19 Procedure: Brochoscopy Recent Vitals: Last Vital Signs Temp 98.1 F 01/18/19 12:26 Pulse 83 01/18/19 13:00 Resp 12 01/18/19 13:00 BP 67/50 01/18/19 13:00 Pulse Ox 94 01/18/19 13:00 H&P (including ROS) documented in medical record: Yes Previous reaction to sedatives/anesthetics: No Dietary Status: NPO after Midnight Possible difficult airway: No ASA Classification *see protocol: CLASS III-Severe systemic disease Plan of Care: Pt appropriate candidate for procedure/moderate/conscious sedation, Risks/benefits of procedure/sedation discussed w/ patient/family
[2019-01-18] MEDS: Meropenem 1,000 MG in Water for inj. (sterile) 20 ML 10 ML IVP SCH (15:01)
[2019-01-18] MEDS: Norepinephrine 4 MG in D5% in Water 250 ML IVC SCH (15:54)
[2019-01-18 18:30] LABS: Appearance of Body Fluid Cloudy (Clear); Volume of Body Fluid 30 mL
--- NOTE | 2019-01-18 23:43 | Nephrology Progress Note ---
Date of Encounter: 01/18/19 Time of Encounter: 12:00 - Assessment and Plan (1) Acute respiratory failure with hypoxia and hypercapnia Current Visit: Yes Status: Acute vent management per primary team (2) Hyponatremia Current Visit: Yes Status: Acute Sodium remains fairly stable with lastest at 128 Continue salt tabs via ngt Continue to limit fluids if possible keep iv medsin saline if possible review of prior sodium level show 124 and 129 last month suggesting chronicity or at very least subacute will signoff, please reconsult prn (3) Bilateral hydronephrosis Current Visit: Yes Status: Acute (4) Ischemic cardiomyopathy Current Visit: No Status: Chronic (5) Hypertension Current Visit: No Status: Chronic Qualifiers: Hypertension type: essential hypertension Qualified Code(s): I10 - Essential (primary) hypertension (6) BPH (benign prostatic hyperplasia) Current Visit: No Status: Chronic Qualifiers: Lower urinary tract symptom detail: unspecified Subjective Principal diagnosis: acute on chronic respiratory failure Interval history: Pt seen and examined still intubated and sedated with no overnight issues per nurse Objective - Vital Signs Vital signs: Vital Signs Temp Pulse Pulse Pulse Pulse Resp Resp 01/18/19 23:00 77 12 01/18/19 22:00 77 13 01/18/19 21:31 16 01/18/19 21:00 80 13 01/18/19 20:32 98.9 F 01/18/19 20:00 77 14 01/18/19 19:38 25 01/18/19 19:20 82 13 01/18/19 18:00 79 14 01/18/19 17:15 16 01/18/19 17:00 83 15 01/18/19 16:48 99.0 F 01/18/19 16:00 73 14 01/18/19 15:00 74 15 01/18/19 14:00 74 15 01/18/19 13:41 15 01/18/19 13:38 88 88 84 12 01/18/19 13:20 15 01/18/19 13:00 83 12 01/18/19 12:26 98.1 F 01/18/19 12:00 83 14 01/18/19 11:00 100 12 01/18/19 10:00 94 12 01/18/19 09:13 12 01/18/19 09:00 100 12 01/18/19 08:56 99.1 F 01/18/19 08:00 108 13 01/18/19 07:05 13 01/18/19 07:00 100 14 01/18/19 06:08 15 01/18/19 06:00 101 14 01/18/19 05:00 95 12 01/18/19 04:12 99.8 F H 01/18/19 04:00 102 14 01/18/19 03:41 13 01/18/19 03:00 113 13 01/18/19 02:00 111 16 01/18/19 01:00 111 12 01/18/19 00:25 98.6 F 01/18/19 00:13 16 01/18/19 00:00 118 14 Resp BP BP BP BP Pulse Ox 01/18/19 23:00 98/55 98 01/18/19 22:00 118/62 97 01/18/19 21:31 99 01/18/19 21:00 110/64 98 01/18/19 20:32 01/18/19 20:00 108/64 98 01/18/19 19:38 97 01/18/19 19:20 97/64 98 01/18/19 18:00 94/58 97 01/18/19 17:15 114/66 96 01/18/19 17:00 114/66 96 01/18/19 16:48 01/18/19 16:00 119/71 99 01/18/19 15:00 105/63 96 01/18/19 14:00 100/71 95 01/18/19 13:41 67/50 100 01/18/19 13:38 12 146/86 119/76 79/49 01/18/19 13:20 67/50 93 01/18/19 13:00 67/50 94 01/18/19 12:26 01/18/19 12:00 86/58 97 01/18/19 11:00 67/50 95 01/18/19 10:00 76/53 98 01/18/19 09:13 81/57 98 01/18/19 09:00 81/57 98 01/18/19 08:56 01/18/19 08:00 90/55 96 01/18/19 07:05 114/67 94 01/18/19 07:00 114/67 94 01/18/19 06:08 94 01/18/19 06:00 105/66 93 01/18/19 05:00 101/59 93 01/18/19 04:12 01/18/19 04:00 101/54 91 01/18/19 03:41 92 01/18/19 03:00 88/59 93 01/18/19 02:00 90/58 93 01/18/19 01:00 80/51 92 01/18/19 00:25 01/18/19 00:13 91 01/18/19 00:00 104/59 95 Intake and Output 01/18/19 01/18/19 01/18/19 07:59 15:59 23:59 Intake Total 353.2 / 353.2 1577 / 1577 523.4 / 523.4 Output Total 325 / 325 550 / 550 425 / 425 Balance 28.2 / 28.2 1027 / 1027 98.4 / 98.4 Intake: IV Fluids 353.2 / 353.2 527 / 527 423.4 / 423.4 PRECEDEX Premix 400 mcg In 100 94 / 94 ml @ 0.3 MCG/KG/HR 6.735 mls/hr IVC .[id number] [facility] Rx#: [id number] FentaNYL (PF) 1,000 MCG In 0.9 58.0 / 58.0 21 / 21 % Sodium Chloride 80 ML @ 50 MCG/HR 5 mls/hr IVC [facility] Rx #:[id number] Versed 50 MG In 0.9 % Sodium 49.2 / 49.2 24 / 24 94 / 94 Chloride 90 ML @ 2 MG/HR 4 mls/ hr IVC [facility] Rx#:[id number] Levophed 4 MG In Dextrose 5% 176 / 176 78 / 78 79.4 / 79.4 250 ML @ 8 MCG/MIN 30.48 mls/hr IVC [facility] Rx#:[id number] Maxipime 2,000 MG In Water for 20 / 20 inj. (sterile) 20 ML @ 300 mls/ hr IVP Q8HR [facility] Rx#:[id number] Merrem 1,000 MG In Water for 10 / 10 inj. (sterile) 10 ML @ 120 mls/ hr IVP Q8HR [facility] Rx#:[id number] Cleocin Premix 900 MG/50 ML 900 50 / 50 50 / 50 mg In 50 ml @ 50 mls/hr IVPB Q8HR [facility] Rx#:[id number] Vancocin 1,000 MG In 0.9 % 250 / 250 250 / 250 Sodium Chloride 250 ML @ 166. 667 mls/hr IVPB Q12H [facility] Rx#: [id number] Oral 0 / 0 0 / 0 Free Water 1050 / 1050 100 / 100 Output: Catheter 175 / 175 500 / 500 375 / 375 Gastric Drainage 150 / 150 50 / 50 50 / 50 Other: Weight 84.4 kg Blood Glucose* 97 100 96 Patient Weight 01/18/19 23:59 Weight 84.4 kg - Lab 01/18/19 03:46 01/18/19 03:46 Most recent lab results ABG pH 7.51 pH Units (7.32-7.45) H 01/18/19 05:15 ABG pCO2 43 mmHg (35-45) 01/18/19 05:15 ABG pO2 54 mmHg (85-104) L 01/18/19 05:15 ABG HCO3 34 mEq/L (21-27) H 01/18/19 05:15 ABG O2 Saturation 90 % (95-98) L 01/18/19 05:15 Calcium 9.0 mg/dL (8.6-10.3) 01/18/19 03:46 Phosphorus 1.6 mg/dL (2.7-4.5) L 01/18/19 03:46 Magnesium 1.8 mg/dL (1.6-2.6) 01/18/19 03:46 Urine Creatinine 49 mg/dL 01/14/19 14:45 Urine Sodium 69.4 mEq/L 01/14/19 14:45 Consult Discharge Plan - Plan Referrals: Michael Gonzalez MD [Partnered Physician] - (Sent web request on 01-15-19 @ [phone]) Mika Stokes MD [Primary Care Provider] - 01/27/19 8:30 am
[2019-01-19] MEDS: Artificial Tears SOLN 15 ML BOTTLE BOTH EYES SCH ×7 (00:31→23:32)
[2019-01-19] MEDS: Meropenem 1,000 MG in Water for inj. (sterile) 20 ML 10 ML IVP SCH ×4 (00:32→23:35)
[2019-01-19] MEDS: Dexmedetomidine HCl 400 MCG/100 ML MLS IVC SCH ×3 (00:45→23:32)
[2019-01-19 04:26] LABS: Basophils % 0.2 %; Eosinophils # 0.5 K/mcL (0.0-0.6); Hematocrit 28.3 % (37.5-50.1); Hemoglobin 9.5 g/dL (12.9-16.9); Immature Granulocytes % 0.7 % (0-4); Lymphocytes # 0.4 K/mcL (0.6-4.6); Lymphocytes % 1.8 %; Mean Corpuscular HGB Conc 33.6 g/dL (31.6-35.5); Mean Corpuscular Hemoglobin 29.2 pg (28.0-33.3); Mean Corpuscular Volume 87.1 fL (83.0-100.0); Mean Platelet Volume 9.5 fL (9.4-12.4); Monocytes # 1.3 K/mcL (0.0-1.3); Monocytes % 5.7 %; Neutrophils # 21.1 K/mcL (1.6-8.9); Platelet Count 219 K/mcL (140-400); Red Blood Count 3.25 M/mcL (4.19-5.50); Red Cell Distribution Width 14.1 % (11.5-14.5); Segmented Neutrophils % 89.6 %
[2019-01-19 04:43] LABS: Basophils # 0.1 K/mcL (0.0-0.2)
[2019-01-19 04:44] LABS: BUN/Creatinine Ratio 45 (6-26); Blood Urea Nitrogen 31 mg/dL (8-23); Calcium 8.9 mg/dL (8.6-10.3); Carbon Dioxide 31 mEq/L (23-29); Chloride 92 mEq/L (98-107); Glucose 100 mg/dL (70-105); Osmolality,Calculated 275 (280-300); Potassium 3.6 mEq/L (3.5-5.1); Sodium 129 mEq/L (136-145); eGFR For Non-African Americans > 60 (> 60)
[2019-01-19 04:45] LABS: Phosphorous 2.8 mg/dL (2.7-4.5)
[2019-01-19 05:30] LABS: Platelet Estimate Normal (Normal)
[2019-01-19 05:31] LABS: ABG Base Excess 8 mEq/L (-2 to 3); ABG HCO3 32 mEq/L (21-27); ABG Oxygen Saturation 91 % (95-98); ABG PCO2 41 mmHg (35-45); ABG PO2 55 mmHg (85-104); ABG TCO2 33 mEq/L (20-26); Blood Gas Modality ASSIST CONTROL; Blood Gas PEEP 5 cm H2O; Blood Gas Respiration Rate 12; Blood Gas VT 500 cc
[2019-01-19] MEDS: *HR* Heparin 5,000 UNIT/ML VIAL SQ SCH ×2 (06:10→15:23)
[2019-01-19] MEDS: Finasteride 5 MG TABLET PO SCH (07:21)
[2019-01-19] MEDS: Chlorhexidine Rinse 15 ML MOUTHWASH MM SCH ×2 (07:21→20:40)
[2019-01-19] MEDS: Pantoprazole 40 MG VIAL IVP SCH (07:22)
[2019-01-19] MEDS: Aspirin Enteric Coated 81 MG Tablet PO SCH (07:23)
[2019-01-19] MEDS ORDERED: Potassium Chloride Elixir 20 MEQ/15 ML UDC GTUBE ONE (07:46)
--- NOTE | 2019-01-19 07:54 | Pulmonology Progress Note ---
<Malathi Cullen M - Last Filed: 01/19/19 11:01> Date of Encounter: 01/19/19 Time of Encounter: 07:30 Assessment and Plan (1) Acute respiratory failure with hypoxia and hypercapnia Current Visit: Yes Status: Acute Emergent intubation and mechanical ventilation on 01/16 Patient extubated today and on BiPAP. May need reintubation No longer on vasopressor support Acute respiratory failure likely due to sepsis from pneumonia, likely aspiratio n, hypercapnea, progressing left pleural effusion CT chest from 01/18 shows multifocal airspace disease L>R, increased secondary to pneumonia and small bilateral pleural effusions S/p Bronchoscopy and bronchoalveolar lavage on 01/18 with left lower lobe pneumonia, atelectasis, mucous plug in left mainstem bronchus BAL, culture, and cytology pending Positive coronavirus Repeat ABG after extubation and on BiPAP 7.22, CO2 72, bicarb 30 Continue vancomycin and meropenem Will start IV Solu-medrol 60mg TID for 3 days Add symbicort (2) Pneumonia Current Visit: Yes Status: Acute S/p bronchoscopy on 01/18 Continue vancomycin and meropenem Will need speech therapy consultation and swallow evaluation Continue with AVAPS Steroids and bronchodilators as above Qualifiers: Pneumonia type: due to unspecified organism Laterality: left Lung location: lower lobe of lung Qualified Code(s): J18.1 - Lobar pneumonia, unspecified organism (3) Sepsis Current Visit: Yes Status: Acute Secondary to left lower lobe pneumonia Leukocytosis improving. No longer requiring vasopressor BAL, culture, and cytology pending Blood cultures from 01/16 negative Urine legionella and strep pneumoniae Ag negative Continue Vancomycin, day 4 and meropenem, day 2 Qualifiers: Sepsis type: sepsis due to unspecified organism Qualified Code(s): A41.9 - Sepsis, unspecified organism (4) Encephalopathy Current Visit: Yes Status: Acute Likely metabolic encephalopathy, multifactorial due to hypercapnia and hypoxic respiratory failure, hyponatremia, pneumonia No Neurologic deficits, patient following commands, nonfocal examination CT head and MRI brain with no acute abnormalities Neurology following, their recommendations appreciated (5) Ischemic cardiomyopathy Current Visit: No Status: Chronic Echocardiogram from 01/16 with LVEF 25-30%, severe global LV systolic dysfunction and bundle branch block CT chest from yesterday with small bilateral pleural effusions Troponin <0.03 and EKG from today with sinus tachycardia and LBBB Patient follows up with Dr. Sánchez, Cardiology and has AICD placement scheduled on 01/22/19 Repeat EKG today with sinus tachycardia and LBBB Cardiology has been consulted (6) Hyponatremia Current Visit: Yes Status: Acute Na 129 today Urine osmolality 499, Urine Cr 49, urine sodium 69.4, urine potassium 29.9, cortisol 20.2 Continue salt tubes and fluid restriction Nephrology following, appreciate their recommendations (7) Hypertension Current Visit: No Status: Chronic Continue to hold home medications until tolerating PO Qualifiers: Hypertension type: essential hypertension Qualified Code(s): I10 - Essential (primary) hypertension (8) Rectal mass Current Visit: Yes Status: Suspected CT abdomen with finding of a possible rectal mass GI on consult for colonoscopy once acute issues resolve Repeat CT A/P from today with mild decrease in rectal wall thickening (9) DVT prophylaxis Current Visit: Yes Status: Acute SQ heparin Subjective Principal diagnosis: Hyponatremia Interval history: Patient initially being treated for hyponatremia and presented to the ICU on 01/16/19 for worsening altered mental status and acute on chronic respiratory failure. The patient was also hypotensive. A central line was placed in the right common femoral vein and pressors were started. The patient was intubated and started on mechanical ventilation. Patient has pneumonia, possible aspiration, and on IV cefepime, clindamycin and vancomycin. Coronavirus positive on respiratory panel. Patient toerated CPAP trial yesterday and follows commands. He had a bronchoscopy yesterday as well and antibiotics switched to vancomycin and meropenem. Today, no longer requiring vasopressor support. Awake, following commands while intubated. Plan is to extubate. Patient was extubated at 0900. He became tachycardic, tachypneic, diaphoretic. On BiPAP with O2 sat 87%. Was placed in AVAPS settings with tidal volume 500 EPAP 8 and rate 12 and FiO2 100%. If patient unable to tolerate and is still in respiratory distress, he will need to be re-intubated. Discussed with patient's daughter at bedside who is POA and agreeable to re-intubation if needed. Will reassess. Patient had 1300cc output yesterday. Objective PUL Vital signs: Last Vital Signs Temp 98.8 F 01/19/19 04:19 Pulse 94 01/19/19 07:30 Resp 24 01/19/19 07:00 BP 119/61 01/19/19 07:00 Pulse Ox 96 01/19/19 07:00 General appearance: no acute distress, alert, other (following commands) Eyes: nonicteric, other (PERRL, normal conjunctiva) ENT: oropharynx moist Neck: supple, no JVD Effort: other (Bibasilar diminished breath sounds with no wheezing or rhonchi) Cardiovascular: other (tachycardic, normal rhythm, bilateral radial pulses and dorsalis pedis puleses equal ) Gastrointestinal: normoactive bowel sounds, soft, non-tender, non-distended Integumentary: other (mild blanching erythema on right foot, improved from ye . Warm, dry, intact) Musculoskeletal: no deformities CN II-XII normal, other (follows commands, EOMI, PERRL, squeezes fingers bilaterally) anxious Ventilator Settings Ventilator Settings: Ventilator Settings, Last 8 Hours Ventilator Tidal Volume 500 Setting Ventilator Tidal Volume 500 Setting Ventilator Tidal Volume 500 Setting Ventilator Tidal Volume 500 Setting Ventilator Tidal Volume 500 Setting Ventilator Tidal Volume 500 Setting Ventilator Tidal Volume 500 Setting Ventilator Tidal Volume 500 Setting Ventilator Tidal Volume 500 Setting Ventilator Tidal Volume 500 Setting Ventilator Tidal Volume 500 Setting Ventilator Tidal Volume 500 Setting Ventilator Respiratory Rate 12 Setting Ventilator Respiratory Rate 12 Setting Ventilator Respiratory Rate 12 Setting Ventilator Respiratory Rate 12 Setting Ventilator Respiratory Rate 12 Setting Ventilator Respiratory Rate 12 Setting Ventilator Respiratory Rate 12 Setting Ventilator Respiratory Rate 12 Setting Ventilator Respiratory Rate 12 Setting Ventilator Respiratory Rate 12 Setting Ventilator Respiratory Rate 12 Setting Ventilator Respiratory Rate 12 Setting Actual Respiratory Rate 24 Actual Respiratory Rate 14 Actual Respiratory Rate 16 Actual Respiratory Rate 16 Actual Respiratory Rate 13 Actual Respiratory Rate 12 Actual Respiratory Rate 12 Actual Respiratory Rate 12 Actual Respiratory Rate 12 Actual Respiratory Rate 12 Actual Respiratory Rate 13 Actual Respiratory Rate 12 Positive End Expiratory 5 Pressure Positive End Expiratory 5 Pressure Positive End Expiratory 5 Pressure Positive End Expiratory 5 Pressure Positive End Expiratory 5 Pressure Positive End Expiratory 5 Pressure Positive End Expiratory 5 Pressure Positive End Expiratory 5 Pressure Positive End Expiratory 5 Pressure Positive End Expiratory 5 Pressure Positive End Expiratory 5 Pressure Positive End Expiratory 5 Pressure Peak Inspiratory Airway 22 Pressure Peak Inspiratory Airway 22 Pressure Peak Inspiratory Airway 23 Pressure Peak Inspiratory Airway 22 Pressure Peak Inspiratory Airway 23 Pressure Peak Inspiratory Airway 23 Pressure Peak Inspiratory Airway 23 Pressure Peak Inspiratory Airway 26 Pressure Peak Inspiratory Airway 24 Pressure Peak Inspiratory Airway 24 Pressure Peak Inspiratory Airway 27 Pressure Results - Laboratory Findings CBC and BMP: 01/19/19 04:10 01/19/19 04:10 ABG ABG pH 7.50 pH Units (7.32-7.45) H 01/19/19 05:28 ABG pCO2 41 mmHg (35-45) 01/19/19 05:28 ABG pO2 55 mmHg (85-104) L 01/19/19 05:28 ABG O2 Saturation 91 % (95-98) L 01/19/19 05:28 PT/INR, D-dimer PT 10.1 Seconds (9.4-12.1) 01/16/19 14:10 Abnormal lab findings: Abnormal lab results WBC 23.5 K/mcL (4.3-11.1) H 01/19/19 04:10 RBC 3.25 M/mcL (4.19-5.50) L 01/19/19 04:10 Hgb 9.5 g/dL (12.9-16.9) L 01/19/19 04:10 Hct 28.3 % (37.5-50.1) L 01/19/19 04:10 Neutrophils # 21.1 K/mcL (1.6-8.9) H 01/19/19 04:10 Lymphocytes # 0.4 K/mcL (0.6-4.6) L 01/19/19 04:10 ABG pH 7.50 pH Units (7.32-7.45) H 01/19/19 05:28 ABG pO2 55 mmHg (85-104) L 01/19/19 05:28 ABG HCO3 32 mEq/L (21-27) H 01/19/19 05:28 ABG Total CO2 33 mEq/L (20-26) H 01/19/19 05:28 ABG O2 Saturation 91 % (95-98) L 01/19/19 05:28 ABG Base Excess 8 mEq/L (-2 to 3) H 01/19/19 05:28 Sodium 129 mEq/L (136-145) L 01/19/19 04:10 Chloride 92 mEq/L (98-107) L 01/19/19 04:10 Carbon Dioxide 31 mEq/L (23-29) H 01/19/19 04:10 BUN 31 mg/dL (8-23) H 01/19/19 04:10 Creatinine 0.69 mg/dL (0.70-1.30) L 01/19/19 04:10 BUN/Creatinine Ratio 45 (6-26) H 01/19/19 04:10 Calculated Osmolality 275 (280-300) L 01/19/19 04:10 B-Natriuretic Peptide 336 pg/mL (Less than 100) H 01/15/19 03:20 Serum Total Protein 5.8 g/dL (6.4-8.9) L 01/16/19 14:10 Albumin 3.3 g/dL (3.5-5.7) L 01/16/19 14:10 TSH 0.302 mcIU/mL (0.340-5.600) L 01/15/19 03:20 Total T3 0.42 ng/mL (0.87-1.78) L 01/16/19 01:14 Urine Clarity Cloudy (Clear) A 01/16/19 13:10 Urine Protein 100 mg/dL (Neg-Trace) H 01/16/19 13:10 Urine Blood Large (Negative) H 01/16/19 13:10 Ur Leukocyte Esterase Trace (Negative) H 01/16/19 13:10 Urine Microscopic RBC TNTC per hpf (0-3) H 01/16/19 13:10 Urine Microscopic WBC 5-15 per hpf (0-3) H 01/16/19 13:10 Ur Squamous Epith Cells Many per lpf (None-Few) H 01/16/19 13:10 Ur Culture Indicated? NO. (NO) A 01/16/19 13:10 Fluid Appearance Cloudy (Clear) A 01/18/19 13:10 Vancomycin Trough 18 mcg/mL (5-10) H 01/18/19 03:46 Coronavirus NL63 (PCR) DETECTED (Not Detect) A 01/16/19 22:11 - Microbiology Findings Microbiology Findings: Microbiology, Last 48 Hours 01/18/19 13:10 Respiratory Culture - Preliminary Left Lower Lobe Lung - Clinical Findings Intake & Output: Intake & Output 01/18/19 01/18/19 01/19/19 15:59 23:59 07:59 Intake Total 1577 / 1577 523.4 / 523.4 130.1 / 130.1 Output Total 550 / 550 425 / 425 150 / 150 Balance 1027 / 1027 98.4 / 98.4 -19.9 / -19.9 Consult Discharge Plan - Plan Referrals: Michael Gonzalez MD [Partnered Physician] - (Sent web request on 01-15-19 @ [phone]) Mika Stokes MD [Primary Care Provider] - 01/27/19 8:30 am <Miguel Wilson - Last Filed: 01/19/19 21:05> Date of Encounter: 01/19/19 Objective PUL Vital signs: Last Vital Signs Temp 98.0 F 01/19/19 07:10 Pulse 100 01/19/19 08:00 Resp 24 01/19/19 08:00 BP 133/73 01/19/19 08:00 Pulse Ox 95 01/19/19 08:00 Ventilator Settings Ventilator Settings: Ventilator Settings, Last 8 Hours Ventilator Tidal Volume 500 Setting Ventilator Tidal Volume 500 Setting Ventilator Tidal Volume 500 Setting Ventilator Tidal Volume 500 Setting Ventilator Tidal Volume 500 Setting Ventilator Tidal Volume 500 Setting Ventilator Tidal Volume 500 Setting Ventilator Tidal Volume 500 Setting Ventilator Tidal Volume 500 Setting Ventilator Tidal Volume 500 Setting Ventilator Respiratory Rate 12 Setting Ventilator Respiratory Rate 12 Setting Ventilator Respiratory Rate 12 Setting Ventilator Respiratory Rate 12 Setting Ventilator Respiratory Rate 12 Setting Ventilator Respiratory Rate 12 Setting Ventilator Respiratory Rate 12 Setting Ventilator Respiratory Rate 12 Setting Ventilator Respiratory Rate 12 Setting Ventilator Respiratory Rate 12 Setting Actual Respiratory Rate 24 Actual Respiratory Rate 14 Actual Respiratory Rate 16 Actual Respiratory Rate 16 Actual Respiratory Rate 13 Actual Respiratory Rate 12 Actual Respiratory Rate 12 Actual Respiratory Rate 12 Actual Respiratory Rate 12 Actual Respiratory Rate 12 Positive End Expiratory 5 Pressure Positive End Expiratory 5 Pressure Positive End Expiratory 5 Pressure Positive End Expiratory 5 Pressure Positive End Expiratory 5 Pressure Positive End Expiratory 5 Pressure Positive End Expiratory 5 Pressure Positive End Expiratory 5 Pressure Positive End Expiratory 5 Pressure Positive End Expiratory 5 Pressure Peak Inspiratory Airway 22 Pressure Peak Inspiratory Airway 22 Pressure Peak Inspiratory Airway 23 Pressure Peak Inspiratory Airway 22 Pressure Peak Inspiratory Airway 23 Pressure Peak Inspiratory Airway 23 Pressure Peak Inspiratory Airway 23 Pressure Peak Inspiratory Airway 26 Pressure Peak Inspiratory Airway 24 Pressure Results - Laboratory Findings CBC and BMP: 01/19/19 04:10 01/19/19 15:00 ABG ABG pH 7.50 pH Units (7.32-7.45) H 01/19/19 05:28 ABG pCO2 41 mmHg (35-45) 01/19/19 05:28 ABG pO2 55 mmHg (85-104) L 01/19/19 05:28 ABG O2 Saturation 91 % (95-98) L 01/19/19 05:28 PT/INR, D-dimer PT 10.1 Seconds (9.4-12.1) 01/16/19 14:10 Abnormal lab findings: Abnormal lab results WBC 23.5 K/mcL (4.3-11.1) H 01/19/19 04:10 RBC 3.25 M/mcL (4.19-5.50) L 01/19/19 04:10 Hgb 9.5 g/dL (12.9-16.9) L 01/19/19 04:10 Hct 28.3 % (37.5-50.1) L 01/19/19 04:10 Neutrophils # 21.1 K/mcL (1.6-8.9) H 01/19/19 04:10 Lymphocytes # 0.4 K/mcL (0.6-4.6) L 01/19/19 04:10 ABG pH 7.50 pH Units (7.32-7.45) H 01/19/19 05:28 ABG pO2 55 mmHg (85-104) L 01/19/19 05:28 ABG HCO3 32 mEq/L (21-27) H 01/19/19 05:28 ABG Total CO2 33 mEq/L (20-26) H 01/19/19 05:28 ABG O2 Saturation 91 % (95-98) L 01/19/19 05:28 ABG Base Excess 8 mEq/L (-2 to 3) H 01/19/19 05:28 Sodium 129 mEq/L (136-145) L 01/19/19 04:10 Chloride 92 mEq/L (98-107) L 01/19/19 04:10 Carbon Dioxide 31 mEq/L (23-29) H 01/19/19 04:10 BUN 31 mg/dL (8-23) H 01/19/19 04:10 Creatinine 0.69 mg/dL (0.70-1.30) L 01/19/19 04:10 BUN/Creatinine Ratio 45 (6-26) H 01/19/19 04:10 Calculated Osmolality 275 (280-300) L 01/19/19 04:10 B-Natriuretic Peptide 336 pg/mL (Less than 100) H 01/15/19 03:20 Serum Total Protein 5.8 g/dL (6.4-8.9) L 01/16/19 14:10 Albumin 3.3 g/dL (3.5-5.7) L 01/16/19 14:10 TSH 0.302 mcIU/mL (0.340-5.600) L 01/15/19 03:20 Total T3 0.42 ng/mL (0.87-1.78) L 01/16/19 01:14 Urine Clarity Cloudy (Clear) A 01/16/19 13:10 Urine Protein 100 mg/dL (Neg-Trace) H 01/16/19 13:10 Urine Blood Large (Negative) H 01/16/19 13:10 Ur Leukocyte Esterase Trace (Negative) H 01/16/19 13:10 Urine Microscopic RBC TNTC per hpf (0-3) H 01/16/19 13:10 Urine Microscopic WBC 5-15 per hpf (0-3) H 01/16/19 13:10 Ur Squamous Epith Cells Many per lpf (None-Few) H 01/16/19 13:10 Ur Culture Indicated? NO. (NO) A 01/16/19 13:10 Fluid Appearance Cloudy (Clear) A 01/18/19 13:10 Vancomycin Trough 18 mcg/mL (5-10) H 01/18/19 03:46 Coronavirus NL63 (PCR) DETECTED (Not Detect) A 01/16/19 22:11 - Microbiology Findings Microbiology Findings: Microbiology, Last 48 Hours 01/18/19 13:10 Respiratory Culture - Preliminary Left Lower Lobe Lung - Clinical Findings Intake & Output: Intake & Output 01/18/19 01/19/19 01/19/19 23:59 07:59 15:59 Intake Total 523.4 / 523.4 130.1 / 130.1 Output Total 425 / 425 250 / 250 Balance 98.4 / 98.4 -119.9 / -119.9 Weight 84.4 kg - Attending Attestation I examined this patient and my medical decision-making was reviewed with the Resident Physician. I agree with the documented findings, disposition and treatment plan as described except to the extent set forth below. Patient seen and examined. Labs, radiology, chart personally reviewed. 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 Pt was extubated and had difficulty breathing and start Symbicort and IV steroid and tolerate AVAP. Cardiovascular: tachycardia and need cardiology and diuresis. Patient was schedule to have AICD. Cardiology agreed with heparin drip and I explained to family there is a risk of bleeding, however will defer other recommendations to cardiology such as B-pavithra etc. GI: Nutrition per dietary and GI prophylaxis per routine. This could be a prob staci with his respiratory failure. Heme: DVT prophylaxis per routine ID: Continue antibiotics and plan to de-escalation and follow up on BAL result Renal; urine out put and renal funtion reviewed Endorcine: blood glucose is monitored Lines: all lines checked and no evidence of infections Skin: skin care to prevent pressure ulcers per nursing routine care After patient was extubated he was having problems with his respiration was better with changing setting t ACAP. I had multiple discussion with POA and family at the bedside and in my opinion there is combination of his pneumonia and his heart failure is making his condition not stable. I have called Dr. Wheat and patient is known to Dr. Sánchez who came to see patient and we all agreed that patient has most likely demand ischemia and with elevated troponon no intervention is needed, but to monitor and this was communicated clearly with the family. We have discussed option of transferring patient, but family agreed on current treatment. I have told the family his condition could still deteriorate and they understand that. I feel with his underlying cardiomyopathy and superimposed pneumonia, his condition might even deteriorate further and may need to be intubated. I spent 55 min of Critical Care time with this patient. It involved decision making of high complexity to assess, manipulate, and support vital organ system failure and/or to prevent further life threatening deterioration of the patient's condition. The time involved in the performance of separately reportable procedures was not counted toward critical care time.
[2019-01-19] MEDS: Aspirin 81 MG TAB.CHEW PO SCH (07:57)
[2019-01-19 09:40] LABS: ABG Base Excess 1 mEq/L (-2 to 3); ABG HCO3 30 mEq/L (21-27); ABG Oxygen Saturation 85 % (95-98); ABG PCO2 72 mmHg (35-45); ABG PH 7.22 pH Units (7.32-7.45); ABG PO2 62 mmHg (85-104); ABG TCO2 32 mEq/L (20-26)
--- NOTE | 2019-01-19 09:42 | Neurology Progress Note ---
<Indiana Oliva - Last Filed: 01/19/19 09:46> Date of Encounter: 01/19/19 Time of Encounter: 09:35 Assessment and Plan (1) Encephalopathy Current Visit: Yes Status: Acute Patient admitted for hyponatremia. He developed acute respiratory failure with hypoxia and hypercapnia that was secondary to aspiration pneumonia that required intubation with mechanical ventilation. -Encephalopathy is likely secondary to the acute respiratory failure and hypercapnia -head CT demonstrated no acute intracranial abnormality -brain MRI demonstrate no acute intracranial abnormality -EEG was normal -Patient has had improved mental status. He is alert and following commands appropriately. He has a mild distress on the BiPAP machine with increased worke r breathing. On examination there is no unilateral weakness or obvious focal deficits. Recommendations: The encephalopathy appears to have resolved. He is alert and following commands. Again this is likely secondary to acute respiratory failure with hypercapnia and hypoxia. Continue medical and supportive treatment. (2) Acute respiratory failure with hypoxia and hypercapnia Current Visit: Yes Status: Acute Patient with acute respiratory failure with hypoxia and hypercapnia the required intubation with mechanical ventilation. -Management per primary team Subjective Principal diagnosis: Hyponatremia Interval history: Patient seen and examined at bedside sitting up. Patient is in mild distress on the BiPAP machine. He is alert and follows commands. His nurse reports that he has followed commands for him as well. His mental status has improved. He is unable to answer questions due to using the BiPAP machine. The patient may need to be re-intubated due to fatigue on the BiPAP machine. Objective - Constitutional Vitals: Temp Pulse Resp BP Pulse Ox 98.0 F 130 25 153/82 88 01/19/19 07:10 01/19/19 09:00 01/19/19 09:00 01/19/19 09:00 01/19/19 09:00 General appearance: Present: no acute distress Exam: Gen.: Vitals noted. In mild distress. Alert HEENT: PERRL/EOMI, oropharynx clear, Normocephalic, atraumatic Neck: Supple. No adenopathy. Cardiac: RRR, no murmur, +S1/S2 Pulmonary: decreased breath sounds bilaterally, no wheezes or rhonchi, equal chest expansion MSK: ROM intact, no joint swelling noted Extremities: no BLE edema, nontender calf, no cyanosis Neuro: alert moves all extremities, 5/5 upper extremity strength, 4/5 lower extremity strength, intact sensation, 2/4 DTR in biceps, triceps, brachioradialis, patellar, achilles, Negative for facial asymmetry, hemisensory deficits, tingling, numbness Psych: Appropriate mood and behavior Results - Laboratory Findings CBC and BMP: 01/19/19 04:10 01/19/19 04:10 Abnormal lab findings: Abnormal lab results WBC 23.5 K/mcL (4.3-11.1) H 01/19/19 04:10 RBC 3.25 M/mcL (4.19-5.50) L 01/19/19 04:10 Hgb 9.5 g/dL (12.9-16.9) L 01/19/19 04:10 Hct 28.3 % (37.5-50.1) L 01/19/19 04:10 Neutrophils # 21.1 K/mcL (1.6-8.9) H 01/19/19 04:10 Lymphocytes # 0.4 K/mcL (0.6-4.6) L 01/19/19 04:10 ABG pH 7.50 pH Units (7.32-7.45) H 01/19/19 05:28 ABG pO2 55 mmHg (85-104) L 01/19/19 05:28 ABG HCO3 32 mEq/L (21-27) H 01/19/19 05:28 ABG Total CO2 33 mEq/L (20-26) H 01/19/19 05:28 ABG O2 Saturation 91 % (95-98) L 01/19/19 05:28 ABG Base Excess 8 mEq/L (-2 to 3) H 01/19/19 05:28 Sodium 129 mEq/L (136-145) L 01/19/19 04:10 Chloride 92 mEq/L (98-107) L 01/19/19 04:10 Carbon Dioxide 31 mEq/L (23-29) H 01/19/19 04:10 BUN 31 mg/dL (8-23) H 01/19/19 04:10 Creatinine 0.69 mg/dL (0.70-1.30) L 01/19/19 04:10 BUN/Creatinine Ratio 45 (6-26) H 01/19/19 04:10 Calculated Osmolality 275 (280-300) L 01/19/19 04:10 B-Natriuretic Peptide 336 pg/mL (Less than 100) H 01/15/19 03:20 Serum Total Protein 5.8 g/dL (6.4-8.9) L 01/16/19 14:10 Albumin 3.3 g/dL (3.5-5.7) L 01/16/19 14:10 TSH 0.302 mcIU/mL (0.340-5.600) L 01/15/19 03:20 Total T3 0.42 ng/mL (0.87-1.78) L 01/16/19 01:14 Urine Clarity Cloudy (Clear) A 01/16/19 13:10 Urine Protein 100 mg/dL (Neg-Trace) H 01/16/19 13:10 Urine Blood Large (Negative) H 01/16/19 13:10 Ur Leukocyte Esterase Trace (Negative) H 01/16/19 13:10 Urine Microscopic RBC TNTC per hpf (0-3) H 01/16/19 13:10 Urine Microscopic WBC 5-15 per hpf (0-3) H 01/16/19 13:10 Ur Squamous Epith Cells Many per lpf (None-Few) H 01/16/19 13:10 Ur Culture Indicated? NO. (NO) A 01/16/19 13:10 Fluid Appearance Cloudy (Clear) A 01/18/19 13:10 Vancomycin Trough 18 mcg/mL (5-10) H 01/18/19 03:46 Coronavirus NL63 (PCR) DETECTED (Not Detect) A 01/16/19 22:11 Consult Discharge Plan - Plan Referrals: Michael Gonzalez MD [Partnered Physician] - (Sent web request on 01-15-19 @ [phone]) Mika Stokes MD [Primary Care Provider] - 01/27/19 8:30 am <Irvin Thomason I - Last Filed: 01/19/19 13:05> Date of Encounter: 01/19/19 Assessment and Plan (1) Encephalopathy Current Visit: Yes Status: Acute (2) Encephalopathy Current Visit: Yes Status: Acute Pt was seen and examined, had [id number] evaluation , my medical decision was reviewed with the Resident Physician, I agree with the documented findings, disposition and treatment plan, At this time neurology will sign off call if needed Irvin Thomason MD Objective - Constitutional Vitals: Temp Pulse Resp BP Pulse Ox 97.6 F 109 20 172/76 93 01/19/19 12:42 01/19/19 13:00 01/19/19 13:00 01/19/19 13:00 01/19/19 13:00 Results - Laboratory Findings CBC and BMP: 01/19/19 04:10 01/19/19 04:10 Abnormal lab findings: Abnormal lab results WBC 23.5 K/mcL (4.3-11.1) H 01/19/19 04:10 RBC 3.25 M/mcL (4.19-5.50) L 01/19/19 04:10 Hgb 9.5 g/dL (12.9-16.9) L 01/19/19 04:10 Hct 28.3 % (37.5-50.1) L 01/19/19 04:10 Neutrophils # 21.1 K/mcL (1.6-8.9) H 01/19/19 04:10 Lymphocytes # 0.4 K/mcL (0.6-4.6) L 01/19/19 04:10 ABG pH 7.22 pH Units (7.32-7.45) L D 01/19/19 09:33 ABG pCO2 72 mmHg (35-45) H* D 01/19/19 09:33 ABG pO2 62 mmHg (85-104) L 01/19/19 09:33 ABG HCO3 30 mEq/L (21-27) H 01/19/19 09:33 ABG Total CO2 32 mEq/L (20-26) H 01/19/19 09:33 ABG O2 Saturation 85 % (95-98) L 01/19/19 09:33 Sodium 129 mEq/L (136-145) L 01/19/19 04:10 Chloride 92 mEq/L (98-107) L 01/19/19 04:10 Carbon Dioxide 31 mEq/L (23-29) H 01/19/19 04:10 BUN 31 mg/dL (8-23) H 01/19/19 04:10 Creatinine 0.69 mg/dL (0.70-1.30) L 01/19/19 04:10 BUN/Creatinine Ratio 45 (6-26) H 01/19/19 04:10 POC Glucose 115 mg/dL (70-99) H 01/19/19 11:52 Calculated Osmolality 275 (280-300) L 01/19/19 04:10 Troponin I 0.26 ng/mL (< 0.04) H* 01/19/19 10:45 B-Natriuretic Peptide 336 pg/mL (Less than 100) H 01/15/19 03:20 Serum Total Protein 5.8 g/dL (6.4-8.9) L 01/16/19 14:10 Albumin 3.3 g/dL (3.5-5.7) L 01/16/19 14:10 TSH 0.302 mcIU/mL (0.340-5.600) L 01/15/19 03:20 Total T3 0.42 ng/mL (0.87-1.78) L 01/16/19 01:14 Urine Clarity Cloudy (Clear) A 01/16/19 13:10 Urine Protein 100 mg/dL (Neg-Trace) H 01/16/19 13:10 Urine Blood Large (Negative) H 01/16/19 13:10 Ur Leukocyte Esterase Trace (Negative) H 01/16/19 13:10 Urine Microscopic RBC TNTC per hpf (0-3) H 01/16/19 13:10 Urine Microscopic WBC 5-15 per hpf (0-3) H 01/16/19 13:10 Ur Squamous Epith Cells Many per lpf (None-Few) H 01/16/19 13:10 Ur Culture Indicated? NO. (NO) A 01/16/19 13:10 Fluid Appearance Cloudy (Clear) A 01/18/19 13:10 Vancomycin Trough 18 mcg/mL (5-10) H 01/18/19 03:46 Coronavirus NL63 (PCR) DETECTED (Not Detect) A 01/16/19 22:11
[2019-01-19] MEDS: Budesonide/Formoterol 80/4.5 MDI IH SCH ×2 (11:14→20:05)
[2019-01-19] MEDS: FentaNYL (PF) 1,000 MCG in 0.9 % Sodium Chloride 80 ML IVC SCH (11:15)
[2019-01-19] MEDS: Furosemide 40 MG/4 ML VIAL IVP SCH ×2 (11:52→15:22)
[2019-01-19] MEDS ORDERED: *HR* Metoprolol 5 MG/5 ML VIAL IVP ONE (13:06)
[2019-01-19] MEDS: *HR* Metoprolol 5 MG/5 ML VIAL IVP PRN ×2 (13:36→20:40)
--- NOTE | 2019-01-19 13:38 | Cardiology Consult Note ---
<David Smith - Last Filed: 01/19/19 15:13> Date of Encounter: 01/19/19 Time of Encounter: 13:37 Assessment and Plan (1) Acute respiratory failure with hypoxia and hypercapnia Current Visit: Yes Status: Acute Management per primary team. (2) Pneumonia Current Visit: Yes Status: Acute Management per primary team. Qualifiers: Pneumonia type: due to unspecified organism Laterality: left Lung location: lower lobe of lung Qualified Code(s): J18.1 - Lobar pneumonia, unspecified organism (4) Ischemic cardiomyopathy Current Visit: Yes Status: Acute Echo revealed LVEF 25-30%, severe global left ventricular systolic dysfunction, and atypical septal motion consistent with bundle branch block. Patient was previously scheduled to have a AICD insertion on 01/22/[address] Wheat. EKG reveals chronic left bundle branch block with new ST segment deviations. He developed diaphoresis and tachycardia but denies any associated chest pain. Troponin level was elevated at 0.26 Continue medical management Aspirin, statin, and beta pavithra therapy as tolerated. (5) Systolic CHF Current Visit: Yes Status: Chronic BNP elevated 336, CT chest revealed bilateral pleural effusions. Patient was on beta pavithra, ARB, and spironolactone therapy at home. Continue IV diuresis. Resume home meds when able. Qualifiers: Heart failure chronicity: acute on chronic Qualified Code(s): I50.23 - Acute on chronic systolic (congestive) heart failure (6) CAD (coronary artery disease) Current Visit: Yes Status: Chronic Patient with previous coronary stents 3 Continue aspirin, statin, and beta pavithra. Qualifiers: Coronary Disease-Associated Artery/Lesion type: [place] artery [place] vs. transplanted heart: [place] heart Associated angina: without angina Qualified Code(s): I25.10 - Atherosclerotic heart disease of [place] coronary artery without angina pectoris (7) Hypertension Current Visit: Yes Status: Chronic Blood pressure is now controlled off vasopressors support. Patient was on beta pavithra, ARB, and spironolactone therapy at home. Continue monitoring. Qualifiers: Hypertension type: essential hypertension Qualified Code(s): I10 - Essential (primary) hypertension (8) Hyperlipidemia Current Visit: No Status: Chronic Continue statin. Qualifiers: Hyperlipidemia type: unspecified Qualified Code(s): E78.5 - Hyperlipidemia, unspecified Discussion w patient/family: The assessment and plan as outlined above was discussed with the patient and/or family members who expressed understanding and agreement. All questions were answered. Thank you for involving us in the care of your patient. Please call with any questions. History of Present Illness Consult date: 01/19/19 Requesting physician: Malathi Cullen Consult reason: EF 25-30%, suspected cardiogenic shock, required intubation, now extubated Chief complaint: AMS History of present illness: Mr. Cheema is a 73 year old male with a PMH of hypertension, hyperlipidemia, systolic CHF, CAD s/p stent x3, and acute respiratory failure who was transferred from [facility] due to hyponatremia with Na level 119 and AMS. He was treated with IV fluids and developed acute respiratory failure requiring intubation and vasopressor support. Patient was extubated this morning and has been weaned off vasopressor support. He is alert on exam but not conversant due to current bipap therapy. Family reports patient lost 45 pounds in past 6 months and was previously scheduled to have a AICD insertion in [address] Wheat. Patient has chronic left bundle branch block. He developed diaphoresis and tachycardia but denied any associated chest pain. His troponin level was elevated at 0.26 and he was given Aspirin. Cardiology was consulted for further evaluation. Past Med Surg Social Fam HX - Past Medical History Medical history: CHF, coronary artery disease, hyperlipidemia, hypertension, myocardial infarction Psychiatric history: no psych history - Past Surgical History Surgical History: hip replacement Additional surgical history: Back surgery, left hip sx, prostate sx. - Social History Smoking Status: Former smoker Smokeless Tobacco Status: No Alcohol use: none Drug use: none - Family History Mother Living Status: Hx Family Cardiac Disorders: Yes (HTN) Hx Family Cancer: Yes (breast, skin face) Father Living Status: Hx Family Cancer: Yes (prostate) Medications and Allergies Atorvastatin [Lipitor] 40 mg PO HS 05/13/17 [History] Finasteride [Proscar] 5 mg PO DAILY 05/13/17 [History] Losartan/Hydrochlorothiazide [Hyzaar 100-25 Tablet] 1 each PO DAILY 05/13/17 [History] Metoprolol XL (24 HR) Succ [Toprol Xl] 50 mg PO DAILY 05/13/17 [History] Spironolactone [Aldactone] 25 mg PO DAILY 05/13/17 [History] Acetaminophen [Tylenol] 1,000 mg PO DAILY 01/14/19 [History] Aspirin [Lo-Dose Aspirin EC] 81 mg PO DAILY 01/14/19 [History] Melatonin [Melatin] 3 mg PO HS PRN 01/14/19 [History] Allergy/AdvReac Type Severity Reaction Status Date / Time Penicillins [PCN] Allergy Hives Verified 01/14/19 10:19 All Systems Review: The remainder of the systems were reviewed and are negative - Constitutional Constitutional: fatigue, lethargy, weakness, no chills, no fever(s) - EENT Nose, mouth and throat: dysphagia, no sore throat - Cardiovascular Cardiovascular: dyspnea at rest, no chest pain at rest, no chest pain with exertion - Respiratory Respiratory: dyspnea, no cough - Gastrointestinal Gastrointestinal: no abdominal pain, no nausea - Genitourinary Genitourinary: no dysuria, no hematuria - Musculoskeletal Musculoskeletal: no muscle weakness, no myalgias - Integumentary Integumentary: erythema, no rash - Neurological Neurological: no focal weakness, no numbness, no syncope, no tingling - Psychiatric Psychiatric: no anxiety, no depression - Hematological/Lymphatic Hematologic/Lymphatic: no easy bleeding, no easy bruising Physical Examination Vital Signs, Last 4 Hours Temp Pulse Resp BP Pulse Ox 01/19/19 13:00 109 20 172/76 93 01/19/19 12:42 97.6 F 01/19/19 12:00 114 25 146/76 97 01/19/19 11:14 24 150/81 96 01/19/19 11:00 118 24 143/73 94 01/19/19 10:50 24 150/81 99 01/19/19 10:00 109 24 150/81 98 General: Other (Appears ill, mild distress, wearing BiPAP therapy, follows commands) HEENT: Atraumatic, Normocephaly Neck: No JVD, Other (Supple) Cardiac: Reg Rate and Rhythm Lungs: Other (Diminished breath sounds bilaterally) Neuro: Alert and responsive Abdomen: Soft, Non-Tender Skin: Other (Mottled lower extremities) Musculoskeletal: No Chest Wall Tenderness Extremities: No Clubbing, No Cyanosis, Normal Pulses, Other (+1 pedal edema) Results 01/19/19 04:10 01/19/19 04:10 Lab Results 01/19/19 01/19/19 01/19/19 04:10 04:10 04:10 WBC 23.5 H Hgb 9.5 L Hct 28.3 L Plt Count 219 Sodium 129 L Potassium 3.6 Chloride 92 L Carbon Dioxide 31 H BUN 31 H Creatinine 0.69 L Glucose 100 Calcium 8.9 Magnesium 2.0 Troponin I 01/19/19 10:45 WBC Hgb Hct Plt Count Sodium Potassium Chloride Carbon Dioxide BUN Creatinine Glucose Calcium Magnesium Troponin I 0.26 H* - Imaging and Cardiology Chest Xray: report reviewed Echo: report reviewed - EKG Interpretation EKG results cardiology: personally reviewed, sinus rhythm (Sinus tachycardia), left bundle branch block (Nonspecific ST segment changes) Consult Discharge Plan - Plan Referrals: Michael Gonzalez MD [Partnered Physician] - (Sent web request on 01-15-19 @ [phone]) Mika Stokes MD [Primary Care Provider] - 01/27/19 8:30 am <Pedrito Parikh - Last Filed: 01/20/19 15:38> Date of Encounter: 01/19/19 Time of Encounter: 15:00 - Attending Attestation I examined this patient and my medical decision-making was reviewed with the [facility]. I agree with the documented findings, disposition and treatment plan as described except to the extent set forth below. CC: shortness of breath HPI: Pt initially presented to outside hospital with complaints of shortness if breath, productive cough, bilateral lower extremity swelling. He was found to habe bronchitis and hyponatremia, treated for both, with some improvement in shortness of breath. He was subsequently transferred to [place] with ongoing SOB and hypotension. He was emergently intubated 01/16/19 with progressive hypoxia, hypercapnea. He was so far successfully liberated from vent earlier today. He is on BiPap with full face mask, is not a reliable historian, hx obtained from family at bedside. Pts family reports he has had multiple hospitalizations over last six months for recurrent bronchitis, hyponatremia. He has an elevated troponin, but denies chest pain, pressure, squeezing, or palpitations with this hospitalization. ROS: reviewed PMH: reviewed PE: pt seen and examined, agree with findings as documented. Labs, CHR, EKGs reviewed IMP: 1.Elevated troponin: multifactorial, suspect due primarily to demand ischemia with septic shock, will continue to monitor, pt is not a candidate for invasive strategy at this point, will follow with you. 2. Ischemic cardiomyopathy: Most recent EF 25%, with mildly decompensated, responding to medical tx, gentle diuresis 3. Acute respiratory failure: improving with gentle diuresis, off Vent, on 50% venti mask, still struggling, using ancillary muscles for respiration 4. Pnuemonia, defer to ICU team, Respiratory status remains tenuous, not clear he will be able to make it overnight off ventilator support. 5. CAD - stable, hx stents x 3, will get old records from [place]. 6. Bilat lower extremity edema, 2+, extends to knees, will need to increase diuretics, as blood pressure allows. Legs are hypoxic, will need bilat lower extremity arterial studies when blood pressure allows. Will follow with you. Assessment and Plan Discussion w patient/family: The assessment and plan as outlined above was discussed with the patient and/or family members who expressed understanding and agreement. All questions were answered. Thank you for involving us in the care of your patient. Please call with any questions. History of Present Illness History of present illness: Mr. Cheema is a 73 year old male All Systems Review: The remainder of the systems were reviewed and are negative Physical Examination Vital Signs, Last 4 Hours Temp 01/20/19 11:56 97.5 F L Results 01/20/19 06:30 01/20/19 06:30 Lab Results 01/19/19 01/19/19 01/19/19 15:00 16:00 16:46 WBC Hgb Hct Plt Count INR 1.1 APTT 30.0 Sodium Potassium 4.8 D Chloride Carbon Dioxide BUN Creatinine Glucose Calcium Magnesium Troponin I 5.58 H* 01/19/19 01/20/19 01/20/19 22:45 06:30 06:30 WBC 28.3 H Hgb 10.7 L Hct 32.2 L Plt Count 283 INR APTT Sodium 134 L Potassium 3.8 Chloride 94 L Carbon Dioxide 29 BUN 39 H Creatinine 0.95 Glucose 123 H Calcium 8.8 Magnesium 2.1 Troponin I 11.81 H* 01/20/19 06:30 WBC Hgb Hct Plt Count INR APTT Sodium Potassium Chloride Carbon Dioxide BUN Creatinine Glucose Calcium Magnesium Troponin I 25.39 H*
[2019-01-19] MEDS: methylPREDNISolone 125 MG/2 ML VIAL IVP SCH ×2 (15:23→23:35)
[2019-01-19] MEDS ORDERED: *HR* Heparin 5,000 UNIT/ML VIAL IVP PRN (16:46)
[2019-01-19] MEDS ORDERED: *HR* Heparin 5,000 UNIT/ML VIAL IVP ONE (16:46)
--- NOTE | 2019-01-19 17:11 | Event Note ---
<Malathi Cullen M - Last Filed: 01/19/19 17:03> Date of Encounter: 01/19/19 Time of Encounter: 16:55 After being extubated, the patient was in sinus tachycardia and diaphoretic. at 10:45 a troponin was obtained and was 0.26. EKG was obtained that showed sinus tachycardia with left bundle branch block, unchanged from prior. Patient had his aspirin. He was diaphoretic, however denied any chest pain. Cardiology consultation was obtained. Six-hour troponin was obtained at 1600 and was elevated at 5.58. Re-evaluated the patient and he denies chest pain, tolerated BiPAP at AVAPS settings, but still diaphoretic. Repaged Cardiology. Low-dose heparin drip was started for ACS protocol. Discussed with family at bedside. Dr. Aneudy Wheat, arson and bomb investigator Business Development Assistant, and Dr. Sánchez, patient's Business Development Assistant are at bedside to talk with patient and family at 17:10. <Miguel Wilson M - Last Filed: 01/19/19 20:44> Date of Encounter: 01/19/19 I examined this patient and my medical decision-making was reviewed with the Resident Physician. I agree with the documented findings, disposition and treatment plan as described except to the extent set forth below.
[2019-01-19 17:28] LABS: INR 1.1; Prothrombin Time 12.8 Seconds (9.4-12.1)
[2019-01-19] MEDS: Heparin 25,000 UNIT/250 ML D5W 25,000 UNIT/250 ML IV.SOLN IVC SCH (17:44)
--- NOTE | 2019-01-20 00:47 | Event Note ---
Date of Encounter: 01/20/19 Time of Encounter: 00:37 Notified of critical troponin at 0023 of 11.81 from 5.58. Patient examined at bedside resting comfortably on BiPAP, denies chest pain, non-diaphoretic, regular rhythm and tachycardic in the 90s to 100s on monitor. Dr. Aneudy Wheat on-call for cardiology was paged at 0031. Spoke with Dr. Wheat via phone at and informed him of the troponin at 11.81 and patient's current status. Dr. Aneudy Wheat confirmed plan to continue with heparin drip for now. Repeat troponin ordered for 0600.
[2019-01-20] MEDS: *HR* Heparin 5,000 UNIT/ML VIAL IVP PRN ×2 (00:56→08:52)
[2019-01-20] MEDS: Artificial Tears SOLN 15 ML BOTTLE BOTH EYES SCH ×2 (03:31→08:56)
[2019-01-20 05:06] LABS: ABG Base Excess 7 mEq/L (-2 to 3); ABG HCO3 32 mEq/L (21-27); ABG Oxygen Saturation 93 % (95-98); ABG PCO2 46 mmHg (35-45); ABG PH 7.45 pH Units (7.32-7.45); ABG PO2 66 mmHg (85-104); ABG TCO2 33 mEq/L (20-26); Blood Gas Modality ASSIST CONTROL; Blood Gas PEEP 8 cm H2O
--- NOTE | 2019-01-20 06:53 | Pulmonology Progress Note ---
<Malathi Cullen - Last Filed: 01/20/19 17:07> Date of Encounter: 01/20/19 Time of Encounter: 13:30 Assessment and Plan (1) Acute respiratory failure with hypoxia and hypercapnia Current Visit: Yes Status: Acute Emergent intubation and mechanical ventilation on 01/16 Patient extubated on 01/19. Now on oxymask Acute respiratory failure likely due to sepsis from pneumonia, likely aspiration, hypercapnea, progressing left pleural effusion CT chest from 01/18 shows multifocal airspace disease L>R, increased secondary to pneumonia and small bilateral pleural effusions S/p Bronchoscopy and bronchoalveolar lavage on 01/18 with left lower lobe pneumonia, atelectasis, mucous plug in left mainstem bronchus Repeat CXR today stable left basilar opacity BAL, culture, and cytology negative so far Positive coronavirus Continue with vancomycin and meropenem Continue IV Solu-medrol 60mg TID for 3 days Continue symbicort Respiratory therapy (2) Elevated troponin Current Visit: Yes Status: Acute Troponin elevated 0.26, 5.58, 11.81, 25.39 Initial concern for lower extremity ischemia and ANUPAM obtained this morning with RLE 1.26 and LLE 1.28 Possibly demand ischemia Appreciate Cardiology recommendations Continue with heparin drip (3) Pneumonia Current Visit: Yes Status: Acute S/p bronchoscopy on 01/18 Respiratory culture with normal respiratory nicole and acid fast stain negative Continue with IV vancomycin, day 5 and meropenem, day 3 Will need speech therapy consultation and swallow evaluation prior to initiating a diet Continue supplemental O2 Continue with steroids and bronchodilators as above Qualifiers: Pneumonia type: due to unspecified organism Laterality: left Lung location: lower lobe of lung Qualified Code(s): J18.1 - Lobar pneumonia, unspecified organism (4) Sepsis Current Visit: Yes Status: Acute Likely secondary to left lower lobe pneumonia Respiratory culture negative Blood cultures from 01/16 negative Urine legionella and strep pneumoniae Ag negative Continue with Vancomycin, day 5 and meropenem, day 3 Qualifiers: Sepsis type: sepsis due to unspecified organism Qualified Code(s): A41.9 - Sepsis, unspecified organism (5) Encephalopathy Current Visit: Yes Status: Acute Likely metabolic encephalopathy, multifactorial due to hypercapnia and hypoxic respiratory failure, hyponatremia, pneumonia Resolved. CT head and MRI brain with no acute abnormalities (6) Ischemic cardiomyopathy Current Visit: Yes Status: Acute Echocardiogram from 01/16 with LVEF 25-30%, severe global LV systolic dysfunction and bundle branch block CT chest from yesterday with small bilateral pleural effusions EKG with LBBB and new ST depressions Patient follows up with Dr. Sánchez, Cardiology and has AICD placement scheduled on 01/22/19 Appreciate Cardiology recommendations Resumed home meds (7) Hyponatremia Current Visit: Yes Status: Acute Na 134 today Urine osmolality 499, Urine Cr 49, urine sodium 69.4, urine potassium 29.9, cortisol 20.2 Continue with salt tubes and fluid restriction Nephrology following, appreciate their recommendations (8) Hypertension Current Visit: Yes Status: Chronic Stable, continue haldactone metoprolol, lasix Qualifiers: Hypertension type: essential hypertension Qualified Code(s): I10 - Es sential (primary) hypertension (9) Rectal mass Current Visit: Yes Status: Suspected CT abdomen with finding of a possible rectal mass Will need GI consult for colonoscopy once acute issues resolve (10) DVT prophylaxis Current Visit: Yes Status: Acute SQ heparin Objective PUL Vital signs: Last Vital Signs Temp 97.3 F L 01/20/19 04:00 Pulse 109 01/20/19 06:00 Resp 28 01/20/19 06:00 BP 87/60 01/20/19 06:00 Pulse Ox 92 01/20/19 06:00 General appearance: no acute distress, alert Eyes: nonicteric, other (right pupil bigger than left, which patient states is chronic. Pupils are round and reactive to light. EOMI) ENT: oropharynx moist Neck: no JVD Effort: other (Diminished breath sounds bilaterally otherwise clear) Cardiovascular: regular rate and rhythm Gastrointestinal: normoactive bowel sounds, soft, non-tender, non-distended Integumentary: other (warm, dry, intact) Extremities: other (mottling and blanching erythema of right foot to mid garcia, no lower extremity swelling, no calf tenderness. Bilateral radial, dorsalis pedis, and posterior tibialis pulses palpable and equal. Normal capillary refill) Musculoskeletal: no deformities CN II-XII normal, other (pupils round and reactive to light. EOMI. Bilateral upper extremity strength 4/5. LLE strength 5/5 and RLE strenght 4/5. Chronic RLE weakness that patient wears brace. no sensory deficits. Alert and oriented to person and place. Follows commands appropriately) mood appropriate, affect normal Results - Laboratory Findings CBC and BMP: 01/20/19 06:30 01/20/19 06:30 ABG ABG pH 7.45 pH Units (7.32-7.45) 01/20/19 05:02 ABG pCO2 46 mmHg (35-45) H 01/20/19 05:02 ABG pO2 66 mmHg (85-104) L 01/20/19 05:02 ABG O2 Saturation 93 % (95-98) L 01/20/19 05:02 PT/INR, D-dimer PT 12.8 Seconds (9.4-12.1) H 01/19/19 16:46 Abnormal lab findings: Abnormal lab results WBC 23.5 K/mcL (4.3-11.1) H 01/19/19 04:10 RBC 3.25 M/mcL (4.19-5.50) L 01/19/19 04:10 Hgb 9.5 g/dL (12.9-16.9) L 01/19/19 04:10 Hct 28.3 % (37.5-50.1) L 01/19/19 04:10 Neutrophils # 21.1 K/mcL (1.6-8.9) H 01/19/19 04:10 Lymphocytes # 0.4 K/mcL (0.6-4.6) L 01/19/19 04:10 PT 12.8 Seconds (9.4-12.1) H 01/19/19 16:46 Heparin Anti-Xa, Unfract 0.15 IU/mL (0.30-0.70) L 01/19/19 23:49 ABG pCO2 46 mmHg (35-45) H 01/20/19 05:02 ABG pO2 66 mmHg (85-104) L 01/20/19 05:02 ABG HCO3 32 mEq/L (21-27) H 01/20/19 05:02 ABG Total CO2 33 mEq/L (20-26) H 01/20/19 05:02 ABG O2 Saturation 93 % (95-98) L 01/20/19 05:02 ABG Base Excess 7 mEq/L (-2 to 3) H 01/20/19 05:02 Sodium 129 mEq/L (136-145) L 01/19/19 04:10 Chloride 92 mEq/L (98-107) L 01/19/19 04:10 Carbon Dioxide 31 mEq/L (23-29) H 01/19/19 04:10 BUN 31 mg/dL (8-23) H 01/19/19 04:10 Creatinine 0.69 mg/dL (0.70-1.30) L 01/19/19 04:10 BUN/Creatinine Ratio 45 (6-26) H 01/19/19 04:10 POC Glucose 115 mg/dL (70-99) H 01/20/19 03:18 Calculated Osmolality 275 (280-300) L 01/19/19 04:10 Phosphorus 7.5 mg/dL (2.7-4.5) H 01/19/19 15:00 Troponin I 11.81 ng/mL (< 0.04) H* 01/19/19 22:45 B-Natriuretic Peptide 336 pg/mL (Less than 100) H 01/15/19 03:20 Serum Total Protein 5.8 g/dL (6.4-8.9) L 01/16/19 14:10 Albumin 3.3 g/dL (3.5-5.7) L 01/16/19 14:10 TSH 0.302 mcIU/mL (0.340-5.600) L 01/15/19 03:20 Total T3 0.42 ng/mL (0.87-1.78) L 01/16/19 01:14 Urine Clarity Cloudy (Clear) A 01/16/19 13:10 Urine Protein 100 mg/dL (Neg-Trace) H 01/16/19 13:10 Urine Blood Large (Negative) H 01/16/19 13:10 Ur Leukocyte Esterase Trace (Negative) H 01/16/19 13:10 Urine Microscopic RBC TNTC per hpf (0-3) H 01/16/19 13:10 Urine Microscopic WBC 5-15 per hpf (0-3) H 01/16/19 13:10 Ur Squamous Epith Cells Many per lpf (None-Few) H 01/16/19 13:10 Ur Culture Indicated? NO. (NO) A 01/16/19 13:10 Fluid Appearance Cloudy (Clear) A 01/18/19 13:10 Vancomycin Trough 18 mcg/mL (5-10) H 01/18/19 03:46 Coronavirus NL63 (PCR) DETECTED (Not Detect) A 01/16/19 22:11 - Microbiology Findings Microbiology Findings: Microbiology, Last 48 Hours 01/18/19 13:10 Acid Fast Stain - Final Left Lower Lobe Lung 01/18/19 13:10 Respiratory Culture - Preliminary Left Lower Lobe Lung - Clinical Findings Intake & Output: Intake & Output 01/19/19 01/19/19 01/20/19 15:59 23:59 07:59 Intake Total 262 / 262 260 / 260 70 / 70 Output Total 100 / 100 900 / 900 300 / 300 Balance 162 / 162 -640 / -640 -230 / -230 Weight 84.4 kg 84.8 kg Consult Discharge Plan - Plan Referrals: Michael Gonzalez MD [Partnered Physician] - (Sent web request on 01-15-19 @ [phone]) Mika Stokes MD [Primary Care Provider] - 01/27/19 8:30 am Subjective Principal diagnosis: Hyponatremia Interval history: Patient initially being treated for hyponatremia and presented to the ICU on 01/16/19 for worsening altered mental status and acute on chronic respiratory failure. The patient was also hypotensive. A central line was placed in the right common femoral vein and pressors were started. The patient was intubated and started on mechanical ventilation. Patient has pneumonia, possible aspiration, and on IV cefepime, clindamycin and vancomycin. Coronavirus positive on respiratory panel. Patient is currently on oxymas. He states he is feeling better. He is less short of breath. He denies chest pain. He has no acute complaints. Denies nausea, abdominal pain, leg pain, calf pain, numbness, tingling. He states he feels generally weak. Patient states he has chronic anisicoria and had cataract surgery in the left eye. He also has chronic weakness of the right leg and wears a brace. We will consult physical therapy and occupational therapy to evaluate the patient. We will also reconsult speech therapy so that the patient can have a swallow study and be placed on a diet. Patient's troponin continues to rise and is 25.39 this morning. He has sinus rhythm, oxygenating on oxygen mask with good ventilation and oxygenation. Continue heparin drip. Had ANUPAM done for concern of acute lower extremity ischemia however this was normal. <Saadlla,Haval M - Last Filed: 01/21/19 06:17> Date of Encounter: 01/21/19 Objective PUL Vital signs: Last Vital Signs Temp 97.3 F L 01/20/19 04:00 Pulse 112 01/20/19 07:00 Resp 22 01/20/19 07:27 BP 103/56 01/20/19 07:00 Pulse Ox 90 01/20/19 07:27 Results - Laboratory Findings CBC and BMP: 01/21/19 03:31 01/21/19 03:31 ABG ABG pH 7.45 pH Units (7.32-7.45) 01/20/19 05:02 ABG pCO2 46 mmHg (35-45) H 01/20/19 05:02 ABG pO2 66 mmHg (85-104) L 01/20/19 05:02 ABG O2 Saturation 93 % (95-98) L 01/20/19 05:02 PT/INR, D-dimer PT 12.8 Seconds (9.4-12.1) H 01/19/19 16:46 Abnormal lab findings: Abnormal lab results WBC 28.3 K/mcL (4.3-11.1) H 01/20/19 06:30 RBC 3.62 M/mcL (4.19-5.50) L 01/20/19 06:30 Hgb 10.7 g/dL (12.9-16.9) L 01/20/19 06:30 Hct 32.2 % (37.5-50.1) L 01/20/19 06:30 Neutrophils # 26.5 K/mcL (1.6-8.9) H 01/20/19 06:30 Lymphocytes # 0.2 K/mcL (0.6-4.6) L 01/20/19 06:30 PT 12.8 Seconds (9.4-12.1) H 01/19/19 16:46 Heparin Anti-Xa, Unfract 0.27 IU/mL (0.30-0.70) L 01/20/19 06:26 ABG pCO2 46 mmHg (35-45) H 01/20/19 05:02 ABG pO2 66 mmHg (85-104) L 01/20/19 05:02 ABG HCO3 32 mEq/L (21-27) H 01/20/19 05:02 ABG Total CO2 33 mEq/L (20-26) H 01/20/19 05:02 ABG O2 Saturation 93 % (95-98) L 01/20/19 05:02 ABG Base Excess 7 mEq/L (-2 to 3) H 01/20/19 05:02 Sodium 134 mEq/L (136-145) L 01/20/19 06:30 Chloride 94 mEq/L (98-107) L 01/20/19 06:30 BUN 39 mg/dL (8-23) H 01/20/19 06:30 BUN/Creatinine Ratio 41 (6-26) H 01/20/19 06:30 Glucose 123 mg/dL (70-105) H 01/20/19 06:30 POC Glucose 105 mg/dL (70-99) H 01/20/19 07:28 Troponin I 25.39 ng/mL (< 0.04) H* 01/20/19 06:30 B-Natriuretic Peptide 336 pg/mL (Less than 100) H 01/15/19 03:20 Serum Total Protein 5.8 g/dL (6.4-8.9) L 01/16/19 14:10 Albumin 3.3 g/dL (3.5-5.7) L 01/16/19 14:10 TSH 0.302 mcIU/mL (0.340-5.600) L 01/15/19 03:20 Total T3 0.42 ng/mL (0.87-1.78) L 01/16/19 01:14 Urine Clarity Cloudy (Clear) A 01/16/19 13:10 Urine Protein 100 mg/dL (Neg-Trace) H 01/16/19 13:10 Urine Blood Large (Negative) H 01/16/19 13:10 Ur Leukocyte Esterase Trace (Negative) H 01/16/19 13:10 Urine Microscopic RBC TNTC per hpf (0-3) H 01/16/19 13:10 Urine Microscopic WBC 5-15 per hpf (0-3) H 01/16/19 13:10 Ur Squamous Epith Cells Many per lpf (None-Few) H 01/16/19 13:10 Ur Culture Indicated? NO. (NO) A 01/16/19 13:10 Fluid Appearance Cloudy (Clear) A 01/18/19 13:10 Vancomycin Trough 18 mcg/mL (5-10) H 01/18/19 03:46 Coronavirus NL63 (PCR) DETECTED (Not Detect) A 01/16/19 22:11 - Microbiology Findings Microbiology Findings: Microbiology, Last 48 Hours 01/18/19 13:10 Acid Fast Stain - Final Left Lower Lobe Lung 01/18/19 13:10 Respiratory Culture - Preliminary Left Lower Lobe Lung - Clinical Findings Intake & Output: Intake & Output 01/19/19 01/20/19 01/20/19 23:59 07:59 15:59 Intake Total 260 / 260 70 / 70 Output Total 900 / 900 300 / 300 Balance -640 / -640 -230 / -230 Weight 84.8 kg - Attending Attestation I examined this patient and my medical decision-making was reviewed with the Resident Physician. I agree with the documented findings, disposition and treatment plan as described except to the extent set forth below. Patient seen and examined. Labs, radiology, chart personally reviewed. 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 Cardiovascular: Troponin keep is going and this is concerning. Cardiology is following up, thought this is demand ischemia. We will defer management to cardiology team and Dr. Sánchez is aware of this patient. I have personally discussed with cardiology team and still for any invasive procedure such as cardiac catheterization. there is no evidence of any blockages on the doppler of the lower extremity which i feel this is probably poor perfusion from low cardiac output. GI: Nutrition per dietary and GI prophylaxis per routine Heme: DVT prophylaxis per routine ID: Continue antibiotics and plan to de-escalation Renal; urine out put and renal function reviewed Endorcine: blood glucose is monitored Lines: all lines checked and no evidence of infections Skin: skin care to prevent pressure ulcers per nursing routine care I had multiple discussion with the family at the bedside and they were updated. Overall prognosis remain poor for this patient.
[2019-01-20 07:03] LABS: Hemoglobin 10.7 g/dL (12.9-16.9)
[2019-01-20 07:04] LABS: Basophils # 0.1 K/mcL (0.0-0.2); Basophils % 0.2 %; Hematocrit 32.2 % (37.5-50.1); Immature Granulocytes % 1.5 % (0-4); Lymphocytes # 0.2 K/mcL (0.6-4.6); Lymphocytes % 0.6 %; Mean Corpuscular HGB Conc 33.2 g/dL (31.6-35.5); Mean Corpuscular Hemoglobin 29.6 pg (28.0-33.3); Mean Platelet Volume 9.5 fL (9.4-12.4); Monocytes # 1.1 K/mcL (0.0-1.3); Platelet Count 283 K/mcL (140-400); Red Blood Count 3.62 M/mcL (4.19-5.50); Red Cell Distribution Width 14.2 % (11.5-14.5); Segmented Neutrophils % 93.7 %
[2019-01-20 07:06] LABS: Neutrophils # 26.5 K/mcL (1.6-8.9)
[2019-01-20 07:22] LABS: BUN/Creatinine Ratio 41 (6-26); Blood Urea Nitrogen 39 mg/dL (8-23); Calcium 8.8 mg/dL (8.6-10.3); Carbon Dioxide 29 mEq/L (23-29); Chloride 94 mEq/L (98-107); Glucose 123 mg/dL (70-105); Magnesium 2.1 mg/dL (1.6-2.6); Osmolality,Calculated 289 (280-300); Phosphorous 3.6 mg/dL (2.7-4.5); Platelet Estimate Normal (Normal); Potassium 3.8 mEq/L (3.5-5.1); Sodium 134 mEq/L (136-145); eGFR For Non-African Americans > 60 (> 60)
[2019-01-20] MEDS: Budesonide/Formoterol 80/4.5 MDI IH SCH ×2 (07:50→20:20)
[2019-01-20] MEDS ORDERED: *HR* Metoprolol 5 MG/5 ML VIAL IVP SCH (08:45)
--- NOTE | 2019-01-20 08:49 | Cardiology Progress Note ---
<David Smith - Last Filed: 01/20/19 10:04> Date of Encounter: 01/20/19 Time of Encounter: 08:40 Assessment and Plan (1) Ischemic cardiomyopathy Current Visit: Yes Status: Acute Echo revealed LVEF 25-30%, severe global left ventricular systolic dysfunction, and atypical septal motion consistent with bundle branch block. Patient was previously scheduled to have a AICD insertion on 01/22/[address] Wheat. EKG reveals chronic left bundle branch block with new ST segment deviations. He developed diaphoresis and tachycardia but denies any associated chest pain. Continue medical management Aspirin, statin, and beta pavithra therapy as tolerated. (2) CAD (coronary artery disease) Current Visit: Yes Status: Chronic Patient with previous coronary stents 3. Continue aspirin, statin, and beta pavithra. Qualifiers: Coronary Disease-Associated Artery/Lesion type: [place] artery [place] vs. transplanted heart: [place] heart Associated angina: without angina Qualified Code(s): I25.10 - Atherosclerotic heart disease of [place] coronary artery without angina pectoris (3) Systolic CHF Current Visit: Yes Status: Chronic BNP elevated 336, CT chest revealed bilateral pleural effusions. Patient was on beta pavithra, ARB, and spironolactone therapy at home. Continue IV diuresis and beta pavithra. Resume home meds when able. Qualifiers: Heart failure chronicity: acute on chronic Qualified Code(s): I50.23 - Acute on chronic systolic (congestive) heart failure (4) Acute respiratory failure with hypoxia and hypercapnia Current Visit: Yes Status: Acute Management per primary team. (5) Pneumonia Current Visit: Yes Status: Acute Management per primary team. Qualifiers: Pneumonia type: due to unspecified organism Laterality: left Lung location: lower lobe of lung Qualified Code(s): J18.1 - Lobar pneumonia, unspecified organism (6) Hypertension Current Visit: Yes Status: Chronic Blood pressure is stable off vasopressors support. Patient was on beta pavithra, ARB, and spironolactone therapy at home. Continue beta pavithra was changed to scheduled dosing every 8 hours. Qualifiers: Hypertension type: essential hypertension Qualified Code(s): I10 - Ess ential (primary) hypertension (7) Hyperlipidemia Current Visit: No Status: Chronic Continue statin. Qualifiers: Hyperlipidemia type: unspecified Qualified Code(s): E78.5 - Hyperlipidemia, unspecified (8) Ischemia of right lower extremity Current Visit: Yes Status: Suspected Patient's troponin increased to 25.39 overnight likely secondary to lower extremity ischemia. Bilateral lower extremity doppler was ordered. Continue heparin drip. Consider vascular surgery consult. Discussion w patient/family: The assessment and plan as outlined above was discussed with the patient and/or family members who expressed understanding and agreement. All questions were answered. Thank you for involving us in the care of your patient. Please call with any questions. Objective Vital Signs, Last 4 Hours Pulse Resp BP Pulse Ox 01/20/19 07:27 22 90 01/20/19 07:00 112 32 103/56 90 01/20/19 06:00 109 28 87/60 92 01/20/19 05:00 110 22 87/57 94 General: Conversant (Mild respiratory distress, wearing BiPAP) HEENT: Atraumatic, Normocephaly Neck: No JVD, Normal carotid pulses Cardiac: Normal S1 and S2 (tachycardic), No Murmur Lungs: Other (Diminished breath sounds bilaterally) Neuro: Alert and responsive, No focal deficits noted Abdomen: Soft, Non-Tender Skin: Other (Lower extremities cold, mottled, decreased distal pulse RLE compared to LLE) Musculoskeletal: No Chest Wall Tenderness Extremities: No Clubbing, Other (Lower lower extremities cold, mottled, decrea sed distal pulse RLE compared to LLE) Results 01/20/19 06:30 01/20/19 06:30 Lab Results 01/19/19 01/19/19 01/19/19 10:45 15:00 16:00 WBC Hgb Hct Plt Count INR APTT Sodium Potassium 4.8 D Chloride Carbon Dioxide BUN Creatinine Glucose Calcium Magnesium Troponin I 0.26 H* 5.58 H* 01/19/19 01/19/19 01/20/19 16:46 22:45 06:30 WBC 28.3 H Hgb 10.7 L Hct 32.2 L Plt Count 283 INR 1.1 APTT 30.0 Sodium Potassium Chloride Carbon Dioxide BUN Creatinine Glucose Calcium Magnesium Troponin I 11.81 H* 01/20/19 01/20/19 06:30 06:30 WBC Hgb Hct Plt Count INR APTT Sodium 134 L Potassium 3.8 Chloride 94 L Carbon Dioxide 29 BUN 39 H Creatinine 0.95 Glucose 123 H Calcium 8.8 Magnesium 2.1 Troponin I 25.39 H* - Imaging and Cardiology Echo: report reviewed Consult Discharge Plan - Plan Referrals: Michael Gonzalez MD [Partnered Physician] - (Sent web request on 01-15-19 @ [phone]) Mika Stokes MD [Primary Care Provider] - 01/27/19 8:30 am Subjective Principal diagnosis: Hyponatremia Interval history: Patient seen and examined resting comfortably in bed wearing BiPAP. Patient is more conversant today in looks slightly improved. Patient is tachycardic this morning with stable blood pressure. Patient's troponin increased to 25.39 overnight likely secondary to lower extremity ischemia. Lower extremity doppler was ordered. He was started on a heparin drip. <Pedrito Parikh - Last Filed: 01/21/19 11:08> Date of Encounter: 01/20/19 Time of Encounter: 17:00 Assessment and Plan Discussion w patient/family: The assessment and plan as outlined above was discussed with the patient and/or family members who expressed understanding and agreement. All questions were answered. Thank you for involving us in the care of your patient. Please call with any questions. Objective Vital Signs, Last 4 Hours Temp Pulse Resp BP Pulse Ox 01/21/19 09:42 34 110/65 96 01/21/19 08:36 98.3 F 01/21/19 07:30 100 25 86/59 100 Results 01/21/19 03:31 01/21/19 03:31 Lab Results 01/21/19 01/21/19 03:31 03:31 WBC 41.0 H* Hgb 11.6 L Hct 35.7 L Plt Count 331 Sodium 138 Potassium 3.5 Chloride 94 L Carbon Dioxide 35 H BUN 41 H Creatinine 1.08 Glucose 177 H Calcium 9.1 Magnesium 2.2 Attestation: I examined this patient and my medical decision-making was reviewed with the Resident Physician. I agree with the documented findings, disposition and treatment plan as described except to the extent set forth below. CC: shortness of breath HPI: pt much more conversant today, reports shortness of breath has improved, denies chest pain, pressure or palpitations. Pt continues to have productive cough. He complains of bilat foot pain, described as dull ache. ROS: reviewed PMH: reviewed Labs, Xrays, EKGs reviewed, note troponin elevation 25 PE: pt seen and examined, agree with findings as documented, with exception of both feet dusky, mottled, beginning demarcation line at ankles bilaterally IMP/Plan 1. Acute respiratory failure improving, better respiratory effort, less SOB, 2. Elevated troponin, very concerning for myocardial ischemia, however pt is pain free, not a candidate for LHC without reintubation, will continue to observe for now, pt and family understand and accept risks. Will still need further ischemic evaluation when respiratory issues improved. 3. Bilateral foot ischemia, dopplers ordered, physical exam concerning for distal arterial embolization, await dopplers. 4. Acute on chronic systolic heart failure, slowly improving, known ischemic cardiomyopathy, will eventually need AICD.
[2019-01-20] MEDS: Furosemide 40 MG/4 ML VIAL IVP SCH ×2 (08:53→17:05)
[2019-01-20] MEDS: Spironolactone 25 MG TABLET PO SCH (08:53)
[2019-01-20] MEDS: Finasteride 5 MG TABLET PO SCH (08:53)
[2019-01-20] MEDS: Aspirin 81 MG TAB.CHEW PO SCH (08:53)
[2019-01-20] MEDS: methylPREDNISolone 125 MG/2 ML VIAL IVP SCH ×2 (08:54→17:04)
[2019-01-20] MEDS: Pantoprazole 40 MG VIAL IVP SCH (08:54)
[2019-01-20] MEDS: Meropenem 1,000 MG in Water for inj. (sterile) 20 ML 10 ML IVP SCH ×2 (08:54→17:05)
[2019-01-20] MEDS: Chlorhexidine Rinse 15 ML MOUTHWASH MM SCH (08:56)
[2019-01-20] MEDS: Heparin 25,000 UNIT/250 ML D5W 25,000 UNIT/250 ML IV.SOLN IVC SCH (15:37)
[2019-01-20] MEDS: *HR* Metoprolol 5 MG/5 ML VIAL IVP SCH (17:05)
--- NOTE | 2019-01-20 21:19 | Electrocardiograph Report ---
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
--- NOTE | 2019-01-20 21:29 | Electrocardiograph Report ---
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
[2019-01-21] MEDS: *HR* Metoprolol 5 MG/5 ML VIAL IVP SCH ×3 (00:30→09:35)
[2019-01-21] MEDS: Meropenem 1,000 MG in Water for inj. (sterile) 20 ML 10 ML IVP SCH ×2 (00:31→09:25)
[2019-01-21] MEDS: methylPREDNISolone 125 MG/2 ML VIAL IVP SCH ×2 (00:33→09:25)
[2019-01-21 03:41] LABS: Basophils % 0.2 %; Red Cell Distribution Width 14.2 % (11.5-14.5)
[2019-01-21 03:42] LABS: Basophils # 0.1 K/mcL (0.0-0.2); Hematocrit 35.7 % (37.5-50.1); Hemoglobin 11.6 g/dL (12.9-16.9); Lymphocytes # 0.1 K/mcL (0.6-4.6); Lymphocytes % 0.3 %; Mean Corpuscular HGB Conc 32.5 g/dL (31.6-35.5); Mean Corpuscular Hemoglobin 30.1 pg (28.0-33.3); Mean Corpuscular Volume 92.7 fL (83.0-100.0); Mean Platelet Volume 9.3 fL (9.4-12.4); Monocytes # 2.4 K/mcL (0.0-1.3); Monocytes % 5.9 %; Platelet Count 331 K/mcL (140-400); Red Blood Count 3.85 M/mcL (4.19-5.50); Segmented Neutrophils % 92.6 %
[2019-01-21 04:04] LABS: Platelet Estimate Normal (Normal)
[2019-01-21 04:12] LABS: BUN/Creatinine Ratio 38 (6-26); Blood Urea Nitrogen 41 mg/dL (8-23); Calcium 9.1 mg/dL (8.6-10.3); Carbon Dioxide 35 mEq/L (23-29); Chloride 94 mEq/L (98-107); Glucose 177 mg/dL (70-105); Magnesium 2.2 mg/dL (1.6-2.6); Osmolality,Calculated 300 (280-300); Phosphorous 6.3 mg/dL (2.7-4.5); Potassium 3.5 mEq/L (3.5-5.1); Sodium 138 mEq/L (136-145); eGFR For Non-African Americans > 60 (> 60)
[2019-01-21 06:05] LABS: ABG Base Excess 10 mEq/L (-2 to 3); ABG HCO3 36 mEq/L (21-27); ABG Oxygen Saturation 87 % (95-98); ABG PCO2 53 mmHg (35-45); ABG PH 7.44 pH Units (7.32-7.45); ABG PO2 52 mmHg (85-104); ABG TCO2 38 mEq/L (20-26); Blood Gas Modality Avaps; Blood Gas PEEP 8 cm H2O; Blood Gas Respiration Rate 12; Blood Gas VT 500 cc
--- NOTE | 2019-01-21 07:14 | Pulmonology Progress Note ---
Addendum entered and electronically signed by Malathi Cullen 01/21/19 10:48: Addendum to assesment and plan Sepsis Leukocytosis likely worse secondary to IV Solu-mdrol, which will be discontinued today, and stress induced from elevated troponin/NSTEMI Original Note: <Malathi Cullen - Last Filed: 01/21/19 10:45> Date of Encounter: 01/21/19 Time of Encounter: 07:25 Assessment and Plan (1) Acute respiratory failure with hypoxia and hypercapnia Current Visit: Yes Status: Acute Emergent intubation and mechanical ventilation on 01/16 Patient extubated on 01/19. BiPAP at night and supplemental O2 during the day Acute respiratory failure likely due to sepsis from pneumonia, likely aspiration, hypercapnea, progressing left pleural effusion CT chest from 01/18 shows multifocal airspace disease L>R, increased secondary to pneumonia and small bilateral pleural effusions S/p Bronchoscopy and bronchoalveolar lavage on 01/18 with left lower lobe pneumonia, atelectasis, mucous plug in left mainstem bronchus Respiratory culture with normal respiratory nicole Positive coronavirus S/p 5 days with vancomycin. This has been discontinued Continue with meropenem, day 4 Will discontinue IV Solumedrol Continue with symbicort Respiratory therapy (2) Elevated troponin Current Visit: Yes Status: Acute Troponin elevated 0.26, 5.58, 11.81, 25.39 Likely NSTEMI Initial concern for lower extremity ischemia and ANUPAM obtained this morning with RLE 1.26 and LLE 1.28 and normal RLE doppler without ischemia Appreciate Cardiology recommendations Continue with heparin drip for 48 hours Continue ASA, statin, lopressor q6h with BP parameters (3) Pneumonia Current Visit: Yes Status: Acute S/p bronchoscopy on 01/18 Respiratory culture with normal respiratory nicole and acid fast stain negative Vancomycin discontinued. Continue meropenem, day 4 Continue BiPAP at night and as needed during day Qualifiers: Pneumonia type: due to unspecified organism Laterality: left Lung location: lower lobe of lung Qualified Code(s): J18.1 - Lobar pneumonia, unspecified organism (4) Sepsis Current Visit: Yes Status: Acute Likely secondary to left lower lobe pneumonia Respiratory culture negative Blood cultures from 01/16 negative Urine legionella and strep pneumoniae Ag negative Continue meropenem day 4 Qualifiers: Sepsis type: sepsis due to unspecified organism Qualified Code(s): A41.9 - Sepsis, unspecified organism (5) Encephalopathy Current Visit: Yes Status: Acute Resolved. Likely metabolic encephalopathy, multifactorial due to hypercapnia and hypoxic respiratory failure, hyponatremia, pneumonia CT head and MRI brain with no acute abnormalities (6) Ischemic cardiomyopathy Current Visit: Yes Status: Acute Echocardiogram from 01/16 with LVEF 25-30%, severe global LV systolic dysfunction and bundle branch block EKG from two days ago with LBBB and new ST changes Patient follows up with Dr. Sánchez, Cardiology and has AICD placement scheduled on 01/22/[address] Wheat Cardiology following Continue statin, aspirin, BB (7) Hyponatremia Current Visit: Yes Status: Resolved Salt tabs discontinued (8) Hypertension Current Visit: Yes Status: Chronic Initially hypotensive today. Will give albumin Lopressor with BP parameters Qualifiers: Hypertension type: essential hypertension Qualified Code(s): I10 - Essential (primary) hypertension (9) Rectal mass Current Visit: Yes Status: Suspected CT abdomen with finding of a possible rectal mass Will need GI consult for colonoscopy once acute issues resolve (10) DVT prophylaxis Current Visit: Yes Status: Acute SQ heparin Subjective Principal diagnosis: Hyponatremia Interval history: Patient initially being treated for hyponatremia and presented to the ICU on 01/16/19 for worsening altered mental status and acute on chronic respiratory fa ilure. The patient was also hypotensive. A central line was placed in the right common femoral vein and pressors were started. The patient was intubated and started on mechanical ventilation. Patient has pneumonia, possible aspiration, and on IV cefepime, clindamycin and vancomycin. Coronavirus positive on respiratory panel. Patient had increased troponin, likely NSTEMI, evaluated by Cardiology. ON heparin drip. No intervention for now. Lower extremity doppler negative for ischemia and ANUPAM normal. Patient on BiPAP overnight. Patient is sleeping but awakens to his name. He is following commands appropriately. He denies shortness of breath or chest pain. He denies abdominal pain or nausea. He does not have any pain. Blood pressure is hypotensive and will give albumin. Patient is tolerating a soft diet and states he is feeling hungry this morning. Objective PUL Vital signs: Last Vital Signs Temp 96.5 F L 01/21/19 03:33 Pulse 95 01/21/19 06:00 Resp 21 01/21/19 06:00 BP 82/62 01/21/19 06:00 Pulse Ox 94 01/21/19 06:00 General appearance: no acute distress, alert Eyes: nonicteric, other (normal conjunctiva, mild anisicoria, pupils round and reactive to light) ENT: oropharynx moist Neck: supple, no JVD Effort: other (Diminished breath sounds bilaterally otherwise clear) Cardiovascular: other (tachycardic, normal rhythm) Gastrointestinal: normoactive bowel sounds, soft, non-tender, non-distended Integumentary: other (blanching erythema or right foot, warm, dry, intact) Extremities: no cyanosis, no edema, other (no calf tenderness, bilateral dorsalis pedis pulses palpable and equal) Musculoskeletal: no deformities CN II-XII normal, motor strength normal and symmetric, other mood appropriate, affect normal Results - Laboratory Findings CBC and BMP: 01/21/19 03:31 01/21/19 03:31 ABG ABG pH 7.44 pH Units (7.32-7.45) 01/21/19 06:02 ABG pCO2 53 mmHg (35-45) H 01/21/19 06:02 ABG pO2 52 mmHg (85-104) L 01/21/19 06:02 ABG O2 Saturation 87 % (95-98) L 01/21/19 06:02 PT/INR, D-dimer PT 12.8 Seconds (9.4-12.1) H 01/19/19 16:46 Abnormal lab findings: Abnormal lab results WBC 41.0 K/mcL (4.3-11.1) H* 01/21/19 03:31 RBC 3.85 M/mcL (4.19-5.50) L 01/21/19 03:31 Hgb 11.6 g/dL (12.9-16.9) L 01/21/19 03:31 Hct 35.7 % (37.5-50.1) L 01/21/19 03:31 MPV 9.3 fL (9.4-12.4) L 01/21/19 03:31 Neutrophils # 38.0 K/mcL (1.6-8.9) H 01/21/19 03:31 Lymphocytes # 0.1 K/mcL (0.6-4.6) L 01/21/19 03:31 Monocytes # 2.4 K/mcL (0.0-1.3) H 01/21/19 03:31 PT 12.8 Seconds (9.4-12.1) H 01/19/19 16:46 ABG pCO2 53 mmHg (35-45) H 01/21/19 06:02 ABG pO2 52 mmHg (85-104) L 01/21/19 06:02 ABG HCO3 36 mEq/L (21-27) H 01/21/19 06:02 ABG Total CO2 38 mEq/L (20-26) H 01/21/19 06:02 ABG O2 Saturation 87 % (95-98) L 01/21/19 06:02 ABG Base Excess 10 mEq/L (-2 to 3) H 01/21/19 06:02 Chloride 94 mEq/L (98-107) L 01/21/19 03:31 Carbon Dioxide 35 mEq/L (23-29) H 01/21/19 03:31 BUN 41 mg/dL (8-23) H 01/21/19 03:31 BUN/Creatinine Ratio 38 (6-26) H 01/21/19 03:31 Glucose 177 mg/dL (70-105) H 01/21/19 03:31 POC Glucose 166 mg/dL (70-99) H 01/21/19 05:00 Phosphorus 6.3 mg/dL (2.7-4.5) H 01/21/19 03:31 Troponin I 25.39 ng/mL (< 0.04) H* 01/20/19 06:30 B-Natriuretic Peptide 336 pg/mL (Less than 100) H 01/15/19 03:20 Serum Total Protein 5.8 g/dL (6.4-8.9) L 01/16/19 14:10 Albumin 3.3 g/dL (3.5-5.7) L 01/16/19 14:10 TSH 0.302 mcIU/mL (0.340-5.600) L 01/15/19 03:20 Total T3 0.42 ng/mL (0.87-1.78) L 01/16/19 01:14 Urine Clarity Cloudy (Clear) A 01/16/19 13:10 Urine Protein 100 mg/dL (Neg-Trace) H 01/16/19 13:10 Urine Blood Large (Negative) H 01/16/19 13:10 Ur Leukocyte Esterase Trace (Negative) H 01/16/19 13:10 Urine Microscopic RBC TNTC per hpf (0-3) H 01/16/19 13:10 Urine Microscopic WBC 5-15 per hpf (0-3) H 01/16/19 13:10 Ur Squamous Epith Cells Many per lpf (None-Few) H 01/16/19 13:10 Ur Culture Indicated? NO. (NO) A 01/16/19 13:10 Fluid Appearance Cloudy (Clear) A 01/18/19 13:10 Vancomycin Trough 30 mcg/mL (5-10) H 01/21/19 03:31 Coronavirus NL63 (PCR) DETECTED (Not Detect) A 01/16/19 22:11 - Microbiology Findings Microbiology Findings: Microbiology, Last 48 Hours 01/18/19 13:10 Respiratory Culture - Preliminary Left Lower Lobe Lung 01/18/19 13:10 Acid Fast Stain - Final Left Lower Lobe Lung - Clinical Findings Intake & Output: Intake & Output 01/20/19 01/20/19 01/21/19 15:59 23:59 07:59 Intake Total 440 / 440 375 / 375 10 / 10 Output Total 1075 / 1075 1025 / 1025 400 / 400 Balance -635 / -635 -650 / -650 -390 / -390 Weight 78.4 kg Consult Discharge Plan - Plan Referrals: Michael Gonzalez MD [Partnered Physician] - (Sent web request on 01-15-19 @ [phone]) Mika Stokes MD [Primary Care Provider] - 01/27/19 8:30 am <Miguel Wilson - Last Filed: 01/21/19 15:43> Date of Encounter: 01/21/19 Objective PUL Vital signs: Last Vital Signs Temp 98.3 F 01/21/19 08:36 Pulse 100 01/21/19 07:30 Resp 34 01/21/19 09:42 BP 110/65 01/21/19 09:42 Pulse Ox 96 01/21/19 09:42 Results - Laboratory Findings CBC and BMP: 01/21/19 03:31 01/21/19 03:31 ABG ABG pH 7.44 pH Units (7.32-7.45) 01/21/19 06:02 ABG pCO2 53 mmHg (35-45) H 01/21/19 06:02 ABG pO2 52 mmHg (85-104) L 01/21/19 06:02 ABG O2 Saturation 87 % (95-98) L 01/21/19 06:02 PT/INR, D-dimer PT 12.8 Seconds (9.4-12.1) H 01/19/19 16:46 Abnormal lab findings: Abnormal lab results WBC 41.0 K/mcL (4.3-11.1) H* 01/21/19 03:31 RBC 3.85 M/mcL (4.19-5.50) L 01/21/19 03:31 Hgb 11.6 g/dL (12.9-16.9) L 01/21/19 03:31 Hct 35.7 % (37.5-50.1) L 01/21/19 03:31 MPV 9.3 fL (9.4-12.4) L 01/21/19 03:31 Neutrophils # 38.0 K/mcL (1.6-8.9) H 01/21/19 03:31 Lymphocytes # 0.1 K/mcL (0.6-4.6) L 01/21/19 03:31 Monocytes # 2.4 K/mcL (0.0-1.3) H 01/21/19 03:31 PT 12.8 Seconds (9.4-12.1) H 01/19/19 16:46 ABG pCO2 53 mmHg (35-45) H 01/21/19 06:02 ABG pO2 52 mmHg (85-104) L 01/21/19 06:02 ABG HCO3 36 mEq/L (21-27) H 01/21/19 06:02 ABG Total CO2 38 mEq/L (20-26) H 01/21/19 06:02 ABG O2 Saturation 87 % (95-98) L 01/21/19 06:02 ABG Base Excess 10 mEq/L (-2 to 3) H 01/21/19 06:02 Chloride 94 mEq/L (98-107) L 01/21/19 03:31 Carbon Dioxide 35 mEq/L (23-29) H 01/21/19 03:31 BUN 41 mg/dL (8-23) H 01/21/19 03:31 BUN/Creatinine Ratio 38 (6-26) H 01/21/19 03:31 Glucose 177 mg/dL (70-105) H 01/21/19 03:31 POC Glucose 137 mg/dL (70-99) H 01/21/19 07:24 Phosphorus 6.3 mg/dL (2.7-4.5) H 01/21/19 03:31 Troponin I 25.39 ng/mL (< 0.04) H* 01/20/19 06:30 B-Natriuretic Peptide 336 pg/mL (Less than 100) H 01/15/19 03:20 Serum Total Protein 5.8 g/dL (6.4-8.9) L 01/16/19 14:10 Albumin 3.3 g/dL (3.5-5.7) L 01/16/19 14:10 TSH 0.302 mcIU/mL (0.340-5.600) L 01/15/19 03:20 Total T3 0.42 ng/mL (0.87-1.78) L 01/16/19 01:14 Urine Clarity Cloudy (Clear) A 01/16/19 13:10 Urine Protein 100 mg/dL (Neg-Trace) H 01/16/19 13:10 Urine Blood Large (Negative) H 01/16/19 13:10 Ur Leukocyte Esterase Trace (Negative) H 01/16/19 13:10 Urine Microscopic RBC TNTC per hpf (0-3) H 01/16/19 13:10 Urine Microscopic WBC 5-15 per hpf (0-3) H 01/16/19 13:10 Ur Squamous Epith Cells Many per lpf (None-Few) H 01/16/19 13:10 Ur Culture Indicated? NO. (NO) A 01/16/19 13:10 Fluid Appearance Cloudy (Clear) A 01/18/19 13:10 Vancomycin Trough 30 mcg/mL (5-10) H 01/21/19 03:31 Coronavirus NL63 (PCR) DETECTED (Not Detect) A 01/16/19 22:11 - Microbiology Findings Microbiology Findings: Microbiology, Last 48 Hours 01/18/19 13:10 Respiratory Culture - Final Left Lower Lobe Lung 01/18/19 13:10 Acid Fast Stain - Final Left Lower Lobe Lung - Clinical Findings Intake & Output: Intake & Output 01/20/19 01/21/1901/21/19 23:59 07:59 15:59 Intake Total 375 / 375 10 / 10 135 / 135 Output Total 1025 / 1025 400 / 400 175 / 175 Balance -650 / -650 -390 / -390 -40 / -40 Weight 78.4 kg - Attending Attestation I examined this patient and my medical decision-making was reviewed with the Resident Physician. I agree with the documented findings, disposition and treatment plan as described except to the extent set forth below. Patient seen and examined. Labs, radiology, chart personally reviewed. 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 Pulmonary: Acceptable oxygenation and ventilation and patient with improvement with noninvasive ventilation and he is being treated adequately for his pneumonia and with his unstable cardiac event he is at risk could end up on invasive mechanical ventilation again. Cardiovascular: unstable and will give Amiodarone and cardiology is aware. Patient need AICD. Patient has seen by cardiology and please refer to their note regarding transferred to [place]. GI: Nutrition per dietary and GI prophylaxis per routine. This is concerning since patient nutrition is not the best with him in on noninvasive ventilation. Heme: DVT prophylaxis per routine ID: Continue antibiotics and plan to de-escalation. Needs to change the central line. Leukocytosis could be explained due to multiple reasons and robust infection in the differential diagnosis, however clinically he is improving and other causes for leukocytosis could be stress related or medication such as steroid. Renal; urine out put and renal funtion reviewed Endorcine: blood glucose is monitored Lines: all lines checked and no evidence of infections Skin: skin care to prevent pressure ulcers per nursing routine care I had multiple discussion with the family at the bedside and they feel it is appropriate due to his comorbidities and still family is somewhat confused about his condition since they are stating they are getting mixed messages and they can understand that and I tried my best in the presence of the nurse to explain to them the situation. I spent 45 min of Critical Care time with this patient. It involved decision making of high complexity to assess, manipulate, and support vital organ system failure and/or to prevent further life threatening deterioration of the patient's condition. The time involved in the performance of separately reportable procedures was not counted toward critical care time.
--- NOTE | 2019-01-21 08:14 | Cardiology Progress Note ---
<David Smith - Last Filed: 01/21/19 11:08> Date of Encounter: 01/21/19 Time of Encounter: 08:10 Assessment and Plan (1) Ischemic cardiomyopathy Current Visit: Yes Status: Acute Patient's troponin increased to 25.39 likely secondary to demand ischemia. Echo revealed LVEF 25-30%, severe global left ventricular systolic dysfunction, and atypical septal motion consistent with bundle branch block. Patient was previously scheduled to have a AICD insertion on 01/22/[address] Wheat. EKG reveals chronic left bundle branch block with new ST segment deviations. He developed diaphoresis and tachycardia but denies any associated chest pain. Continue medical management Aspirin, statin, and beta pavithra therapy as tolerated. Lower extremity doppler was negative for ischemia. Patient had 6 beats of NSVT this morning. Continue heparin drip. Consider [facility] to evaluate for cardiac ischemia, however patient is unable to lay flat and is at high risk for re-intubation. Will discuss risks and benefits with family. (2) CAD (coronary artery disease) Current Visit: Yes Status: Chronic Patient with previous coronary stents 3. Continue aspirin, statin, and beta pavithra. Qualifiers: Coronary Disease-Associated Artery/Lesion type: [place] artery [place] vs. transplanted heart: [place] heart Associated angina: without angina Qualified Code(s): I25.10 - Atherosclerotic heart disease of [place] coronary artery without angina pectoris (3) Systolic CHF Current Visit: Yes Status: Chronic BNP elevated 336, CT chest revealed bilateral pleural effusions. Patient was on beta pavithra, ARB, and spironolactone therapy at home. Continue IV diuresis and beta pavithra. Resume home meds when able. Qualifiers: Heart failure chronicity: acute on chronic Qualified Code(s): I50.23 - Acute on chronic systolic (congestive) heart failure (4) Acute respiratory failure with hypoxia and hypercapnia Current Visit: Yes Status: Acute Management per primary team. (5) Pneumonia Current Visit: Yes Status: Acute Management per primary team. Qualifiers: Pneumonia type: due to unspecified organism Laterality: left Lung location: lower lobe of lung Qualified Code(s): J18.1 - Lobar pneumonia, unspecified organism (6) Hypertension Current Visit: Yes Status: Chronic Blood pressure is stable off vasopressors support. Patient was on beta pavithra, ARB, and spironolactone therapy at home. Continue beta pavithra scheduled every 8 hours. Qualifiers: Hypertension type: essential hypertension Qualified Code(s): I10 - Essential (primary) hypertension (7) Hyperlipidemia Current Visit: No Status: Chronic Continue statin. Qualifiers: Hyperlipidemia type: unspecified Qualified Code(s): E78.5 - Hyperlipidemia, unspecified Discussion w patient/family: The assessment and plan as outlined above was discussed with the patient and/or family members who expressed understanding and agreement. All questions were answered. Thank you for involving us in the care of your patient. Please call with any questions. Subjective Principal diagnosis: Hyponatremia Interval history: Patient seen and examined resting comfortably in bed wearing BiPAP. Patient had 6 beats of NSVT this morning. Patient's lower extremity doppler was negative for ischemia. He remains on a heparin drip and is still unable to lay flat. Objective Vital Signs, Last 4 Hours Pulse Resp BP Pulse Ox 01/21/19 06:00 95 21 82/62 94 01/21/19 05:00 97 21 107/82 96 01/21/19 04:34 26 120/67 95 General: Conversant, No Apparent Distress HEENT: Atraumatic, Normocephaly Cardiac: Normal S1 and S2 (tachycardic) Lungs: Other (diminished breath sounds bilaterally) Neuro: Alert and responsive, No focal deficits noted Abdomen: Soft, Non-Tender Skin: Other (Lower lower extremities cool, mottled, intact distal pulses) Musculoskeletal: No Chest Wall Tenderness Extremities: No Clubbing, No Edema, Normal Pulses Results 01/21/19 03:31 01/21/19 03:31 Lab Results 01/21/19 01/21/19 03:31 03:31 WBC 41.0 H* Hgb 11.6 L Hct 35.7 L Plt Count 331 Sodium 138 Potassium 3.5 Chloride 94 L Carbon Dioxide 35 H BUN 41 H Creatinine 1.08 Glucose 177 H Calcium 9.1 Magnesium 2.2 Consult Discharge Plan - Plan Referrals: Michael Gonzalez MD [Partnered Physician] - (Sent web request on 01-15-19 @ [id number]) Mika Stokes MD [Primary Care Provider] - 01/27/19 8:30 am <Pedrito Parikh - Last Filed: 01/21/19 12:36> Date of Encounter: 01/21/19 Assessment and Plan Discussion w patient/family: The assessment and plan as outlined above was discussed with the patient and/or family members who expressed understanding and agreement. All questions were answered. Thank you for involving us in the care of your patient. Please call with any questions. Objective Vital Signs, Last 4 Hours Temp Resp BP Pulse Ox 01/21/19 12:18 98.1 F 01/21/19 09:42 34 110/65 96 01/21/19 08:36 98.3 F Results 01/21/19 03:31 01/21/19 03:31 Lab Results 01/21/19 01/21/19 03:31 03:31 WBC 41.0 H* Hgb 11.6 L Hct 35.7 L Plt Count 331 Sodium 138 Potassium 3.5 Chloride 94 L Carbon Dioxide 35 H BUN 41 H Creatinine 1.08 Glucose 177 H Calcium 9.1 Magnesium 2.2 - Attending Attestation I examined this patient and my medical decision-making was reviewed with the Resident Physician. I agree with the documented findings, disposition and treatment plan as described except to the extent set forth below. CC: shortness of breath HPI: Pt reports shortness of breath better at rest, sitting up, unable to tolerate lying flat past 30 degrees. PT had episode of NSVT this am, asymptomatic, denies chest pain, pressure or palpitations. ROS: reviewed PMH: reviewed Labs, Xray, EKG pending PE: pt seen and examined, agree with findings as documented IMP/Plan: 1. NSVT, back in sinus tach on IV amiodarone, very concerning for ongoing myocardial ischemia, known severe triple vessel CAD with elevated troponin, recommend LHC/Poss, high risk, will most likely need reintubation for procedure, discussed with pts attending boxing instructor Dr. Sánchez, recommends transfer to tertiary care facitlity for procedure. Discussed with pt and family at bedside, all agree, Pt has Medigold, will need to go to [facility], will begin transfer arrangements. 2. Elevated troponin, not clear if due to demand ischemia or ongoing ischemia, plan C when can be stablized. 3. Pneumonia with borderline respiratory failure, sucessfully liberated from vent, however is tenuous on Bipap, continue supportive care 4. Dilated ischemic cardiomyopathy: severly impaired LV systolic function with borderline compensated acute on chronic systolic heart failure, was scheduled for AICD before this acute event. 5. CAD severe triple vessel CAD, status post multiple PCISs
[2019-01-21] MEDS: Finasteride 5 MG TABLET PO SCH (09:25)
[2019-01-21] MEDS: Spironolactone 25 MG TABLET PO SCH (09:25)
[2019-01-21] MEDS: Aspirin 81 MG TAB.CHEW PO SCH (09:25)
[2019-01-21] MEDS: Furosemide 40 MG/4 ML VIAL IVP SCH (09:26)
[2019-01-21] MEDS: Heparin 25,000 UNIT/250 ML D5W 25,000 UNIT/250 ML IV.SOLN IVC SCH (09:28)
[2019-01-21] MEDS ORDERED: Amiodarone Premix 150 MG/100 ML BAG IVPB ONE ×2 (09:41→09:51)
[2019-01-21] MEDS ORDERED: Amiodarone Premix 360 MG/200 ML BAG IVC ONE ×3 (09:42→16:08)
[2019-01-21] MEDS: Budesonide/Formoterol 80/4.5 MDI IH SCH (09:42)
--- NOTE | 2019-01-21 10:01 | Event Note ---
<Malathi Cullen M - Last Filed: 01/21/19 11:17> Date of Encounter: 01/21/19 Time of Encounter: 09:45 Patient was off of BiPAP and O2 saturation decreased. Patient was diaphoretic. Placed back on with improvement in oxygenation. Patient's heart rate increased to 160, sinus tachycardia. Had a 6 beat run of ventricular tachycardia and then was in atrial fibrillation with RVR. EKG obtained. Pacer pads placed on patient's chest. Amiodarone bolus and drip was initiated. Cardiology was updated. EKG shows atrial fibrillation with RVR and LBBB. Stat troponin ordered. At 1015, patient is back in sinus rhythm with rate 100. BP has been normotensive. <Miguel Wilson M - Last Filed: 01/21/19 15:39> Date of Encounter: 01/21/19 I examined this patient and my medical decision-making was reviewed with the Resident Physician. I agree with the documented findings, disposition and treatment plan as described except to the extent set forth above. Patient added and with arrhythmia and he was given amiodarone as well as beta pavithra. Patient was evaluated by cardiology.
--- NOTE | 2019-01-21 12:54 | Discharge Summary ---
Addendum entered and electronically signed by Malathi Cullen 01/21/19 15:09: Addendum to plan of care: Patient is now accepted to [facility]. There is a bed available for him and patient is accepted and will be transfered to [facility]. Original Note: <Malathi Cullen - Last Filed: 01/21/19 12:51> Orders not resulted at time of discharge: Pending orders 01/16/19 12:34 Culture,Blood [BC] Stat 01/16/19 17:18 Culture,Blood [BC] Stat 01/18/19 11:56 Sputum Culture [Culture,Sputum with Gram Stain] [RM] Stat 01/18/19 13:10 AFB Culture, Respiratory [TB] Routine AFB Smear [TB] Routine Fungal Culture [MYC] Routine Herpes Simplex PCR Body Fl Routine Legionella Culture [RM] Routine Resp.Virus Panel,Body Fl Routine 01/21/19 09:43 Troponin I Stat 01/21/19 22:52 Heparin anti-factor XA UFH [COAG] Timed Date of Encounter: 01/21/19 Time of Encounter: 12:30 - Discharge Diagnosis (1) Elevated troponin Priority: Primary Status: Acute Comments: Likely secondary to NSTEMI Transfer to [facility] for possible LHC. High risk, and may need reintubation History of triple vessel disease, 3 stent placements (2) Non-sustained ventricular tachycardia Priority: Secondary Status: Acute Comments: 6 beats, likely ongoing myocardial infarction. now in sinus tachycardia (3) Acute respiratory failure with hypoxia and hypercapnia Priority: Secondary Status: Acute Comments: Likely secondary to sepsis from pneumonia, hypercapnea On BIPAP (4) Pneumonia Priority: Secondary Status: Acute Comments: LLL pneumonia Repiratory culture with normal respiraotry nicole positive coronavirus Qualifiers: Pneumonia type: due to unspecified organism Laterality: left Lung location: lower lobe of lung Qualified Code(s): J18.1 - Lobar pneumonia, unspecified organism (5) Sepsis Priority: Secondary Status: Acute Comments: Likely due to pneumonia Blood cultures negative Qualifiers: Sepsis type: sepsis due to unspecified organism Qualified Code(s): A41.9 - Sepsis, unspecified organism (6) Encephalopathy Priority: Secondary Status: Acute Comments: Likely metabolic encephalopathy, multifactorial due to hypercapnia and hypoxic respiratory failure, hyponatremia, resolved. (7) Ischemic cardiomyopathy Priority: Secondary Status: Acute Comments: EF 25-30% (8) Hyponatremia Priority: Secondary Status: Resolved (9) Hypertension Priority: Secondary Status: Chronic Qualifiers: Hypertension type: essential hypertension Qualified Code(s): I10 - Essential (primary) hypertension (10) Rectal mass Priority: Secondary Status: Suspected Comments: CT abdomen with finding of a possible rectal mass (11) DVT prophylaxis Priority: Secondary Status: Acute - Discharge Medications Prescriptions: No Action RX: Finasteride [Proscar] 5 mg PO DAILY RX: Losartan/Hydrochlorothiazide [Hyzaar 100-25 Tablet] 1 each PO DAILY RX: Spironolactone [Aldactone] 25 mg PO DAILY RX: Metoprolol XL (24 HR) Succ [Toprol Xl] 50 mg PO DAILY RX: Atorvastatin [Lipitor] 40 mg PO HS Aspirin [Lo-Dose Aspirin EC] 81 mg PO DAILY Acetaminophen [Tylenol] 1,000 mg PO DAILY Melatonin [Melatin] 3 mg PO HS PRN PRN Reason: Sleep Home Medications: RX: Atorvastatin [Lipitor] 40 mg PO HS 05/13/17 [History] RX: Finasteride [Proscar] 5 mg PO DAILY 05/13/17 [History] RX: Losartan/Hydrochlorothiazide [Hyzaar 100-25 Tablet] 1 each PO DAILY 05/13/17 [History] RX: Metoprolol XL (24 HR) Succ [Toprol Xl] 50 mg PO DAILY 05/13/17 [History] RX: Spironolactone [Aldactone] 25 mg PO DAILY 05/13/17 [History] Acetaminophen [Tylenol] 1,000 mg PO DAILY 01/14/19 [History] Aspirin [Lo-Dose Aspirin EC] 81 mg PO DAILY 01/14/19 [History] Melatonin [Melatin] 3 mg PO HS PRN 01/14/19 [History] Allergies/Adverse Reactions: Allergy/AdvReac Type Severity Reaction Status Date / Time Penicillins [PCN] Allergy Hives Verified 01/14/19 10:19 Labs on day of discharge: Labs from last 24 hours 01/21/19 01/21/19 01/21/19 11:34 07:24 06:02 WBC RBC Hgb Hct MCV MCH MCHC RDW Plt Count MPV Immature Gran % Seg Neutrophils % Lymphocytes % Monocytes % Eosinophils % Basophils % Neutrophils # Lymphocytes # Monocytes # Eosinophils # Basophils # Platelet Estimate Heparin Anti-Xa, Unfract Sample Site R Radial ABG pH 7.44 ABG pCO2 53 H ABG pO2 52 L ABG HCO3 36 H ABG Total CO2 38 H ABG O2 Saturation 87 L ABG Base Excess 10 H Junior Test N/A Respiration Rate 12 O2 Delivery Device BiPAP Blood Gas Modality Avaps Inspired O2 40.0 Tidal Volume 500 PEEP 8 Sodium Potassium Chloride Carbon Dioxide BUN Creatinine Est GFR ( Amer) Est GFR (Non-Af Amer) BUN/Creatinine Ratio Glucose POC Glucose 151 H 137 H Calculated Osmolality Calcium Phosphorus Magnesium Vancomycin Trough 01/21/19 01/21/19 01/21/19 05:00 03:31 03:31 WBC 41.0 H* RBC 3.85 L Hgb 11.6 L Hct 35.7 L MCV 92.7 MCH 30.1 MCHC 32.5 RDW 14.2 Plt Count 331 MPV 9.3 L Immature Gran % 1.0 Seg Neutrophils % 92.6 Lymphocytes % 0.3 Monocytes % 5.9 Eosinophils % 0.0 Basophils % 0.2 Neutrophils # 38.0 H Lymphocytes # 0.1 L Monocytes # 2.4 H Eosinophils # 0.0 Basophils # 0.1 Platelet Estimate Normal Heparin Anti-Xa, Unfract Sample Site ABG pH ABG pCO2 ABG pO2 ABG HCO3 ABG Total CO2 ABG O2 Saturation ABG Base Excess Junior Test Respiration Rate O2 Delivery Device Blood Gas Modality Inspired O2 Tidal Volume PEEP Sodium 138 Potassium 3.5 Chloride 94 L Carbon Dioxide 35 H BUN 41 H Creatinine 1.08 Est GFR ( Amer) > 60 Est GFR (Non-Af Amer) > 60 BUN/Creatinine Ratio 38 H Glucose 177 H POC Glucose 166 H Calculated Osmolality 300 Calcium 9.1 Phosphorus 6.3 H Magnesium 2.2 Vancomycin Trough 01/21/19 01/20/19 01/20/19 03:31 23:49 22:11 WBC RBC Hgb Hct MCV MCH MCHC RDW Plt Count MPV Immature Gran % Seg Neutrophils % Lymphocytes % Monocytes % Eosinophils % Basophils % Neutrophils # Lymphocytes # Monocytes # Eosinophils # Basophils # Platelet Estimate Heparin Anti-Xa, Unfract 0.43 Sample Site ABG pH ABG pCO2 ABG pO2 ABG HCO3 ABG Total CO2 ABG O2 Saturation ABG Base Excess Junior Test Respiration Rate O2 Delivery Device Blood Gas Modality Inspired O2 Tidal Volume PEEP Sodium Potassium Chloride Carbon Dioxide BUN Creatinine Est GFR ( Amer) Est GFR (Non-Af Amer) BUN/Creatinine Ratio Glucose POC Glucose 136 H Calculated Osmolality Calcium Phosphorus Magnesium Vancomycin Trough 30 H 01/20/19 01/20/19 01/20/19 19:27 16:25 15:45 WBC RBC Hgb Hct MCV MCH MCHC RDW Plt Count MPV Immature Gran % Seg Neutrophils % Lymphocytes % Monocytes % Eosinophils % Basophils % Neutrophils # Lymphocytes # Monocytes # Eosinophils # Basophils # Platelet Estimate Heparin Anti-Xa, Unfract 0.40 Sample Site ABG pH ABG pCO2 ABG pO2 ABG HCO3 ABG Total CO2 ABG O2 Saturation ABG Base Excess Junior Test Respiration Rate O2 Delivery Device Blood Gas Modality Inspired O2 Tidal Volume PEEP Sodium Potassium Chloride Carbon Dioxide BUN Creatinine Est GFR ( Amer) Est GFR (Non-Af Amer) BUN/Creatinine Ratio Glucose POC Glucose 148 H 121 H Calculated Osmolality Calcium Phosphorus Magnesium Vancomycin Trough Preliminary micro results at discharge 01/16/19 17:18 Blood Culture - Preliminary Peripheral Venipuncture Culture is incubating and being continuously monitored for growth. Final report to follow. 01/16/19 12:34 Blood Culture - Preliminary Peripheral Venipuncture Culture is incubating and being continuously monitored for growth. Final report to follow. - Impressions ITS Impressions Abdomen/Pelvis CT 01/14/19 12:21 IMPRESSION: Circumferential rectal wall thickening, with adjacent presacral soft tissue edema. There is also a small lymph nodes seen adjacent to the rectum measuring 7.4 mm. Differential considerations include proctitis, though a circumferential nonobstructive rectal mass cannot be excluded given patient's history of weight loss. Recommend correlation with colonoscopy. No other concerning process seen for neoplasm within the chest, abdomen or pelvis. Trace bilateral pleural effusions, with minimal emphysematous change. Minimal tree-in-bud like opacities noted at the right lung base posteriorly, as well as left basilar airspace disease and some areas of hyperdense material noted which can be seen in the setting of aspiration. Questionable mild bilateral hydronephrosis versus small parapelvic cysts. No obstructive calculi or mass. No ureteral dilation. D/ / David Og MD / David Og MD Interpreting Provider: David Og MD Chest CT 01/14/19 12:21 IMPRESSION: Circumferential rectal wall thickening, with adjacent presacral soft tissue edema. There is also a small lymph nodes seen adjacent to the rectum measuring 7.4 mm. Differential considerations include proctitis, though a circumferential nonobstructive rectal mass cannot be excluded given patient's history of weight loss. Recommend correlation with colonoscopy. No other concerning process seen for neoplasm within the chest, abdomen or pelvis. Trace bilateral pleural effusions, with minimal emphysematous change. Minimal tree-in-bud like opacities noted at the right lung base posteriorly, as well as left basilar airspace disease and some areas of hyperdense material noted which can be seen in the setting of aspiration. Questionable mild bilateral hydronephrosis versus small parapelvic cysts. No obstructive calculi or mass. No ureteral dilation. D/ / David Og MD / David Og MD Interpreting Provider: David Og MD Brain MRI 01/14/19 12:23 IMPRESSION: 1. No acute infarct or acute intracranial process identified. 2. Mild chronic small vessel ischemic changes. D/ / Arcenio Wray MD / Arcenio Wray MD Interpreting Provider: Arcenio Wray MD Videofluoroscopic Swallow 01/15/19 00:01 IMPRESSION: Minimal laryngeal penetration with thin liquids, no evidence for aspiration. Please see separate speech pathology report for full discussion of findings and recommendations. D/ / Emanuel Chavez MD / Emanuel Chavez MD Interpreting Provider: Emanuel Chavez MD Head CT 01/15/19 03:37 IMPRESSION: Severely limited exam with no definite acute intracranial abnormality. Consider repeat imaging once the patient is able to remain still. D/ / Gal Carrizales MD / Gal Carrizales MD Interpreting Provider: Gal Carrizales MD Chest X-Ray 01/16/19 11:12 IMPRESSION: Vague patchy airspace opacities bilaterally, may be related to minimal pulmonary edema versus pneumonia. Mild atelectasis at the left lung base. D/ / Leopoldo Diaz MD / Leopoldo Diaz MD Interpreting Provider: Leopoldo Diaz MD Chest X-Ray 01/16/19 13:53 IMPRESSION: Interval intubation and placement of NG tube. No significant change otherwise. D/ / Karin Qureshi MD / Karin Qureshi MD Interpreting Provider: Karin Qureshi MD X-Ray 01/16/19 13:53 IMPRESSION: Line projecting in the region of the right groin in terminating to the right of midline at the level of L4-L5. D/ / Karin Qureshi MD / Karin Qureshi MD Interpreting Provider: Karin Qureshi MD Echocardiogram Limited Views 01/16/19 13:56 Impressions: LVEF 25-30%. Severe global left ventricular systolic dysfunction. Atypical septal motion consistent with bundle branch block. Left Ventricular Wall Motion: Rest Echo Findings The apex, apical inferior, mid inferior, basal inferior, apical anterior, mid anterior, basal anterior, apical septal, mid inferior septal, basal inferior septal, apical lateral, mid anterior lateral, basal anterior lateral, mid anterior septal, mid inferior lateral, basal anterior septal and basal inferior lateral vance were hypokinetic. Findings: Study Quality * Technically adequate exam. ECG Findings * Normal sinus rhythm. Left Ventricle * LVEF 25-30%. * Moderately dilated left ventricle. * Severe global left ventricular systolic dysfunction. * Definity echo contrast was used. * There is no LV thrombus. * Atypical septal motion consistent with bundle branch block. Chest X-Ray 01/16/19 17:10 IMPRESSION: Endotracheal tube with tip approximately 4.5 cm from the graciela. Small left pleural effusion and patchy airspace disease within the mid and lower left lung, slightly progressed. D/ / Karin Qureshi MD / Karin Qureshi MD Interpreting Provider: Karin Qureshi MD Chest X-Ray 01/17/19 06:43 IMPRESSION: Support lines and tubes are in unchanged position. Small left pleural effusion and left [id number] lung airspace disease has mildly improved. D/ / 01/17/2019 08:39:46 Jeanne Levine MD / ijeoma Interpreting Provider: Jeanne Levine MD Abdomen/Pelvis CT 01/18/19 07:21 IMPRESSION: Within the chest, multifocal airspace disease is seen, greatest in the left lower lobe, increased compared to prior, presumably secondary to pneumonia. There is underlying emphysema. There are small bilateral pleural effusions Persistent but decreased rectal wall thickening. Mild injection of the perirectal fat in the presacral space appears similar. Increased density is seen in the fluid in the bladder. This could represent hemorrhage or contrast D/ / Jesus Cassidy MD / Jesus Cassidy MD Interpreting Provider: Jesus Cassidy MD Chest CT 01/18/19 07:21 IMPRESSION: Within the chest, multifocal airspace disease is seen, greatest in the left lower lobe, increased compared to prior, presumably secondary to pneumonia. There is underlying emphysema. There are small bilateral pleural effusions Persistent but decreased rectal wall thickening. Mild injection of the perirectal fat in the presacral space appears similar. Increased density is seen in the fluid in the bladder. This could represent hemorrhage or contrast D/ / Jesus Cassidy MD / Jesus Cassidy MD Interpreting Provider: Jesus Cassidy MD Foot CT 01/18/19 08:14 IMPRESSION: No evidence of osteomyelitis or abscess. Arthritic changes of the hindfoot and first MTP joint. D/ / 01/18/2019 11:27:42 Hasmukh Chandra MD / jim Interpreting Provider: Hasmukh Chandra MD Chest X-Ray 01/20/19 06:00 IMPRESSION: No substantial interval change. D/ / Emanuel Agosto MD / Emanuel Agosto MD Interpreting Provider: Emanuel Agosto MD Date of admission: 01/15/19 10:44 Primary care physician: Mika Stokes MD Consults: 01/14/19 08:02 Consult to Nutrition [CONS] Routine Comment: Consulting Provider: NUTRITION Reason for Dietary Consult: MST Score Consult to Chancellor [CONS] Routine Reason for SW Consult: Follow for possible needs at discharge. 01/14/19 08:54 Consult to Nephrology [CONS] Stat Consulting Provider: Kidney Gleason/JESSICA/AMIRAH/JOANN Reason for Consult: hyponatremia Call Completed: No 01/14/19 12:18 Consult to Speech Therapy [CONS] Routine Comment: Evaluate, develop and implement POC Reason for Consult: difficult swallowing Call Completed: No 01/14/19 16:53 Consult to Gastroenterology [CONS] Routine Consulting Provider: Gastroenterology Samra Reason for Consult: Suspect rectal mass per CT abd Call Completed: No 01/15/19 12:45 Consult to Pulmonology [CONS] Routine Consulting Provider: Pulm Crit Care & Sleep Samra Reason for Consult: severe hyponatremia Call Completed: Yes 01/15/19 19:47 Consult to Interpret Exam [CONS] Routine Consulting Provider: Ro Thomson Consult to Interpret Exam: Interpret EEG 01/16/19 11:13 Consult to Neurology [CONS] Routine Consulting Provider: Neurology [facility] Reason for Consult: metabolic encephalopathy, worsening mental status despite improving sodium level Call Completed: Yes 01/16/19 12:32 Consult to Critical Care [CONS] Stat Consulting Provider: Pulm Crit Care & Sleep Gleason Reason for Consult: hypoxic, hypercapnic respiratory failure Call Completed: Yes 01/19/19 10:41 Consult to Cardiology [CONS] Routine Comment: Consulting Provider: Cardiology Samra Reason for Consult: EF 25-30%, suspected cardiogenic shock, required intubation, now extubated Call Completed: Yes 01/20/19 12:52 Consult to Nurse Navigator [CONS] Routine Comment: pneumonia/chf 01/20/19 14:47 Consult to Speech Therapy [CONS] Routine Comment: Evaluate, develop and implement POC Reason for Consult: Patient extubated yesterday, has pneumonia, likely aspiration, repeat swallow study Call Completed: No Discharging clinician: Malathi Cullen Anticipated date of discharge: 01/21/19 - Patient Status Disposition: Transfer Other - Discharge Instructions Follow Up With: Michael Gonzalez MD [Partnered Physician] - (Sent web request on 01-15-19 @ [phone]) Mika Stokes MD [Primary Care Provider] - 01/27/19 8:30 am - Hospital Course Hospital course: Mr. Cheema is a 73 year old male with past medical history including coronary artery disease with history of 3 stent placement, congestive heart failure with ejection fraction 25-30% and scheduled for AICD placement for January 22, hyperlipidemia, hypertension, skin basal cell carcinoma, who presented to [facility] for chief complaint of cough. Patient was treated as bronchitis. He was also found to have hyponatremia and was treated with 0.9% saline. Patient was transferred to [facility] for further management. Patient was also complaining of dysphagia. MR brain was done and negative for stroke. The patient's hyponatremia, CT chest showed no signs of lung cancer. Nephrology was consulted. Labs normal. He was started on salt tabs. Hyponatremia was unclear etiology. This has resolved and salt high labs have been discontinued. The patient was then not following commands and had decreased altered mental status. Head CT showed no acute intracranial abnormality. Neurology was consult. Patient had nonfocal examination. The patient also had an abdominal and pelvis CT which showed circumferential rectal wall thickening with adjacent presacral soft tissue edema. GI was consulted and recommended colonoscopy once acute issues resolve. On January 16, the patient had difficulty breathing. ABG was obtained and showed hypercapnic and hypoxemic respiratory failure. Patient was placed on BiPAP. He had also increased altered mental status. He is transferred to the ICU. Blood pressures were hypotensive. Upon arrival to the ICU, a right common femoral vein central line was placed and pressors were started. The patient was intubated and placed on mechanical ventilation. Chest x-ray was obtained that showed small left pleural effusion and left mid to lower lung airspace disease. Repeat echocardiogram was obtained that showed unchanged left ventricular ejection fraction of 25-30% with severe global left ventricular systolic dysfunction and atypical septal motion consistent with bundle branch block. EKG was also obtained that was unchanged from prior and showed a left bundle-branch block that is chronic. The patient was also started on broad-spectrum antibiotics. On January 18, The patient had worsening leukocytosis. He remained on vancomycin. Antibiotics were changed to meropenem. Chest CT showed multifocal airspace disease, greatest in the left lower lobe increased from prior with small bilateral pleural effusions. Bronchoscopy was done. Results showed left lower lobe pneumonia, mucous plug, therapeutic suctioning and brown go alveolar lavage. Culture showed normal respiratory nicole. Gram stain was negative. Urine legionella Ag and strep pneumoniae ag were negative. Influenza negative. On January 19, the patient was extubated and placed on BiPAP. The patient became diaphoretic and appeared to be in respiratory distress. BiPAP was placed on AVAPS setting. Day 4 of meropenem today. Had worsening leukocytosis however has been on IV solu medrol which was discontinued. Troponin was elevated at 0.26. EKG showed new ST changes in V4, V5 otherwise sinus tachycardia with left bundle branch block. Six-hour troponin was elevated at 5.58. Heparin drip was started. Cardiology was consult. Cardiology recommended continuing heparin drip and his home medications including aspirin, statin. This also started on Lopressor every 6 hours with blood pressure parameters. Troponin continue to elevate at 11.81 and 25.39. There is a concern for lower extremity ischemia, however pulses were palpable and equal. ANUPAM and right lower extremity Doppler were obtained. ANUPAM was normal and right lower extremity Doppler was negative for ischemia. Patient never complained of chest pain. This morning, the patient took his bite to eat. He became hypoxic. BiPAP was placed back on. Patient then developed sinus tachycardia with heart rate 160. He had a 6 beat run of ventricular tachycardia. At that time. Pads were placed. Repeat troponin was ordered. Amiodarone bolus and drip were initiated. Repeat EKG showed atrial fibrillation with rapid ventricular rate and left bundle-branch block area and the patient then went into sinus tachycardia. Cardiology was called and reevaluated the patient. They state at this time it is recommended the patient should have a left heart catheterization and is likely having an ongoing myocardial infarction. However the patient is high risk and may not be able to lay flat and may require reintubation. They recommend transfer to a tertiary facility. Secondary to the patient's insurance. Patient has been accepted at [facility]. Dr. Patricio is the Customer Service Trainer and discussed with Dr. Ramirez, who accepts patient. Patient will be transfered via ground transport on amiodarone drip and heparin drip and BiPAP. He denies chest pain or shortness of breath. He is still sinus tachycardia with rate 100, normotensive. Family is agreeable to transfer. - Time Spent with Patient Total time spent providing and/or coordinating discharge services: Physical Examination Vital Signs: Vital Signs, Last 4 Hours Temp Resp BP Pulse Ox 01/21/19 12:18 98.1 F 01/21/19 09:42 34 110/65 96 General appearance: no acute distress, other (on BiPAP) Eyes: nonicteric, other (EOMI, anisicoria, pupils round and reactive to light) ENT: oropharynx moist Neck: supple, no JVD Effort: other (diminished breath sounds bilaterally otherwise clear) Cardiovascular: other (regular rhyth, tachycardic.) Integumentary: other (blanching erythema of right foot, warm, dry, intact) Extremities: no cyanosis, no edema, other (no calf tenderness) Musculoskeletal: no deformities CN II-XII normal, other (generalized weakness, finger to nose normal, strength bilateral pper extremities 4/5, LLE 5/5, chronic RLE weakness and wears brace, 4/5.) mood appropriate, affect normal <Miguel Wilson - Last Filed: 01/21/19 15:38> Orders not resulted at time of discharge: Pending orders 01/16/19 17:18 Culture,Blood [BC] Stat 01/18/19 11:56 Sputum Culture [Culture,Sputum with Gram Stain] [RM] Stat 01/18/19 13:10 AFB Culture, Respiratory [TB] Routine AFB Smear [TB] Routine Fungal Culture [MYC] Routine Herpes Simplex PCR Body Fl Routine Legionella Culture [RM] Routine Resp.Virus Panel,Body Fl Routine 01/21/19 09:43 Troponin I Stat 01/21/19 14:42 Culture,Blood [BC] Stat 01/21/19 22:52 Heparin anti-factor XA UFH [COAG] Timed Date of Encounter: 01/21/19 Labs on day of discharge: Labs from last 24 hours 01/21/19 01/21/19 01/21/19 11:34 07:24 06:02 WBC RBC Hgb Hct MCV MCH MCHC RDW Plt Count MPV Immature Gran % Seg Neutrophils % Lymphocytes % Monocytes % Eosinophils % Basophils % Neutrophils # Lymphocytes # Monocytes # Eosinophils # Basophils # Platelet Estimate Heparin Anti-Xa, Unfract Sample Site R Radial ABG pH 7.44 ABG pCO2 53 H ABG pO2 52 L ABG HCO3 36 H ABG Total CO2 38 H ABG O2 Saturation 87 L ABG Base Excess 10 H Junior Test N/A Respiration Rate 12 O2 Delivery Device BiPAP Blood Gas Modality Avaps Inspired O2 40.0 Tidal Volume 500 PEEP 8 Sodium Potassium Chloride Carbon Dioxide BUN Creatinine Est GFR ( Amer) Est GFR (Non-Af Amer) BUN/Creatinine Ratio Glucose POC Glucose 151 H 137 H Calculated Osmolality Calcium Phosphorus Magnesium Vancomycin Trough 01/21/19 01/21/19 01/21/19 05:00 03:31 03:31 WBC 41.0 H* RBC 3.85 L Hgb 11.6 L Hct 35.7 L MCV 92.7 MCH 30.1 MCHC 32.5 RDW 14.2 Plt Count 331 MPV 9.3 L Immature Gran % 1.0 Seg Neutrophils % 92.6 Lymphocytes % 0.3 Monocytes % 5.9 Eosinophils % 0.0 Basophils % 0.2 Neutrophils # 38.0 H Lymphocytes # 0.1 L Monocytes # 2.4 H Eosinophils # 0.0 Basophils # 0.1 Platelet Estimate Normal Heparin Anti-Xa, Unfract Sample Site ABG pH ABG pCO2 ABG pO2 ABG HCO3 ABG Total CO2 ABG O2 Saturation ABG Base Excess Junior Test Respiration Rate O2 Delivery Device Blood Gas Modality Inspired O2 Tidal Volume PEEP Sodium 138 Potassium 3.5 Chloride 94 L Carbon Dioxide 35 H BUN 41 H Creatinine 1.08 Est GFR ( Amer) > 60 Est GFR (Non-Af Amer) > 60 BUN/Creatinine Ratio 38 H Glucose 177 H POC Glucose 166 H Calculated Osmolality 300 Calcium 9.1 Phosphorus 6.3 H Magnesium 2.2 Vancomycin Trough 01/21/19 01/20/19 01/20/19 03:31 23:49 22:11 WBC RBC Hgb Hct MCV MCH MCHC RDW Plt Count MPV Immature Gran % Seg Neutrophils % Lymphocytes % Monocytes % Eosinophils % Basophils % Neutrophils # Lymphocytes # Monocytes # Eosinophils # Basophils # Platelet Estimate Heparin Anti-Xa, Unfract 0.43 Sample Site ABG pH ABG pCO2 ABG pO2 ABG HCO3 ABG Total CO2 ABG O2 Saturation ABG Base Excess Junior Test Respiration Rate O2 Delivery Device Blood Gas Modality Inspired O2 Tidal Volume PEEP Sodium Potassium Chloride Carbon Dioxide BUN Creatinine Est GFR ( Amer) Est GFR (Non-Af Amer) BUN/Creatinine Ratio Glucose POC Glucose 136 H Calculated Osmolality Calcium Phosphorus Magnesium Vancomycin Trough 30 H 01/20/19 01/20/19 01/20/19 19:27 16:25 15:45 WBC RBC Hgb Hct MCV MCH MCHC RDW Plt Count MPV Immature Gran % Seg Neutrophils % Lymphocytes % Monocytes % Eosinophils % Basophils % Neutrophils # Lymphocytes # Monocytes # Eosinophils # Basophils # Platelet Estimate Heparin Anti-Xa, Unfract 0.40 Sample Site ABG pH ABG pCO2 ABG pO2 ABG HCO3 ABG Total CO2 ABG O2 Saturation ABG Base Excess Junior Test Respiration Rate O2 Delivery Device Blood Gas Modality Inspired O2 Tidal Volume PEEP Sodium Potassium Chloride Carbon Dioxide BUN Creatinine Est GFR ( Amer) Est GFR (Non-Af Amer) BUN/Creatinine Ratio Glucose POC Glucose 148 H 121 H Calculated Osmolality Calcium Phosphorus Magnesium Vancomycin Trough Preliminary micro results at discharge 01/16/19 17:18 Blood Culture - Preliminary Peripheral Venipuncture Culture is incubating and being continuously monitored for growth. Final report to follow. - Impressions ITS Impressions Abdomen/Pelvis CT 01/14/19 12:21 IMPRESSION: Circumferential rectal wall thickening, with adjacent presacral soft tissue edema. There is also a small lymph nodes seen adjacent to the rectum measuring 7.4 mm. Differential considerations include proctitis, though a circumferential nonobstructive rectal mass cannot be excluded given patient's history of weight loss. Recommend correlation with colonoscopy. No other concerning process seen for neoplasm within the chest, abdomen or pelvis. Trace bilateral pleural effusions, with minimal emphysematous change. Minimal tree-in-bud like opacities noted at the right lung base posteriorly, as well as left basilar airspace disease and some areas of hyperdense material noted which can be seen in the setting of aspiration. Questionable mild bilateral hydronephrosis versus small parapelvic cysts. No obstructive calculi or mass. No ureteral dilation. D/ / David Og MD / David Og MD Interpreting Provider: David Og MD Chest CT 01/14/19 12:21 IMPRESSION: Circumferential rectal wall thickening, with adjacent presacral soft tissue edema. There is also a small lymph nodes seen adjacent to the rectum measuring 7.4 mm. Differential considerations include proctitis, though a circumferential nonobstructive rectal mass cannot be excluded given patient's history of weight loss. Recommend correlation with colonoscopy. No other concerning process seen for neoplasm within the chest, abdomen or pelvis. Trace bilateral pleural effusions, with minimal emphysematous change. Minimal tree-in-bud like opacities noted at the right lung base posteriorly, as well as left basilar airspace disease and some areas of hyperdense material noted which can be seen in the setting of aspiration. Questionable mild bilateral hydronephrosis versus small parapelvic cysts. No obstructive calculi or mass. No ureteral dilation. D/ / David Og MD / David Og MD Interpreting Provider: David Og MD Brain MRI 01/14/19 12:23 IMPRESSION: 1. No acute infarct or acute intracranial process identified. 2. Mild chronic small vessel ischemic changes. D/ / Arcenio Wray MD / Arcenio Wray MD Interpreting Provider: Arcenio Wray MD Videofluoroscopic Swallow 01/15/19 00:01 IMPRESSION: Minimal laryngeal penetration with thin liquids, no evidence for aspiration. Please see separate speech pathology report for full discussion of findings and recommendations. D/ / Emanuel Chavez MD / Emanuel Chavez MD Interpreting Provider: Emanuel Chavez MD Head CT 01/15/19 03:37 IMPRESSION: Severely limited exam with no definite acute intracranial abnormality. Consider repeat imaging once the patient is able to remain still. D/ / Gal Carrizales MD / Gal Carrizales MD Interpreting Provider: Gal Carrizales MD Chest X-Ray 01/16/19 11:12 IMPRESSION: Vague patchy airspace opacities bilaterally, may be related to minimal pulmonary edema versus pneumonia. Mild atelectasis at the left lung base. D/ / Leopoldo Diaz MD / Leopoldo Diaz MD Interpreting Provider: Leopoldo Diaz MD Chest X-Ray 01/16/19 13:53 IMPRESSION: Interval intubation and placement of NG tube. No significant change otherwise. D/ / Karin Qureshi MD / Karin Qureshi MD Interpreting Provider: Karin Qureshi MD X-Ray 01/16/19 13:53 IMPRESSION: Line projecting in the region of the right groin in terminating to the right of midline at the level of L4-L5. D/ / Karin Qureshi MD / Karin Qureshi MD Interpreting Provider: Karin Qureshi MD Echocardiogram Limited Views 01/16/19 13:56 Impressions: LVEF 25-30%. Severe global left ventricular systolic dysfunction. Atypical septal motion consistent with bundle branch block. Left Ventricular Wall Motion: Rest Echo Findings The apex, apical inferior, mid inferior, basal inferior, apical anterior, mid anterior, basal anterior, apical septal, mid inferior septal, basal inferior septal, apical lateral, mid anterior lateral, basal anterior lateral, mid anterior septal, mid inferior lateral, basal anterior septal and basal inferior lateral vance were hypokinetic. Findings: Study Quality * Technically adequate exam. ECG Findings * Normal sinus rhythm. Left Ventricle * LVEF 25-30%. * Moderately dilated left ventricle. * Severe global left ventricular systolic dysfunction. * Definity echo contrast was used. * There is no LV thrombus. * Atypical septal motion consistent with bundle branch block. Chest X-Ray 01/16/19 17:10 IMPRESSION: Endotracheal tube with tip approximately 4.5 cm from the graciela. Small left pleural effusion and patchy airspace disease within the mid and lower left lung, slightly progressed. D/ / Karin Qureshi MD / Karin Qureshi MD Interpreting Provider: Karin Qureshi MD Chest X-Ray 01/17/19 06:43 IMPRESSION: Support lines and tubes are in unchanged position. Small left pleural effusion and left [id number] lung airspace disease has mildly improved. D/ / 01/17/2019 08:39:46 Jeanne Levine MD / ijeoma Interpreting Provider: Jeanne Levine MD Abdomen/Pelvis CT 01/18/19 07:21 IMPRESSION: Within the chest, multifocal airspace disease is seen, greatest in the left lower lobe, increased compared to prior, presumably secondary to pneumonia. There is underlying emphysema. There are small bilateral pleural effusions Persistent but decreased rectal wall thickening. Mild injection of the perirectal fat in the presacral space appears similar. Increased density is seen in the fluid in the bladder. This could represent hemorrhage or contrast D/ / Jesus Cassidy MD / Jesus Cassidy MD Interpreting Provider: Jesus Cassidy MD Chest CT 01/18/19 07:21 IMPRESSION: Within the chest, multifocal airspace disease is seen, greatest in the left lower lobe, increased compared to prior, presumably secondary to pneumonia. There is underlying emphysema. There are small bilateral pleural effusions Persistent but decreased rectal wall thickening. Mild injection of the perirectal fat in the presacral space appears similar. Increased density is seen in the fluid in the bladder. This could represent hemorrhage or contrast D/ / Jesus Cassidy MD / Jesus Cassidy MD Interpreting Provider: Jesus Cassidy MD Foot CT 01/18/19 08:14 IMPRESSION: No evidence of osteomyelitis or abscess. Arthritic changes of the hindfoot and first MTP joint. D/ / 01/18/2019 11:27:42 Hasmukh Chandra MD / jim Interpreting Provider: Hasmukh Chandra MD Chest X-Ray 01/20/19 06:00 IMPRESSION: No substantial interval change. D/ / Emanuel Agosto MD / Emanuel Agosto MD Interpreting Provider: Emanuel Agosto MD Date of admission: 01/15/19 10:44 Primary care physician: Mika Stokes MD Consults: 01/14/19 08:02 Consult to Nutrition [CONS] Routine Comment: Consulting Provider: NUTRITION Reason for Dietary Consult: MST Score Consult to Chancellor [CONS] Routine Reason for SW Consult: Follow for possible needs at discharge. 01/14/19 08:54 Consult to Nephrology [CONS] Stat Consulting Provider: Kidney Gleason/JESSICA/AMIRAH/JOANN Reason for Consult: hyponatremia Call Completed: No 01/14/19 12:18 Consult to Speech Therapy [CONS] Routine Comment: Evaluate, develop and implement POC Reason for Consult: difficult swallowing Call Completed: No 01/14/19 16:53 Consult to Gastroenterology [CONS] Routine Consulting Provider: Gastroenterology Samra Reason for Consult: Suspect rectal mass per CT abd Call Completed: No 01/15/19 12:45 Consult to Pulmonology [CONS] Routine Consulting Provider: Pulm Crit [facility] Sleep [facility] Reason for Consult: severe hyponatremia Call Completed: Yes 01/15/19 19:47 Consult to Interpret Exam [CONS] Routine Consulting Provider: Ro Thomson Consult to Interpret Exam: Interpret EEG 01/16/19 11:13 Consult to Neurology [CONS] Routine Consulting Provider: [facility] Reason for Consult: metabolic encephalopathy, worsening mental status despite improving sodium level Call Completed: Yes 01/16/19 12:32 Consult to Critical Care [CONS] Stat Consulting Provider: Pulm Crit Care & Sleep [facility] Reason for Consult: hypoxic, hypercapnic respiratory failure Call Completed: Yes 01/19/19 10:41 Consult to Cardiology [CONS] Routine Comment: Consulting Provider: Cardiology Samra Reason for Consult: EF 25-30%, suspected cardiogenic shock, required intubation, now extubated Call Completed: Yes 01/20/19 12:52 Consult to Nurse Navigator [CONS] Routine Comment: pneumonia/chf 01/20/19 14:47 Consult to Speech Therapy [CONS] Routine Comment: Evaluate, develop and implement POC Reason for Consult: Patient extubated yesterday, has pneumonia, likely aspiration, repeat swallow study Call Completed: No - Hospital Course Hospital course: Mr. Cheema is a 73 year old male - Time Spent with Patient Total time spent providing and/or coordinating discharge services: Physical Examination Vital Signs: Vital Signs, Last 4 Hours Temp Pulse Resp BP Pulse Ox 01/21/19 15:17 20 109/68 99 01/21/19 14:00 95 28 99/67 100 01/21/19 12:18 98.1 F 01/21/19 12:00 104 26 89/65 100 - Attending Attestation I examined this patient and my medical decision-making was reviewed with the Resident Physician. I agree with the documented findings, disposition and treatment plan as described except to the extent set forth below. Patient seen and examined. Labs, radiology, chart personally reviewed. Agree with resident's history and physical, assessment, plan with following comments: Patient had very complicated course and he was on the mechanical invasive ventilation then successfully was extubated and his troponin continued to go up. Patient was treated with broad-spectrum antibiotics and cardiology recommended patient to be transferred to [place] for further workup. I had multiple discussion with the family at the bedside in the presence of the nurse regarding his condition and I did my best to explain to them this is most likely combination of his cardiac and pneumonia and he has been treated with broad- spectrum antibiotics. Patient had arrhythmias this morning and for that reason he was told by cardiology to be transferred to [place] which I agree with the plan since he has ischemic cardiomyopathy.
--- NOTE | 2019-01-21 13:01 | Electrocardiograph Report ---
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
[2019-01-21] MEDS ORDERED: Heparin 25,000 UNIT/250 ML D5W 25,000 UNIT/250 ML IV.SOLN IVC SCH (14:45)
[2019-01-21 16:10] LABS: Influenza A PCR Body Fluid NOT DETECTED; Influenza B PCR Body Fluid NOT DETECTED; RVP Body Fluid Source BAL LLL
[2019-01-21] MEDS ORDERED: Aminoglycoside Consult 1 EACH MC ONE (18:39)
[2019-01-21 19:02] VITALS: BP 117/59
[2019-01-21] MEDS ORDERED: Amiodarone Premix 360 MG/200 ML BAG IVC SCH (22:15)
[2019-01-22 09:40] LABS: RSV PCR Body Fluid NOT DETECTED
[2019-01-22 11:34] LABS: HSV Source BAL LLL
--- NOTE | 2019-01-23 08:21 | Electrocardiograph Report ---
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
== END 2019-01-21 18:40 | disposition other institution (70) | DRG 640 ==
LOC: 2NNU → SUATTDRO 07:17 → ICNU 01-16 13:08
PROVIDERS: ADMIT Internal Medicine; ATTEND Internal Medicine